=== PATIENT | female | born 1955 | race Caucasian/White ===

== ENCOUNTER 2018-08-17 09:05 | Day surgery (SDC) | payer MEDICARE ==
[~2018-08-17] VITALS: Ht 162.6 cm; Wt 46.7 kg
[~2018-08-17 09:05] MED LIST: ASPI1TAB PO; ATOR1TAB21; KEPP500T13 PO; LIDOCAINE 2% INJ 100 MG/5 ML SDV (FOR ANES.) As Ordered ONE; NS 1,000 ML IV ONE; PROPOFOL 200 MG/20 ML VIAL As Ordered ONE; SERT-138 PO; VITA1DRO SL
--- NOTE | 2018-08-17 10:35 | ROOR ---
Patient Name: Gretchen Mckenna Procedure Date: 08/17/2018 10:05 AM Date of : 1955 Age: 63 Room: [facility] Gender: Female Note Status: Finalized Procedure: Colonoscopy Indications: Screening in patient at increased risk: Family history of 1st-degree relative with colorectal cancer before age 60 years Providers: DO Otto Jones MD: Malaika Hu NP Requesting Provider: Medicines: Propofol per Anesthesia Complications: No immediate complications. Estimated blood loss: None. Procedure: Pre-Anesthesia Assessment: - Prior to the procedure, a History and Physical was performed, and patient medications and allergies were reviewed. The patient is competent. The risks and benefits of the procedure and the sedation options and risks were discussed with the patient. All questions were answered and informed consent was obtained. Patient identification and proposed procedure were verified by the physician, the nurse, the anesthesiologist and the avionics test technician in the endoscopy suite. Mental Status Examination: alert and oriented. Airway Examination: normal oropharyngeal airway and neck mobility. Respiratory Examination: clear to auscultation. CV Examination: normal. Prophylactic Antibiotics: The patient does not require prophylactic antibiotics. Prior Anticoagulants: The patient has taken no previous anticoagulant or antiplatelet agents. ASA Grade Assessment: II - A patient with mild systemic disease. After reviewing the risks and benefits, the patient was deemed in satisfactory condition to undergo the procedure. The anesthesia plan was to use monitored anesthesia care (MAC). Immediately prior to administration of medications, the patient was re-assessed for adequacy to receive sedatives. The heart rate, respiratory rate, oxygen saturations, blood pressure, adequacy of pulmonary ventilation, and response to care were monitored throughout the procedure. The physical status of the patient was re-assessed after the procedure. The Colonoscope was introduced through the anus and advanced to the cecum, identified by the appendiceal orifice, IC valve and transillumination. The colonoscopy was performed without difficulty. The patient tolerated the procedure well. Findings: Multiple small and large-mouthed diverticula were found in the entire colon. The exam was otherwise without abnormality on direct and retroflexion views. Impression: - Diverticulosis in the entire examined colon. - The examination was otherwise normal on direct and retroflexion views. - No specimens collected. Recommendation: - Patient has a contact number available for emergencies. The signs and symptoms of potential delayed complications were discussed with the patient. Return to normal activities tomorrow. Written discharge instructions were provided to the patient. - Repeat colonoscopy in 3 - 5 years for surveillance. - Return to my office PRN. Juvenal Nicholson DO 08/17/2018 10:34:34 AM This report has been signed electronically. Number of Addenda: 0 Note Initiated On: 08/17/2018 10:05 AM Estimated Blood Loss: Estimated blood loss: none.
[2018-08-17 11:05] VITALS: BP 101/59
== END 2018-08-17 11:20 | disposition home or self-care (01) ==
LOC: M OPP 09:05
PROVIDERS: ATTEND Surgery
DX: Z12.11 Encounter for screening for malignant neoplasm of colon (principal); Z80.0 Family history of malignant neoplasm of digestive organs; K57.92 Diverticulitis of intestine, part unspecified, without perforation or abscess without bleeding; E78.5 Hyperlipidemia, unspecified; Z92.21 Personal history of antineoplastic chemotherapy; Z85.3 Personal history of malignant neoplasm of breast; B19.10 Unspecified viral hepatitis B without hepatic coma; M54.9 Dorsalgia, unspecified; F41.9 Anxiety disorder, unspecified; F32.9 Major depressive disorder, single episode, unspecified; R56.9 Unspecified convulsions; C71.9 Malignant neoplasm of brain, unspecified; Z78.0 Asymptomatic menopausal state; Z92.3 Personal history of irradiation; Z87.440 Personal history of urinary (tract) infections; F17.210 Nicotine dependence, cigarettes, uncomplicated; Z88.5 Allergy status to narcotic agent; Z91.040 Latex allergy status; Z91.018 Allergy to other foods; Z79.82 Long term (current) use of aspirin; Z79.899 Other long term (current) drug therapy

== ENCOUNTER → 2019-01-23 | Outpatient (CLI) | payer MEDICARE ==
[~2019-01-23] MED LIST changes: -ASPI1TAB PO; +ASPI81TA26 PO; +CRES20TA2 PO; -LIDOCAINE 2% INJ 100 MG/5 ML SDV (FOR ANES.) As Ordered ONE; +MACR50CA10 PO; +NITR-67 PO; -NS 1,000 ML IV ONE; +PROHANCE 279.3MG/ML 5ML VIAL (A9576) As Ordered ONE; -PROPOFOL 200 MG/20 ML VIAL As Ordered ONE
--- NOTE | 2019-01-24 10:04 | REPVR ---
EXAM: MR Head Without and With Contrast EXAM DATE/TIME: 01/23/2019 3:07 PM CLINICAL HISTORY: 63 years old, female; Condition or disease; Brain tumor; Neoplasm of brain, not specified; Prior surgery; Surgery date: 6+ months; Surgery type: Crainiotomy; Additional info: Restaging brain tumor TECHNIQUE: Imaging protocol: MR of the head without and with intravenous contrast. Contrast material: PROHANCE; Contrast volume: 9 ml; Contrast route: 23G BUTTERFLY; COMPARISON: No relevant prior studies available. FINDINGS: Brain: A large postsurgical cavity centered in the anterior inferior lateral right frontal lobe. There is pre-contrast T1 hyperintensity within the deep margin of the cavity. Comparing precontrast and post contrast T1 images no abnormal enhancement. If this is the first postoperative study, this could be used as a baseline for interval followup. If there are previous postoperative exams, these may be helpful for comparison purposes. Confluent nonspecific Flair/T2 hyperintensities within the cerebral white matter statistically most likely on the basis of chronic small vessel ischemic change. There is a small right convexity subdural collection measuring approximately 3 mm in depth over the right frontal parietal region and approximately 6 mm in depth lateral to the right temporal lobe. Minimal mild mass effect on the underlying cortical sulci but no midline shift. There is no evidence of parenchymal hemorrhage. No extra-axial collections. No subarachnoid blood. Ventricles: Normal. No ventriculomegaly. Bones/joints: Prior right-sided craniotomy. Soft tissues: Normal. Sinuses: Normal as visualized. No acute sinusitis. Mastoid air cells: Normal as visualized. No mastoid effusion. Orbits: Unremarkable. IMPRESSION: Large postsurgical cavity centered in the anterior inferior lateral right frontal lobe. There is pre-contrast T1 hyperintensity within the deep margin of the cavity. Comparing precontrast and post contrast T1 images no suspicious enhancement. If this is the first postoperative study, this could be used as a baseline for interval followup. If there are previous postoperative exams, these may be helpful for comparison purposes. Confluent nonspecific Flair/T2 hyperintensities within the cerebral white matter statistically most likely on the basis of chronic small vessel ischemic change. There is a small right convexity subdural collection measuring approximately 3 mm in depth over the right frontal parietal region and approximately 6 mm in depth lateral to the right temporal lobe. Minimal mild mass effect on the underlying cortical sulci but no midline shift. There is no evidence of parenchymal hemorrhage. No extra-axial collections. No subarachnoid blood. Electronically signed by: Rikki Jaramillo On 01/24/2019 10:04:34 AM
== END ==
LOC: M RAD 12:28
PROVIDERS: ATTEND Internal Medicine Hematology & Oncology
DX: G93.89 Other specified disorders of brain (principal)
CPT/HCPCS: 70553; A9576

== ENCOUNTER → 2019-07-17 | Outpatient (CLI) | payer MEDICARE ==
--- NOTE | 2019-07-17 15:48 | REPVR ---
PROCEDURE INFORMATION: Exam: MR Head Without and With Contrast Exam date and time: 07/17/2019 2:25 PM Age: 64 years old Clinical indication: Condition or disease; Neoplasm of brain, not specified; Prior surgery; Surgery date: 6+ months; Surgery type: Tumor dissection; Patient HX: Recurring brain tumor that has been resected 1x; Additional info: Brain CA, restaging TECHNIQUE: Imaging protocol: MR of the head without and with intravenous contrast. Contrast material: PROHANCE; Contrast volume: 10 ml; Contrast route: 22G ANGIO; COMPARISON: MRI-Brain W/O FOLL BY WITH 01/23/2019 2:22 PM FINDINGS: Limitations: The study is mildly limited due to patient motion artifact. Brain: There is a 4.5 cm cystic resection cavity in the right frontal lobe. Encephalomalacia is present around the resection cavity. No enhancing lesions were identified after the administration of contrast. The previously noted subdural fluid collection around the right cerebral hemisphere has resolved. No restricted diffusion is seen to suggest acute infarction. There is no acute intracranial hemorrhage, cerebral edema, or midline shift. Age-related cerebral and cerebellar substance loss is present. Confluent increased T2 and FLAIR signal within the periventricular and subcortical white matter is present. This is nonspecific but likely related to post treatment changes and/or chronic microangiopathic ischemic changes. Ventricles: Mild ex vacuo dilation of the lateral and third ventricles is noted. Bones/joints: A right frontal craniotomy is noted. Soft tissues: Unremarkable. Sinuses: Normal as visualized. No acute sinusitis. Mastoid air cells: Normal as visualized. No mastoid effusion. Orbits: The patient is likely status post right cataract surgery. IMPRESSION: 1. No acute intracranial abnormality. 2. Chronic findings as discussed above. Electronically signed by: Vernon Sandoval On 07/17/2019 15:48:12 PM
== END ==
LOC: M RAD 12:33
PROVIDERS: ATTEND Internal Medicine Hematology & Oncology
DX: C71.9 Malignant neoplasm of brain, unspecified (principal)
CPT/HCPCS: 70553; A9576

== ENCOUNTER 2020-01-23 09:59 | Inpatient (IN) | payer MEDICARE, MEDICAID ==
[~2020-01-23] VITALS: Ht 162.6 cm; Wt 53.2 kg
[~2020-01-23 09:59] MED LIST changes: +AMOX875T2 PO; -PROHANCE 279.3MG/ML 5ML VIAL (A9576) As Ordered ONE
[2020-01-23] MEDS ORDERED: MORPHINE 4 MG/ML 1ML VIAL/SYRINGE (J2270) IV ONE (10:30)
[2020-01-23] MEDS ORDERED: ONDANSETRON 4MG/2ML VIAL IV ONE (10:30)
[2020-01-23 10:50] LABS: BASO % 0.2 % (0.0-1.0); HEMATOCRIT 39.5 % (36.0-47.0); HEMOGLOBIN 13.3 g/dl (12.0-15.5); LYMPH # 1.4 10^3/uL (1.5-5.0); LYMPH % 11.8 % (24.0-44.0); MEAN CORPUSCULAR HEMOGLOBIN 29.6 pg (27.0-33.0); MEAN CORPUSCULAR HGB CONC 33.7 g/dl (32.0-36.5); MEAN CORPUSCULAR VOLUME 87.8 fl (80.0-96.0); MONO % 8.8 % (0.0-5.0); NEUTROPHILS # 9.2 10^3/uL (1.5-8.5); NEUTROPHILS % 78.7 % (36.0-66.0); PLATELET COUNT, AUTOMATED 257 10^3/uL (150-450); WHITE BLOOD COUNT 11.7 10^3/uL (4.0-10.0)
--- NOTE | 2020-01-23 11:37 | REP ---
Left knee series: Four views. History: Injury in a fall. Findings: Four views of the left knee demonstrate diffuse osteopenia. There is some clothing artifact. No fracture or subluxation is seen. Vascular calcifications noted. Impression: Diffuse osteopenia and vascular calcification. No acute abnormality. Four view knee series. Electronically Signed by Terell Hurtado MD 01/23/2020 11:29 A
--- NOTE | 2020-01-23 11:37 | REP ---
Clinical: Fall. Technique: AP, bilateral oblique and cross-table lateral views of the lumbar spine. Findings: Examination is limited by osteopenia and moderate multilevel degenerative spondylosis. No obvious acute fracture / compression injury or subluxation. Impression: Osteopenia and multilevel degenerative spondylosis. No acute fracture / compression injury or subluxation. Electronically Signed by Rikki Salter MD 01/23/2020 11:29 A
--- NOTE | 2020-01-23 11:41 | REP ---
PELVIS LEFT HIP: Three views. HISTORY: Injury in a fall. FINDINGS: AP view of the pelvis and AP and frog-leg views of the left hip demonstrate a transcervical femoral neck fracture on the left with impaction and varus deformity. There is mild diffuse osteopenia. Bony pelvic ring is intact. No sacral or pelvic fracture is seen. Right hip is intact. Surgical clips are noted in the pelvis. IMPRESSION: Femoral neck fracture on the left with impaction and varus deformity. Electronically Signed by Terell Hurtado MD 01/23/2020 03:55 P
[2020-01-23 12:00] LABS: INR 1.08; PROTHROMBIN TIME 13.7 SECONDS (11.8-14.0)
[2020-01-23 12:01] LABS: PARTIAL THROMBOPLASTIN TIME 38.1 SECONDS (25.0-38.4)
--- NOTE | 2020-01-23 12:08 | REP ---
Clinical: Hip fracture. Technique: Portable AP semiupright view of the chest. Findings: Mediastinum and cardiac silhouette are within normal limits. Lung luna demonstrate chronic-appearing interstitial changes. No focal consolidation, effusion, or pneumothorax. Skeletal structures demonstrate age-related changes. Impression: No acute cardiopulmonary process appreciated. Electronically Signed by Rikki Salter MD 01/23/2020 12:00 P
[2020-01-23 12:10] LABS: ALBUMIN 2.8 GM/DL (3.2-5.2); ALT/SGPT 23 U/L (12-78); BILIRUBIN,DIRECT 0.1 MG/DL (0.0-0.2); BILIRUBIN,TOTAL 0.5 MG/DL (0.2-1.0); BLOOD UREA NITROGEN 17 MG/DL (7-18); CALCIUM LEVEL 7.3 MG/DL (8.8-10.2); CARBON DIOXIDE LEVEL 22 MEQ/L (21-32); CHLORIDE LEVEL 113 MEQ/L (98-107); CREATININE FOR GFR 0.44 MG/DL (0.55-1.30); GLOMERULAR FILTRATION RATE > 60.0 (>45); GLUCOSE, FASTING 107 MG/DL (70-100); POTASSIUM SERUM 3.4 MEQ/L (3.5-5.1); SODIUM LEVEL 141 MEQ/L (136-145); TOTAL PROTEIN 5.9 GM/DL (6.4-8.2)
[2020-01-23] MEDS ORDERED: D31000TA2 PO (13:37)
[2020-01-23] MEDS ORDERED: CYAN100049 PO (13:37)
[2020-01-23] MEDS ORDERED: ONDANSETRON 4MG/2ML VIAL IV PRN ×2 (13:45→23:45)
[2020-01-23] MEDS ORDERED: D5W/0.9% SODIUM CHLORIDE 1,000 ML IV SCH (13:45)
[2020-01-23] MEDS ORDERED: MORPHINE 2 MG/ML 1ML VIAL (J2270) IV PRN (13:45)
[2020-01-23] MEDS ORDERED: MOM 30ML SUSPENSION UDC PO PRN (13:45)
--- NOTE | 2020-01-23 14:22 | HPEPDOC ---
General Date of Admission 01/23/20 Date of Service: Jan 23, 2020 Chief Complaint The patient is a 64-year-old female admitted with a reason for visit of Leg Pain. Source: Patient History of Present Illness 64 year old female had a mechanical fall in her driveway when her left leg became numb and gave way on 01/21/20 and she fell. She called for help and her who was home heard her. She was carried into the house by her and a friend and since then has been laying in the sofa unable to stand up or bear weight on her left leg along with severe pain and muscles spasms. She denied any loss of consciousness. Her pain was 10/10 in intensity , sharp in character at the left groin and associated with severe muscle spasms on minor movement. She did say that she often looses her balance and falls. She fell twice prior to this fall in the last week [place]. In the ED she was found to have left fracture neck femur. 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 recurrent falls. Vit D def Vit B12 def. Surgical History craniotomy C- section x 3 appendectomy ex laparotomy hernia surgery Family History Significant Family History: Cancer (mother coon cancer), Heart disease (father) Social History * Smoker: current smoker Alcohol: occationally (4 to 5 beers a week) A-FIB/CHADSVASC A-FIB History Current/History of A-Fib/PAF?: No Review of Systems Constitutional: Denies: Chills, Fever, Night Sweats Eyes: Denies: Pain, Vision change ENT: Denies: Head Aches, Ear Pain, Dysphagia Skin: Denies: Rash, Lesions, Breakdown Pulmonary: Denies: Dyspnea, Cough Cardiovascular: Denies: Chest Pain, Palpitations, Orthopnea, Paroxysmal Noc. Dyspnea, Lt Headedness Gastrointestinal: Denies: Nausea, Vomiting, Abdominal Pain, Diarrhea Genitourinary: Denies: Dysuria, Frequency, Incontinence, Retention Hematologic: Denies: Bruising, Bleeding Excessively Musculoskeletal: Reports: Joint Pain, Spasms Physical Examination General Exam: Positive: Alert, Cooperative, No Acute Distress Eye Exam: Positive: PERRLA, Conjunctiva & lids normal, EOMI; Negative: Sclera icteric ENT Exam: Positive: Atraumatic, Mucous membr. moist/pink, Pharynx Normal Neck Exam: Positive: Supple; Negative: JVD, thyromegaly Chest Exam: Positive: Clear to auscultation, Normal air movement Heart Exam: Positive: Rate Normal, Regular Rhythm, Normal S1, Normal S2, Murmurs (soft systolic murmur); Negative: Rubs Abdomen Exam: Positive: Normal bowel sounds, Soft; Negative: Tenderness, Hepatospenomegaly Extremity Exam: Positive: Tenderness (let hip and groin area); Negative: Clubbing, Cyanosis, Edema Skin Exam: Positive: Nl turgor and temperature; Negative: Breakdown, Lesion Vital Signs Vital Signs Date Time Temp Pulse Resp B/P (MAP) Pulse Ox O2 Delivery O2 Flow Rate FiO2 01/23/20 11:05 18 01/23/20 10:04 98.0 96 148/79 Room Air Laboratory Data Labs 24H Laboratory Tests 2 01/23/20 10:35: Immature Granulocyte % (Auto) 0.5, Neutrophils (%) (Auto) 78.7H, Lymphocytes (%) (Auto) 11.8L, Monocytes (%) (Auto) 8.8H, Eosinophils (%) (Auto) 0.0, Basophils (%) (Auto) 0.2, Neutrophils # (Auto) 9.2H, Lymphocytes # (Auto) 1.4L, Monocytes # (Auto) 1.0H, Eosinophils # (Auto) 0.0, Basophils # (Auto) 0.0, Nucleated Red Blood Cells % (auto) 0.0 01/23/20 11:25: Prothrombin Time 13.7, Prothromb Time International Ratio 1.08, Activated Partial Thromboplast Time 38.1, Anion Gap 6L, Glomerular Filtration Rate > 60.0, Calcium Level 7.3L, Total Bilirubin 0.5, Direct Bilirubin 0.1, Aspartate Amino Transf (AST/SGOT) 21, Alanine Aminotransferase (ALT/SGPT) 23, Alkaline Phosphatase 62, Total Protein 5.9L, Albumin 2.8L, Albumin/Globulin Ratio 0.9L 01/23/20 12:48: Coronavirus (COVID-19)(PCR) NEGATIVE CBC/BMP Laboratory Tests 01/23/20 10:35 01/23/20 11:25 Assessment/Plan 64 year old female had a mechanical fall in her driveway when her left leg became numb and gave way on 01/21/20 and she fell. She called for help and her who was home heard her. She was carried into the house by her and a friend and since then has been laying in the sofa unable to stand up or bear weight on her left leg along with severe pain and muscles spasms. She denied any loss of consciousness. Her pain was 10/10 in intensity , sharp in character at the left groin and associated with severe muscle spasms on minor movement. She did say that she often looses her balance and falls. She fell twic e prior to this fall in the last week when [place]. In the ED she was found to have left fracture neck femur. Left fracture neck femur ortho consulted Dr Bolivar planned for OR later today NPO, Bedrest, IVF. Morphine for pain control. Post surgery DVT prophylaxis as per ortho. Medical optimization No h/o CAD or CHF , No TIA/ CVA or DM. No CKD EKG sinus rhythm. patient optimized or proposed surgery. Hypokalemia will replace IV Hyperlipidemia statin. H/o of Oligodendroglioma s/p craniotomy and art with mild cognitive impairment Gait disbalance and recurrent falls. PT and OT DVT: TEDs and seq. Plan / VTE VTE Prophylaxis Ordered?: Yes REENA GALVAN MD Jan 23, 2020 14:22
--- NOTE | 2020-01-23 14:35 | ER ---
DATE OF CONSULTATION: 01/23/2020 CHIEF COMPLAINT: Left femoral neck fracture. HISTORY OF PRESENT ILLNESS: This 64-year-old female is seen today for a left hip fracture. She fell in her driveway. She fell using a walker. She normally uses a walker outside the house, otherwise a cane. She had a ground-level fall, was unable to ambulate. I was consulted by the emergency department team at [facility]. She was seen and assessed today at 2 p.m. No head injury or loss of consciousness. No pre-injury hip pain. PAST MEDICAL HISTORY: Includes dyslipidemia and possibly seizures. She is a little bit unclear on her past medical history. MEDICATIONS: Include: - ASA - vitamin D3 - vitamin B12 - simvastatin ALLERGIES: CODEINE, LATEX, and RASPBERRY. PAST SURGICAL HISTORY: None known. SOCIAL HISTORY: She lives with her . They live in a trailer. She uses a walker normally, otherwise a cane. She smokes up to 15 cigarettes a day. Rarely uses alcohol. Does not consume street drugs or IV drugs. PHYSICAL EXAMINATION: Vital Signs: Temperature 98.0. Blood pressure 148/79. Pulse rate 96. Respiratory rate 16. She is on room air. She is alert and times three. She is thin overall. She follows commands. Left hip has no obvious overlying redness, swelling, redness, deformity or atrophy. Left hip was marked. Normal sensation of the foot, superficial and deep peroneal nerves, as well as saphenous, sural, and tibial. She is able wiggle her toes, dorsiflex and plantar flex the foot. Feet are cool but this is the same on both sides. Capillary refill less than 3 seconds. Tibialis and posterior pulse is present but weak. Laboratory examination reveals hemoglobin 13.3. INR 1.08, PT 13.7, APTT 38.1. COVID testing pending. Imaging reveals a left displaced femoral neck fracture. There is moderate hip osteoarthritis. Knee x-ray reviewed. This shows diffuse osteopenia and vascular calcification. No acute abnormalities. No obvious distal extent of the fracture. LB spine radiographs were seen and assessed. No acute fracture or compression injury. ASSESSMENT AND PLAN: 64-year-old female has a left femoral neck fracture that is 100% displaced. We discussed the pros and cons, risks and benefits of nonsurgical management versus surgery. Surgery would be left hip hemiarthroplasty whether cemented or uncemented. One could also consider doing a total hip arthroplasty, but given her preoperative mobility status and no preexisting hip pain I prefer treatment as hemiarthroplasty. Specific surgical risks were discussed include but are not limited to infection, pain, stiffness, weakness, damage to surrounding structures, neurovascular injury, implant related complications like backside warm, implant disassociation, fracture of the implant as well as periprosthetic fracture, intraoperative fracture, instability or dislocation of the hip, anesthetic complications, blood clots, , need for further surgery and other risks not listed. She wished to go ahead. I marked the left lower extremity and signed consent for surgery as well as possible need for blood products. Specific risks include but not limited to infection, bacteria viruses, allergic reaction and fever. She wished to go ahead with a possible need for blood products and signed consent for this as well. I will have the hospitalist see and assess the patient and admit them while they are pending for surgery within the next 48 hours. For now will be made nothing by mouth in preparation for surgery. BRIGID
[2020-01-23] MEDS ORDERED: KCL 40MEQ IN D5/NS 1000ML 1,000 ML IV SCH (15:00)
[2020-01-23] MEDS ORDERED: ceFAZolin 1GM VIAL (J0690 PER 500MG) As Ordered ONE (15:22)
[2020-01-23] MEDS ORDERED: TRANEXAMIC ACID 100 MG/ML 10ML VIAL As Ordered ONE (15:22)
[2020-01-23 15:30] VITALS: BP 149/79
[2020-01-23] MEDS: KCL 40MEQ IN D5/NS 1000ML 1,000 ML IV SCH (16:17)
--- NOTE | 2020-01-23 16:23 | ECGEPIP ---
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
[2020-01-23] MEDS ORDERED: propofoL 200 MG/20 ML VIAL As Ordered ONE (20:35)
[2020-01-23] MEDS ORDERED: LIDOCAINE 2% 100MG/5ML SDV (FOR ANES.) As Ordered ONE (20:35)
[2020-01-23] MEDS ORDERED: BUPIVACAINE/DEXTROSE 0.75% 2 ML AMP As Ordered ONE (20:35)
[2020-01-23] MEDS ORDERED: fentaNYL 100 MCG/2 ML INJECTION (J3010) As Ordered ONE (20:35)
[2020-01-23] MEDS ORDERED: MIDAZOLAM INJ 2MG/2ML VIAL (J2250 PER 1MG) As Ordered ONE (20:35)
[2020-01-23] MEDS: DOCUSATE SODIUM 100 MG CAP PO SCH (20:44)
[2020-01-23] MEDS ORDERED: EPINEPHrine INJ 1 MG/ML 1ML AMP As Ordered ONE (20:51)
[2020-01-23] MEDS ORDERED: PHENYLephrine HCL 500 MCG/5 ML (100MCG/ML) SYRINGE (J2370) As Ordered ONE (21:27)
[2020-01-23] MEDS ORDERED: ceFAZolin 2 GM/D5W 50 ML IV BAG (J0690 PER 500MG) As Ordered ONE (21:36)
[2020-01-23] MEDS ORDERED: ePHEDrine SULFATE 25 MG/5 ML(5MG/ML) SYRINGE As Ordered ONE (22:33)
[2020-01-23] MEDS ORDERED: fentaNYL 100 MCG/2 ML INJECTION (J3010) IV PRN (23:45)
[2020-01-23] MEDS ORDERED: LR 1,000 ML IV SCH (23:45)
--- NOTE | 2020-01-23 23:55 | RO ---
DATE OF PROCEDURE: 01/23/2020 PREOPERATIVE DIAGNOSIS: Left hip femoral neck fracture. POSTOPERATIVE DIAGNOSIS: Left hip femoral neck fracture. PLANNED PROCEDURE: Left hip cemented hemiarthroplasty. PROCEDURE PERFORMED; Left hip cemented hemiarthroplasty. SURGEON: Pranav Bolivar MD AUTO RENTAL SUPERVISOR: None. GLOBAL PROGRAM MANAGER: Tico Saunders TYPE OF ANESTHETIC: Spinal anesthetic. OPERATIVE PREAMBLE: This 64-year-old female had a ground-level fall. She sustained a displaced femoral neck fracture. We talked about the pros, cons, risks, and benefits of nonsurgical management versus going ahead with left hip cemented hemiarthroplasty. I reiterated the risks in preoperative holding. Attempted to reach her ; there are multiple wrong numbers and no answer at the numbers that were there. Marked the left lower extremity and proceeded to surgery. DESCRIPTION OF PROCEDURE: The patient was brought to the operating theater. She was administered spinal anesthetic. She was administered 2 grams of IV Ancef and 3 grams of IV tranexamic acid. The patient was administered light sedation. She was placed left lateral decubitus with the aid of the Starbuck hip positioner. All bony prominences were padded. Sequential compression device (SCDs) used on the down leg. Limb was prepped and draped in the usual sterile fashion allowing over 3 minutes prep solution drying time. Preop time-out was performed to confirm the site, the patient and surgery. Began by making a standard lateral incision centered over the proximal left hip, carried this down through skin and subcutaneous tissue. I curved the incision posteriorly proximally. I incised the tensor fascia evelia in line with skin incision. I sharply dissected off the abductors. I made a T-shaped capsulotomy. I marked these limbs with a #1 Vicryl suture. I made the femoral neck cut approximately one fingerbreadth above the level of the lesser trochanter, 2 cm distal to the cut with preoperative templating. I then removed the head. I sized this to be a 46 mm head. I used the box osteotome to start broaching the canal and lateralizing. I used the lateralizing reamer and canal finding reamer. I broached up to a size 5. This was sitting a little bit proud, so then I reinserted the size 4 broach and used the calcar planer to plane down the calcar. 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 No acetabular fracture. I trialed with a size 4 [employer] femoral stem with standard neck offset with a -3 mm tapered spacer and 46 mm head. This was stable and solid through range of motion. No impingement. No dislocation anteriorly with hip in extension and external rotation and no posterior instability with the hip in flexion and internal rotation. Shuck test was normal with a slight amount of movement. Leg lengths appeared equal. Trials were removed. Femoral canal was prepared using pulse irrigation, acetabulum was washed with pulse irrigation as well. Size 3 distal cement restrictor was trialed and found to be appropriate size and depth. The canal was then again thoroughly irrigated. An epinephrine-soaked gauze was then inserted into the canal. Cement was mixed with third-generation vacuum mixing cement techniques. Cement was allowed to achieve a doughy consistency. Definitive implants were unwrapped and placed on the back table. . The distal cement restrictor was placed to appropriate level of size 3. Then cement was instilled into the canal using third generation pressurizing cement techniques. Final implant size 4 stem was then implanted in the correct version. No calcar fractures were noted throughout broaching and insertion of the stem. Trunnion was cleaned, -3 mm spacer with a size 46 mm head was then impacted using a Bailey taper after the trunnion was cleaned. This was stable and solid. Hip was reduced. It was taken through again a range of motion and shuck test. This was stable and solid. Hip capsule was closed with Vicryl stay sutures. Hip abductors were closed with bone tunnels using #1 Vicryl suture, as well as #2 FiberWire. The tensor fascia evelia was then closed with a Stratafix #1 suture in running fashion. I then closed subcutaneous tissue with interrupted and running #2-0 Vicryl suture. Skin was closed and dressed with Prineo wound and skin closure-type dressing. This was allowed to fully dry after the liquid portion was applied. Skin was cleaned with a wet and dry dressing prior to application of the Prineo dressing. 4 x 8 gauze as well as ABD dressing was then placed with cloth tape over top. The patient was taken out of the Starbuck hip positioner, transferred off the operating table, and taken to the postanesthetic care unit in stable condition. All sponge, needle, and instrument counts were correct. No complications. PLAN FOR THE PATIENT: Begin rivaroxaban 10 mg by mouth once daily for 35 days for venous thromboembolism (VTE) prophylaxis. She will have an x-ray, AP of the hip, in recovery. She will see the physical therapist for appropriate mobilization, weightbearing as tolerated. I did attempt to again call her after the procedure but there was no answer. I will continue to try to reach out to him and round while the patient is in the hospital. Estimated blood loss: 150 mL. No complications.
[2020-01-24] VITALS (10 sets, daily range): BP systolic 121–151; BP diastolic 61–80
[2020-01-24] MEDS ORDERED: MORPHINE 2 MG/ML 1ML VIAL (J2270) IV PRN (00:45)
[2020-01-24] MEDS ORDERED: LR 1,000 ML IV SCH (00:45)
[2020-01-24] MEDS: PERCOCET 5MG/325MG TAB PO PRN ×3 (02:20→14:27)
[2020-01-24] MEDS: ceFAZolin SOD 2 GM in IV 1 EA IV SCH ×2 (05:13→14:27)
[2020-01-24] MEDS: KCL 40MEQ IN D5/NS 1000ML 1,000 ML IV SCH (05:18)
[2020-01-24 05:44] LABS: BASO % 0.1 % (0.0-1.0); EOS % 0.2 % (0.0-3.0); HEMATOCRIT 32.8 % (36.0-47.0); LYMPH # 0.8 10^3/uL (1.5-5.0); LYMPH % 9.4 % (24.0-44.0); MEAN CORPUSCULAR HEMOGLOBIN 29.3 pg (27.0-33.0); MEAN CORPUSCULAR HGB CONC 32.6 g/dl (32.0-36.5); MEAN CORPUSCULAR VOLUME 89.9 fl (80.0-96.0); MONO # 0.9 10^3/uL (0.0-0.8); NEUTROPHILS # 6.5 10^3/uL (1.5-8.5); NEUTROPHILS % 78.9 % (36.0-66.0); PLATELET COUNT, AUTOMATED 193 10^3/uL (150-450); RED BLOOD COUNT 3.65 10^6/uL (4.00-5.40); WHITE BLOOD COUNT 8.2 10^3/uL (4.0-10.0)
[2020-01-24 05:57] LABS: HEMOGLOBIN 10.7 g/dl (12.0-15.5)
[2020-01-24 06:12] LABS: BLOOD UREA NITROGEN 22 MG/DL (7-18); CALCIUM LEVEL 8.2 MG/DL (8.8-10.2); CARBON DIOXIDE LEVEL 27 MEQ/L (21-32); CHLORIDE LEVEL 107 MEQ/L (98-107); CREATININE FOR GFR 0.63 MG/DL (0.55-1.30); GLOMERULAR FILTRATION RATE > 60.0 (>45); GLUCOSE, FASTING 125 MG/DL (70-100); POTASSIUM SERUM 4.2 MEQ/L (3.5-5.1); SODIUM LEVEL 138 MEQ/L (136-145)
--- NOTE | 2020-01-24 07:52 | IPN ---
DATE: 01/24/2020 CHIEF COMPLAINT: Postoperative day #1 left hip hemiarthroplasty for a femoral neck fracture. HISTORY OF PRESENT ILLNESS: 64-year-old female seen on the aguiar. She is doing well. No concerns or complaints from her or the nursing staff. PHYSICAL EXAMINATION: Vital Signs: Blood pressure 133/61, pulse rate 92, temperature 98.4, 94% on room air. Respiratory rate 16. Unlabored breathing. Pulse rate regular. She has a dressing on the left hip. This is clean and dry. She is able to her wiggle toes, dorsiflex and plantar flex the foot. Normal sensation in the foot dorsally and plantarly. The foot is warm and well perfused. Postoperative radiograph was reviewed. This appears normal. The hip is well reduced. The implant appears appropriately position and size. Hemoglobin this morning 10.7. ASSESSMENT AND PLAN: 64-year-old female. We will continue to follow her hemoglobin. She will be followed by the hospitalist service. She will be mobilized weightbearing as tolerated. We will start Xarelto 10 mg by mouth once daily for venous thromboembolism (VTE) prophylaxis starting 24 hours after the surgery. Long-term disposition planning with Lana, our nurse practitioner.
--- NOTE | 2020-01-24 08:15 | REP ---
Clinical: Status post arthroplasty. Technique: Portable supine AP view of the left hip. Findings: The patient is status post left hip replacement with normal positioning and appearance to the femoral and acetabular components. Overlying postsurgical changes appreciated. Impression: Satisfactory left hip replacement radiograph. Electronically Signed by Rikki Salter MD 01/24/2020 08:06 A
--- NOTE | 2020-01-24 08:16 | IPN ---
DATE: 01/24/2020 Gretchen was seen in [address] [place] [address]. She is postoperative day #1 left hip hemiarthroplasty for her left femoral neck fracture. She has a moderate amount of pain. She denies chest pain, shortness of breath or palpitations. PHYSICAL EXAMINATION: Afebrile. 133/61. 98.4 degrees. General Appearance: Alert, conversant, no distress. Speech is a bit dysarthric, which I think was her baseline. HEENT: Unremarkable. Lungs: Clear. Heart: Regular rhythm. Abdomen: Soft. Nontender. No peripheral edema. LABS: White count 8.2, hemoglobin 10.7, and platelets 193. Sodium 138, potassium 4.2, BUN 22, creatinine 0.6, glucose 125. IMPRESSION: 1. Postoperative day #1. Hemoglobin is down a bit. Mild postoperative anemia from blood loss around the fracture. Followup labs have been ordered. 2. Seizure disorder. Continue her current Keppra. 3. History of oligodendrocytoma, status post craniotomy with some mild cognitive dysfunction that might affect rehabilitation potential. 4. History of recurrent falls. She is at risk of further fractures. 5. Suspected osteoporosis. She looks osteoporotic. Primary care provider should consider bone mineral density testing unless this has already been done.
[2020-01-24] MEDS: ROSUVASTATIN 10 MG TAB (CRESTOR) PO SCH (09:46)
[2020-01-24] MEDS: DOCUSATE SODIUM 100 MG CAP PO SCH ×2 (09:46→20:26)
[2020-01-24] MEDS: VITAMIN D 1,000 INTERNATIONAL UNITS TABLET PO SCH (09:46)
[2020-01-24] MEDS: MIRALAX *UNIT DOSE* 17GM PACKET PO SCH (09:46)
[2020-01-24] MEDS: CYANOCOBALAMIN 500 MCG TAB PO SCH (09:46)
[2020-01-24] MEDS ORDERED: XARE10TA PO ×2 (15:00→15:04)
[2020-01-24] MEDS ORDERED: PERC5TAB12 PO (15:00)
[2020-01-24] MEDS: RIVAROXABAN 10 MG TAB (XARELTO) PO SCH (18:10)
[2020-01-25] VITALS (7 sets, daily range): BP systolic 115–150; BP diastolic 60–80
[2020-01-25] MEDS: PERCOCET 5MG/325MG TAB PO PRN ×2 (04:05→20:30)
[2020-01-25 06:54] LABS: BASO % 0.2 % (0.0-1.0); EOS % 0.4 % (0.0-3.0); HEMATOCRIT 33.7 % (36.0-47.0); HEMOGLOBIN 11.1 g/dl (12.0-15.5); LYMPH # 1.3 10^3/uL (1.5-5.0); LYMPH % 13.7 % (24.0-44.0); MEAN CORPUSCULAR HEMOGLOBIN 29.3 pg (27.0-33.0); MEAN CORPUSCULAR HGB CONC 32.9 g/dl (32.0-36.5); MEAN CORPUSCULAR VOLUME 88.9 fl (80.0-96.0); MONO # 1.1 10^3/uL (0.0-0.8); NEUTROPHILS # 6.7 10^3/uL (1.5-8.5); NEUTROPHILS % 73.3 % (36.0-66.0); PLATELET COUNT, AUTOMATED 196 10^3/uL (150-450); RED BLOOD COUNT 3.79 10^6/uL (4.00-5.40); WHITE BLOOD COUNT 9.1 10^3/uL (4.0-10.0)
[2020-01-25 07:19] LABS: BLOOD UREA NITROGEN 21 MG/DL (7-18); CALCIUM LEVEL 8.4 MG/DL (8.8-10.2); CARBON DIOXIDE LEVEL 26 MEQ/L (21-32); CHLORIDE LEVEL 107 MEQ/L (98-107); CREATININE FOR GFR 0.51 MG/DL (0.55-1.30); GLOMERULAR FILTRATION RATE > 60.0 (>45); GLUCOSE, FASTING 111 MG/DL (70-100); POTASSIUM SERUM 3.8 MEQ/L (3.5-5.1); SODIUM LEVEL 139 MEQ/L (136-145)
[2020-01-25] MEDS: CYANOCOBALAMIN 500 MCG TAB PO SCH (09:00)
[2020-01-25] MEDS: VITAMIN D 1,000 INTERNATIONAL UNITS TABLET PO SCH (09:00)
[2020-01-25] MEDS: DOCUSATE SODIUM 100 MG CAP PO SCH ×2 (09:00→20:23)
[2020-01-25] MEDS: NS 1,000 ML IV SCH ×2 (09:17→20:31)
--- NOTE | 2020-01-25 10:03 | REP ---
CT brain: 01/24 at 2019. Indication: Left-sided weakness. Stroke. Brain tumor. Technique: Unenhanced axial CT images of the brain were obtained from skull base to vertex with coronal reconstructions provided. Comparison: MRI brain dated 07/17/2019. Findings: There is no acute intracranial hemorrhage or evidence of an acute cortical infarction. Postoperative sequelae are present on the right status post frontal parietal craniotomy. Resection cavity of the right frontal lobe is present with multiple areas of calcification within the periphery of the cavity. There is no significant mass effect. There is no hydrocephalus. There is a new low attenuating extra-axial collection along the superior right frontal and parietal lobes with the greatest depth measuring 5 mm. Volume loss and sequelae of chronic microangiopathic ischemic disease are redemonstrated. Impression: Small new low attenuating superior right frontal parietal extra-axial collection most consistent with the chronic subdural hemorrhage. Postoperative sequelae with stable appearance of the right frontal lobe resection cavity. No significant mass effect/shift. No acute intracranial hemorrhage, acute cortical infarction or hydrocephalous. Electronically Signed by Balta Mg DO 01/25/2020 09:56 A
[2020-01-25] MEDS: MIRALAX *UNIT DOSE* 17GM PACKET PO SCH (10:21)
--- NOTE | 2020-01-25 18:51 | IPNPDOC ---
Date Seen The patient was seen on 01/25/20. Progress Note SUBJECTIVE: New dense left side paralysis with left side facial droop found this AM on evaluation by nursing. CT head showed small new low attenuating superior right frontal parietal extra-axial collection most consistent with the chronic subdural hemorrhage but no acute intracranial hemorrhage, acute cortical infarction or hydrocephalous. MRI and MRA of brain ordered to be this evening. Dr. Celis, neurology, has seen patient today. Patient denies chest pain, n/v/d, shortness of breath, palpitations. VS have been stable. OBJECTIVE: VITAL SIGNS: Please see below PHYSICAL EXAMINATION: CONSTITUTIONAL: No acute distress, sitting up in bedside chair, AAO x 3 EYES: PERRLA, EOM intact HENT, MOUTH: Normocephalic, atraumatic, moist mucous membranes NECK: SUPPLE, no JVD, no lymphadenopathy, no carotid bruit CV: Regular rate and rhythm, S1S2 normal, no murmurs/rubs/gallops RESPIRATORY: Clear to auscultation bilaterally, no rales/rhonchi/wheezes GI: BS positive in 4 quadrants, soft, nontender, nondistended, no rebound or guarding, no organomegaly : Deferred MUSCULOSKELETAL: Normal ROM. No cyanosis, clubbing, swelling, joint deformity, extremity edema INTEGUMENTARY: Intact, no rashes, no lesions, no erythema NEUROLOGIC: Left upper and lower paralysis, 0/5 strength for both extremities. 4/5 strength in right upper and lower ext. No sensory loss of LLE, LUE. Left side facial droop on exam. PSYCHIATRIC: Mood and affect are normal CURRENT MEDICATIONS: Please see below LABORATORY DATA: Please see below IMAGING: CT head: Small new low attenuating superior right frontal parietal extra-axial collection most consistent with the chronic subdural hemorrhage. Postoperative sequelae with stable appearance of the right frontal lobe resection cavity. No significant mass effect/shift. No acute intracranial hemorrhage, acute cortical infarction or hydrocephalous. ASSESSMENT: 64 y/o F post-op day 2 for left hip cemented hemiarthroplasty with left side paralysis r/o CVA. PLAN: 1. Left side hemiparesis r/o CVA. -CT head above shows no new area of concern; however, with 0/5 strength in LLE, LUE with c/w other imaging -F/u MRI, MRA head -Neurology following -Speech therapy evaluation ordered -F/u echocardiogram -Keep BP systolic > 140 mmHg, increased IVFs to 125 cc/hr -Xarelto, statin. Holding ASA for now. Patient has been on AC after surgery 2. Left hip femoral neck fracture s/p cemented hemiarthroplasty, post-op day 2. -Well healing incision -Pain control PRN, PT/OT -Ortho primary 3. Chronic subdural hemorrhage likely 2/2 to prior fall. -CT head: Small new low attenuating superior right frontal parietal extra-axial collection most consistent with the chronic subdural hemorrhage. -Discussed with neurology. Will keep on AC for now since post op -Daily CT scan of head to ensure it does increase in size. 4. Seizure disorder. -Stable - Continue Keppra. 5. History of oligodendrocytoma, status post craniotomy with some mild cognitive dysfunction -PT/OT. 6. History of recurrent falls. -PT/OT 7. DVT px. Xarelto. DISPOSITION: Will update . C/w plan above. VS, I&O, 24H, [facility] Vital Signs/I&O Vital Signs Date Time Temp Pulse Resp B/P (MAP) Pulse Ox O2 Delivery O2 Flow Rate FiO2 01/25/20 16:02 98.6 109 18 125/60 (81) 95 Room Air I&O- Last 24 Hours up to 6 AM 01/25/20 06:00 Intake Total 410 ml Output Total 0 ml Balance 410 ml Laboratory Data 24H LABS Laboratory Tests 2 01/25/20 06:35: Immature Granulocyte % (Auto) 0.4, Neutrophils (%) (Auto) 73.3H, Lymphocytes (%) (Auto) 13.7L, Monocytes (%) (Auto) 12.0H, Eosinophils (%) (Auto) 0.4, Basophils (%) (Auto) 0.2, Neutrophils # (Auto) 6.7, Lymphocytes # (Auto) 1.3L, Monocytes # (Auto) 1.1H, Eosinophils # (Auto) 0.0, Basophils # (Auto) 0.0, Nucleated Red Blood Cells % (auto) 0.0, Anion Gap 6L, Glomerular Filtration Rate > 60.0, Calcium Level 8.4L CBC/BMP Laboratory Tests 01/25/20 06:35 Current Medications Current Medications Medications (Trade) Dose Ordered Sig/Hanny Route PRN Reason Start Time Stop Time Status Last Admin Dose Admin Acetaminophen (Tylenol Tab) 650 mg Q4HP PRN PO MILD PAIN (PS 1-4) 01/24/20 00:45 Cefazolin Sodium/ Dextrose 2 gm/IV Miscellaneous Supplies 50 ml @ 75 mls/hr Q8H IV 01/24/20 06:00 01/24/20 14:39 DC 01/24/20 14:27 Cyanocobalamin (Vitamin B12) 1,000 mcg DAILY PO 01/24/20 09:00 01/24/20 09:46 Dextrose/Sodium Chloride 1,000 ml @ 75 mls/hr [id number] IV 01/23/20 13:45 01/23/20 14:22 DC Docusate Sodium (Colace) 100 mg BID PO 01/23/20 21:00 01/24/20 20:26 Fentanyl Citrate (Sublimaze) 25 mcg Q5MP PRN IV PAIN LEVEL 5-10 01/23/20 23:45 01/24/20 00:44 DC Home Med (Med Rec Complete!) ASDIRECTED XX 01/23/20 13:45 01/23/20 13:38 DC Lactated Ringer's 1,000 ml @ 80 mls/hr [id number] IV 01/23/20 23:45 01/24/20 00:44 DC Lactated Ringer's 1,000 ml @ 125 mls/hr Q8H IV 01/24/20 00:45 01/24/20 05:18 DC 01/24/20 00:58 Magnesium Hydroxide (Milk Of Magnesia) 30 ml DAILY PRN PO CONSTIPATION 01/23/20 13:45 Miscellaneous (Unresolved Clarification Entry) SEE LABEL COMMENTS DAILY XX 01/24/20 09:00 01/24/20 07:34 DC Morphine Sulfate (Morphine Sulfate Inj) 2 mg Q3H PRN IV SEVERE PAIN (PS 8-10) 01/23/20 13:45 01/24/20 00:33 DC 01/23/20 14:54 Morphine Sulfate (Morphine Sulfate Inj) 2 mg Q4HP PRN IV MODERATE PAIN (PS 5-7) 01/24/20 00:45 Ondansetron HCl (ZOFRAN INJection) 4 mg Q4HP PRN IV NAUSEA OR VOMITING 01/23/20 13:45 Ondansetron HCl (ZOFRAN INJection) 4 mg Q4HP PRN IV NAUSEA OR VOMITING 01/23/20 23:45 01/24/20 00:44 DC Oxycodone/ Acetaminophen (Percocet 5mg/ 325mg Tablet) 1 tab Q4HP PRN PO SEVERE PAIN (PS 8-10) 01/24/20 00:45 01/25/20 04:05 Polyethylene Glycol (Miralax) 1 pkt DAILY PO 01/24/20 09:00 01/24/20 09:46 Potassium Chloride 1,000 ml @ 75 mls/hr [id number] IV 01/23/20 15:00 Cancel Potassium Chloride 1,000 ml @ 75 mls/hr [id number] IV 01/23/20 16:00 01/24/20 14:17 DC 01/23/20 16:17 Rivaroxaban (Xarelto) 10 mg DAILY@18 PO 01/24/20 18:00 01/24/20 18:10 Rosuvastatin Calcium (Crestor) 20 mg DAILY PO 01/24/20 09:00 01/24/20 09:46 Sodium Chloride 1,000 ml @ 125 mls/hr Q8H IV 01/25/20 09:17 01/25/20 09:17 Vitamin D (Vitamin D) 1,000 units DAILY PO 01/24/20 09:00 01/24/20 09:46 Allergies Coded Allergies: codeine (Verified Allergy, Intermediate, hives, 10/27/18) latex (Verified Allergy, Intermediate, hives, 10/27/18) raspberry (Verified Allergy, Intermediate, hives, 10/27/18) Meggan Mota MD Jan 25, 2020 18:51
[2020-01-25] MEDS ORDERED: PROHANCE 279.3MG/ML 5ML VIAL As Ordered ONE (19:17)
[2020-01-25] MEDS: RIVAROXABAN 10 MG TAB (XARELTO) PO SCH (20:31)
[2020-01-25] MEDS: ROSUVASTATIN 10 MG TAB (CRESTOR) PO SCH (20:31)
--- NOTE | 2020-01-25 21:31 | REPVR ---
PROCEDURE INFORMATION: Exam: MR Angiogram Head Without Contrast, Arteries Exam date and time: 01/25/2020 7:58 PM Age: 64 years old Clinical indication: Condition or disease; Cancer; Frontal lobe; Prior surgery; Surgery date: 6+ months; Surgery type: Prior tumor resection, AMS, weakness, confusion; Additional info: R/O CVA, HX of brain cancer S/P craniotomy TECHNIQUE: Imaging protocol: MR angiogram head without contrast. Exam focused on the arteries. 3D rendering: MIP and/or 3D reconstructed images were created by the technologist. COMPARISON: MRI-Brain W/O FOLL BY WITH 07/17/2019 1:28 PM FINDINGS: Anterior cerebral arteries: Intracranial segment is patent with no significant stenosis. No aneurysm. Right internal carotid artery: Intracranial segment is patent with no significant stenosis. No aneurysm. Right middle cerebral artery: No occlusion or significant stenosis. No aneurysm. Right posterior cerebral artery: Mild stenoses in the right [employer] without occlusion. Right vertebral artery: No occlusion or significant stenosis. No aneurysm. Left internal carotid artery: Intracranial segment is patent with no significant stenosis. No aneurysm. Left middle cerebral artery: No occlusion or significant stenosis. No aneurysm. Left posterior cerebral artery: Mild stenoses in the left [employer] without occlusion. Left vertebral artery: No occlusion or significant stenosis. No aneurysm. Basilar artery: No occlusion or significant stenosis. No aneurysm. IMPRESSION: 1. Mild nonocclusive stenoses in the posterior cerebral arteries. 2. Otherwise unremarkable MRA. No other significant stenosis, aneurysm, or vascular occlusion. Electronically signed by: Ventura Joseph On 01/25/2020 21:31:03 PM
--- NOTE | 2020-01-25 21:36 | REPVR ---
PROCEDURE INFORMATION: Exam: MR Head Without and With Contrast Exam date and time: 01/25/2020 7:58 PM Age: 64 years old Clinical indication: Condition or disease; Brain tumor; Neoplasm of brain, uncertain behavior; Prior surgery; Surgery date: 6+ months; Surgery type: Resected tumor; Patient HX: AMS, confusion, weakness, status post crainiotomy; Additional info: R/O CVA, HX of brain cancer S/P craniotomy TECHNIQUE: Imaging protocol: MR of the head without and with intravenous contrast. Contrast material: PROHANCE; Contrast volume: 10 ml; Contrast route: INTRAVENOUS (IV); COMPARISON: MRI-Brain W/O FOLL BY WITH 07/17/2019 1:28 PM FINDINGS: Limitations: The exam is degraded by patient motion artifact. Brain: There is acute lacunar infarct in the posterior right lentiform nucleus extending into the periventricular white matter. Additional small lacunar infarct in the medial right frontal cortex. No mass or abnormal contrast enhancement. Postoperative changes in the right frontal lobe. Generalized mild cerebral volume loss and changes of chronic white matter microvascular disease. No midline shift or herniation. Ventricles: Normal. No ventriculomegaly. Bones/joints: Prior right frontal craniotomy. Sinuses: Normal as visualized. No acute sinusitis. Mastoid air cells: Normal as visualized. No mastoid effusion. Orbits: Unremarkable. Soft tissues: Unremarkable. IMPRESSION: 1. Motion limited exam. 2. Acute lacunar infarcts in the posterior right lentiform nucleus extending to the periventricular white matter and right medial frontal lobe. 3. Stable postoperative changes. No new mass is seen. Electronically signed by: Ventura Joseph On 01/25/2020 21:36:23 PM
[2020-01-26] VITALS (8 sets, daily range): BP systolic 111–155; BP diastolic 58–76
[2020-01-26] MEDS: NS 1,000 ML IV SCH ×3 (04:20→18:31)
[2020-01-26] MEDS: PERCOCET 5MG/325MG TAB PO PRN ×3 (04:41→21:32)
[2020-01-26 04:51] LABS: BASO % 0.3 % (0.0-1.0); EOS # 0.2 10^3/uL (0.0-0.5); EOS % 2.6 % (0.0-3.0); HEMATOCRIT 28.7 % (36.0-47.0); HEMOGLOBIN 9.4 g/dl (12.0-15.5); LYMPH # 1.2 10^3/uL (1.5-5.0); LYMPH % 16.2 % (24.0-44.0); MEAN CORPUSCULAR HEMOGLOBIN 29.6 pg (27.0-33.0); MEAN CORPUSCULAR HGB CONC 32.8 g/dl (32.0-36.5); MEAN CORPUSCULAR VOLUME 90.3 fl (80.0-96.0); MONO # 0.8 10^3/uL (0.0-0.8); MONO % 10.6 % (0.0-5.0); NEUTROPHILS # 5.1 10^3/uL (1.5-8.5); NEUTROPHILS % 69.8 % (36.0-66.0); PLATELET COUNT, AUTOMATED 197 10^3/uL (150-450); RED BLOOD COUNT 3.18 10^6/uL (4.00-5.40); WHITE BLOOD COUNT 7.3 10^3/uL (4.0-10.0)
[2020-01-26 05:12] LABS: BLOOD UREA NITROGEN 22 MG/DL (7-18); CALCIUM LEVEL 7.6 MG/DL (8.8-10.2); CARBON DIOXIDE LEVEL 26 MEQ/L (21-32); CHLORIDE LEVEL 111 MEQ/L (98-107); CREATININE FOR GFR 0.54 MG/DL (0.55-1.30); GLOMERULAR FILTRATION RATE > 60.0 (>45); GLUCOSE, FASTING 87 MG/DL (70-100); POTASSIUM SERUM 3.7 MEQ/L (3.5-5.1); SODIUM LEVEL 144 MEQ/L (136-145)
--- NOTE | 2020-01-26 06:16 | ECHO ---
DATE OF PROCEDURE: 01/25/2020 DATE OF : 1955 INPATIENT: PCU - Room [address]226 REFERRING PHYSICIAN: Dr. Meggan Mota INDICATION: CVA - ? cardiac source of embolic material. MEASUREMENTS: 2-D Measurements: RV: 3.7 cm LV: 3.8 cm Septum: 1.0 cm Posterior wall: 1.0 cm Aortic root: 3.2 cm LA: 2.8 cm LVEF: 75-80% Doppler Measurements: AV: 1.2 m/s LVOT: 1.11 m/s LVOT diameter: 1.8 cm MV - E 68 A 101 EA ratio 0.7 Early mitral deceleration time: 132 ms E prime medial: 6 A prime medial: 8 E prime lateral: 10.5 PV: 1.0 m/s Pulmonary artery acceleration time: 102 ms PASP: 34 mmHg IVC: 1.7 cm COMMENTS: Sinus tachycardia without intraventricular conduction disturbance. M-mode and two-dimensional echocardiography was performed with pulsed, continuous wave, color flow and tissue Doppler studies. Normal left ventricular size and wall thickness with hyperkinetic wall motion. Normal left atrial size with grade 1 LV diastolic dysfunction, but currently normal estimated mean left atrial pressure. Normal right heart chamber sizes and motion with Doppler evidence of borderline pulmonary hypertension. Normal IVC size and collapse against an elevated central venous pressure. Normal aortic dimensions. Normal-appearing aortic valvular apparatus without functional valvular abnormality. Normal-appearing mitral valvular apparatus and leaflet excursion with no posterior systolic buckling. No apparent insufficiency. Normal appearing tricuspid valve with trace insufficiency. No apparent intracardiac mass or pericardial effusion.
--- NOTE | 2020-01-26 10:14 | IPN ---
DATE: 01/26/2020 CHIEF COMPLAINT: Postoperative day two left hip hemiarthroplasty and recent lacunar infarct. HISTORY OF PRESENT ILLNESS: This 64-year-old female underwent left cemented hemiarthroplasty 2 days ago. Unfortunately, yesterday she developed acute onset of left upper and left lower extremity weakness. She was investigated by the hospitalist and neurologist and found to have an acute stroke. PHYSICAL EXAMINATION: 64-year-old female. 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 Vital signs are stable. Temperature 97.8. Blood pressure 115/58. Pulse rate 83. 95% on room air. She has unlabored breathing. The incision looks clean, dry, free of complications, redness, swelling or drainage on left hip. She is unable to wiggle her toes or dorsiflex or plantar flex her. She states that she has good sensation to the dorsal and plantar aspect of the foot. There is a good tibialis and posterior pulse. The foot is warm and well-perfused. She has difficulties as well with movement of the left upper extremity. MRI of her brain demonstrates acute lacunar infarcts in the posterior right lentiform nucleus extending to the periventricular white matter right medial frontal lobe. Stable postoperative changes noted. No masses seen. ASSESSMENT/PLAN: 64-year-old female. We will continue to attempt to mobilize her for her postoperative hip fracture. In terms of her new-onset stroke, she is being followed by the hospitalist and neurology service for that. They recommend continuing anticoagulation with the typical regimen after hip fracture surgery and I agree with this assessment. I will follow her over the weekend.
[2020-01-26] MEDS: VITAMIN D 1,000 INTERNATIONAL UNITS TABLET PO SCH (10:28)
[2020-01-26] MEDS: MIRALAX *UNIT DOSE* 17GM PACKET PO SCH (10:28)
[2020-01-26] MEDS: ROSUVASTATIN 10 MG TAB (CRESTOR) PO SCH (10:30)
[2020-01-26] MEDS: DOCUSATE SODIUM 100 MG CAP PO SCH ×2 (10:30→21:00)
[2020-01-26] MEDS: CYANOCOBALAMIN 500 MCG TAB PO SCH (10:31)
--- NOTE | 2020-01-26 15:17 | CR ---
DATE OF CONSULTATION: 01/25/2020 REASON FOR CONSULTATION: Suspected stroke. HISTORY OF PRESENT ILLNESS: Gretchen loya a 64-year-old female who presented to [facility] after having a fall on January 21, 2020 resulting in a left femoral neck fracture. The patient has a past medical history significant for right frontal oligodendroglioma status post craniotomy in remission. The patient did also receive radiation therapy for that. She states she has been unsteady generally speaking and often does fall. However, this fall she felt her leg gave out similar to any other fall. The patient ended up having a left hip cemented hemiarthroplasty. The patient was doing well and last seen normal on January 23 around 9 p.m. The following morning she was noted to have dense hemiparesis of the left arm and left leg. The patient had a head CT, which showed possibility new low attenuating superior right frontal parietal extra-axial collection most consistent with chronic subdural hemorrhage with no acute intracranial hemorrhage, acute cortical infarction or hydrocephalus was noted. MR angiography of the brain did not reveal any high-grade intracranial stenosis. However, MRI of the brain did reveal an acute lacunar infarction in the posterior right lentiform nucleus extending into the periventricular white matter, as well as the right medial frontal lobe having a lacunar infarction as well. The patient was taking aspirin and statin therapy prior to her admission. However, after the hip surgery, she was placed on Xarelto, which she can continue to prevent any further strokes at this time. The patient's blood pressure has been fluctuating; ideal blood pressure would be between 140-180 for the next 48 hours. She should remain on statin therapy. Echocardiogram was obtained, which did not reveal any significant finding. Right to left shunting was not commented on during this study. The patient will likely need a carotid ultrasound to out any carotid vascular stenosis. At present time, the patient is verbal, able to follow commands and communicate. Her speech is without dysarthria or aphasia. She does not have any hemisensory loss of the left arm or leg, but has dense flaccid hemiparesis. REVIEW OF SYSTEMS: 14-point review of systems obtained and is negative except as per history of present illness. PAST MEDICAL HISTORY: 1. Right frontal lobe oligodendroglioma status craniotomy and radiation therapy in remission. 2. Diverticulosis. 3. Abscess rupture, status post laparotomy. 4. Hyperlipidemia. 5. Mild cognitive impairment. 6. Incisional hernia. 7. Recurrent falls. 8 . Vitamin D deficiency. 9. Vitamin B12. SURGICAL HISTORY: Craniotomy. x3, appendectom, exploratory laparotomy and hernia surgery. FAMILY HISTORY: Noncontributory. SOCIAL HISTORY: The patient is a smoker and uses 4 or 5 alcoholic beverages or beer per week. Denies any recreational drug use. ALLERGIES: Latex spray. HOME MEDICATIONS: Aspirin 81 mg by mouth daily, vitamin D3 1000 international units by mouth daily, B12 1000 mcg by mouth daily, Crestor 20 mg by mouth daily PHYSICAL EXAMINATION: Temperature is 97.8 degrees Fahrenheit, blood pressure is 111/58, heart rate 83, respiratory rate is 16, oxygenation is 95% on room air. The patient is awake, alert, oriented to person, place and time. Speech language comprehension, repetition are all intact. The patient has no facial asymmetry. Tongue is midline. Extraocular movements are intact without nystagmus. Hearing is equal to finger rub. Sensation V1-V2 to V3 is intact to light touch. There is no pronator drift of the right upper extremity. There is no ataxia, dysmetria. The right upper extremity. The patient has decreased strength in the right quadriceps, grade 4 plus iliopsoas is 5- and anterior tibialis is 5-. On the right, the patient has zero strength in the left arm and left leg. She has normal intact light touch sensation in the arm and leg. She has increased reflexes in the upper extremities of 3 and reduced at the patellas and Achilles. Babinski signs are absent. Gait deferred. Romberg deferred. ASSESSMENT: 1. 64-year-old female status post fall on January 21, 2020 resulting in the left femoral neck fracture status post left hip cemented hemiarthroplasty. On the evening of January 24, 2020, the patient was noted to the less normal found on January 24 in the morning to have dense left hemiparesis resulting from the noted stroke occurring on the brain scan involving the right posterior lentiform nucleus extending into the periventricular white matter and right medial frontal lobe. PLAN: 1. Completed carotid ultrasound. 2. Continue Xarelto until orthopedic clears her to stop. Once that decision is made, the patient should be switched over to 81 mg aspirin. Continue Crestor 20 mg daily. Check lipid panel, hemoglobin A1c. Smoking cessation counseling provided the patient. Recommend systolic blood pressure remained between 140-180 for the next 48 hours. Increase IV fluids to help augment pressures. 3. Physical therapy (PT), occupational therapy (OT) involving the left arm to be started sooner than later. PT/OT of the left lower extremity as per orthopedic surgery. Unfortunately due to the dense hemiparesis, this will make it quite difficult for the patient to have meaningful use of the left arm and left leg at this time. The patient can followup in the [facility] within the first month of discharge.
--- NOTE | 2020-01-26 15:30 | IPNPDOC ---
Date Seen The patient was seen on 01/26/20. Progress Note SUBJECTIVE: MRI brain showed acute lacunar infarcts in the posterior right lentiform nucleus extending to the periventricular white matter and right medial frontal lobe, no new mass is seen. Some improvements on movement of left hand, still cannot move left lower ext at all. Worked with PT/OT this AM. Patient denies chest pain, n/v/d, shortness of breath, palpitations. VS have been stable. OBJECTIVE: VITAL SIGNS: Please see below PHYSICAL EXAMINATION: CONSTITUTIONAL: No acute distress, sitting up in bedside chair, AAO x 3 EYES: PERRLA, EOM intact HENT, MOUTH: Normocephalic, atraumatic, moist mucous membranes NECK: SUPPLE, no JVD, no lymphadenopathy, no carotid bruit CV: Regular rate and rhythm, S1S2 normal, no murmurs/rubs/gallops RESPIRATORY: Clear to auscultation bilaterally, no rales/rhonchi/wheezes GI: BS positive in 4 quadrants, soft, nontender, nondistended, no rebound or guarding, no organomegaly : Deferred MUSCULOSKELETAL: Normal ROM. 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 Cannot lift left upper extremity off bed. 0/5 strength for LLE. 4/5 strength in right upper and lower ext. No sensory loss of LLE, LUE. Left side facial droop still on exam. PSYCHIATRIC: Mood and affect are normal CURRENT MEDICATIONS: Please see below LABORATORY DATA: Please see below IMAGING: MRI brain: 2. Acute lacunar infarcts in the posterior right lentiform nucleus extending to the periventricular white matter and right medial frontal lobe. 3. Stable postoperative changes. No new mass is seen. MRA brain: 1. Mild nonocclusive stenoses in the posterior cerebral arteries. 2. Otherwise unremarkable MRA. No other significant stenosis, aneurysm, or vascular occlusion. CT head: Small new low attenuating superior right frontal parietal extra-axial collection most consistent with the chronic subdural hemorrhage. Postoperative sequelae with stable appearance of the right frontal lobe resecti on cavity. No significant mass effect/shift. No acute intracranial hemorrhage, acute cortical infarction or hydrocephalous. ASSESSMENT: 64 y/o F post-op day 3 for left hip cemented hemiarthroplasty with left side paralysis r/o CVA. PLAN: 1. CVA, acute lacunar infarcts in the posterior right lentiform nucleus extending to the periventricular white matter and right medial frontal lobe. -MRI, MRA head above -Speech therapy evaluation ordered, oral dysphagia characterized by decreased awareness of the left oral cavity, decreased bolus manipulation, and decreased mastication.Recommending pureed diet with thin liquids to decrease risk of choking -Echocardiogram reading pending -Keep BP systolic > 140 mmHg, IVFs to 100 cc/hr -Xarelto, statin. Holding ASA for now. Patient has been on AC after surgery -Neurology following 2. Left hip femoral neck fracture s/p cemented hemiarthroplasty, post-op day 3. -Well healing incision -Pain control PRN, PT/OT -Ortho primary 3. Chronic subdural hemorrhage likely 2/2 to prior fall. -CT head: Small new low attenuating superior right frontal parietal extra-axial collection most consistent with the chronic subdural hemorrhage. -Discussed with neurology. Will keep on AC for now since post op -CT scan of head 01/27/20 to ensure it doesn't increase in size. 4. Seizure disorder. -Stable - Continue Keppra. 5. History of oligodendrocytoma, status post craniotomy with some mild cognitive dysfunction -PT/OT. 6. History of recurrent falls. -PT/OT 7. DVT px. Xarelto. DISPOSITION: Will attempt to call again today to update. C/w plan above. VS, I&O, 24H, Fishbone Vital Signs/I&O Vital Signs Date Time Temp Pulse Resp B/P (MAP) Pulse Ox O2 Delivery O2 Flow Rate FiO2 01/26/20 12:00 98.0 93 18 133/76 (95) 94 Room Air I&O- Last 24 Hours up to 6 AM 01/26/20 06:00 Intake Total 500 ml Output Total 0 ml Balance 500 ml Laboratory Data 24H LABS Laboratory Tests 2 01/26/20 04:18: Immature Granulocyte % (Auto) 0.5, Neutrophils (%) (Auto) 69.8H, Lymphocytes (%) (Auto) 16.2L, Monocytes (%) (Auto) 10.6H, Eosinophils (%) (Auto) 2.6, Basophils (%) (Auto) 0.3, Neutrophils # (Auto) 5.1, Lymphocytes # (Auto) 1.2L, Monocytes # (Auto) 0.8, Eosinophils # (Auto) 0.2, Basophils # (Auto) 0.0, Nucleated Red Blood Cells % (auto) 0.0, Anion Gap 7L, Glomerular Filtration Rate > 60.0, Calcium Level 7.6L CBC/BMP Laboratory Tests 01/26/20 04:18 Current Medications Current Medications Medications (Trade) Dose Ordered Sig/Hanny Route PRN Reason Start Time Stop Time Status Last Admin Dose Admin Acetaminophen (Tylenol Tab) 650 mg Q4HP PRN PO MILD PAIN (PS 1-4) 01/24/20 00:45 Cefazolin Sodium/ Dextrose 2 gm/IV Miscellaneous Supplies 50 ml @ 75 mls/hr Q8H IV 01/24/20 06:00 01/24/20 14:39 DC 01/24/20 14:27 Cyanocobalamin (Vitamin B12) 1,000 mcg DAILY PO 01/24/20 09:00 01/26/20 10:31 Dextrose/Sodium Chloride 1,000 ml @ 75 mls/hr [id number] IV 01/23/20 13:45 01/23/20 14:22 DC Docusate Sodium (Colace) 100 mg BID PO 01/23/20 21:00 01/26/20 10:30 Fentanyl Citrate (Sublimaze) 25 mcg Q5MP PRN IV PAIN LEVEL 5-10 01/23/20 23:45 01/24/20 00:44 DC Home Med (Med Rec Complete!) ASDIRECTED XX 01/23/20 13:45 01/23/20 13:38 DC Lactated Ringer's 1,000 ml @ 80 mls/hr [id number] IV 01/23/20 23:45 01/24/20 00:44 DC Lactated Ringer's 1,000 ml @ 125 mls/hr Q8H IV 01/24/20 00:45 01/24/20 05:18 DC 01/24/20 00:58 Magnesium Hydroxide (Milk Of Magnesia) 30 ml DAILY PRN PO CONSTIPATION 01/23/20 13:45 Miscellaneous (Unresolved Clarification Entry) SEE LABEL COMMENTS DAILY XX 01/24/20 09:00 01/24/20 07:34 DC Morphine Sulfate (Morphine Sulfate Inj) 2 mg Q3H PRN IV SEVERE PAIN (PS 8-10) 01/23/20 13:45 01/24/20 00:33 DC 01/23/20 14:54 Morphine Sulfate (Morphine Sulfate Inj) 2 mg Q4HP PRN IV MODERATE PAIN (PS 5-7) 01/24/20 00:45 Ondansetron HCl (ZOFRAN INJection) 4 mg Q4HP PRN IV NAUSEA OR VOMITING 01/23/20 13:45 Ondansetron HCl (ZOFRAN INJection) 4 mg Q4HP PRN IV NAUSEA OR VOMITING 01/23/20 23:45 01/24/20 00:44 DC Oxycodone/ Acetaminophen (Percocet 5mg/ 325mg Tablet) 1 tab Q4HP PRN PO SEVERE PAIN (PS 8-10) 01/24/20 00:45 01/26/20 10:30 Polyethylene Glycol (Miralax) 1 pkt DAILY PO 01/24/20 09:00 01/26/20 10:28 Potassium Chloride 1,000 ml @ 75 mls/hr [id number] IV 01/23/20 15:00 Cancel Potassium Chloride 1,000 ml @ 75 mls/hr [id number] IV 01/23/20 16:00 01/24/20 14:17 DC 01/23/20 16:17 Rivaroxaban (Xarelto) 10 mg DAILY@18 PO 01/24/20 18:00 01/25/20 20:31 Rosuvastatin Calcium (Crestor) 20 mg DAILY PO 01/24/20 09:00 01/26/20 10:30 Sodium Chloride 1,000 ml @ 100 mls/hr Q10H IV 01/25/20 09:17 01/26/20 10:31 Vitamin D (Vitamin D) 1,000 units DAILY PO 01/24/20 09:00 01/26/20 10:28 Allergies Coded Allergies: codeine (Verified Allergy, Intermediate, hives, 10/27/18) latex (Verified Allergy, Intermediate, hives, 10/27/18) raspberry (Verified Allergy, Intermediate, hives, 10/27/18) Meggan Mota MD Jan 26, 2020 15:30
--- NOTE | 2020-01-26 16:46 | ECGEPIP ---
[facility] Test Date: 2020-01-25 Pat Name: VU KHAN Department: Room: [place] [address] Gender: Female Senior Administrative Support: BRAXTON : 1955 Requested By: Meggan Hudson Order Number: [id number] Reading MD: Lenny Parsons Measurements Intervals [place] Rate: 101 P: 61 AL: 148 QRS: 45 QRSD: 88 T: 56 QT: 325 QTc: 422 Interpretive Statements SINUS TACHYCARDIA MINIMAL ST DEPRESSION EARLY REPOLARIZATION ABNORMAL RHYTHM ECG PRIOR ON 01/23/20 AT 11:49. NO REMARKABLE CHANGES BUT FASTER HEART RATE Electronically Signed on 01-26-2020 16:45:47 EDT by Lenny Parsons
[2020-01-26] MEDS: RIVAROXABAN 10 MG TAB (XARELTO) PO SCH (17:31)
[2020-01-26] MEDS: ACETAMINOPHEN TAB 650MG DOSE (2X325MG) PO PRN (22:17)
[2020-01-27] VITALS: BP 112/67
[2020-01-27 04:00] VITALS: BP 149/72
[2020-01-27] MEDS: NS 1,000 ML IV SCH (04:29)
[2020-01-27 06:52] LABS: BASO % 0.3 % (0.0-1.0); EOS # 0.3 10^3/uL (0.0-0.5); EOS % 5.1 % (0.0-3.0); HEMATOCRIT 30.4 % (36.0-47.0); HEMOGLOBIN 9.8 g/dl (12.0-15.5); LYMPH % 15.8 % (24.0-44.0); MEAN CORPUSCULAR HGB CONC 32.2 g/dl (32.0-36.5); MEAN CORPUSCULAR VOLUME 89.9 fl (80.0-96.0); MONO # 0.6 10^3/uL (0.0-0.8); MONO % 10.1 % (0.0-5.0); NEUTROPHILS # 4.2 10^3/uL (1.5-8.5); PLATELET COUNT, AUTOMATED 207 10^3/uL (150-450); RED BLOOD COUNT 3.38 10^6/uL (4.00-5.40); WHITE BLOOD COUNT 6.1 10^3/uL (4.0-10.0)
--- NOTE | 2020-01-27 07:03 | REPVR ---
PROCEDURE INFORMATION: Exam: CT Head Without Contrast Exam date and time: 01/27/2020 6:00 AM Age: 64 years old Clinical indication: Other: F/u study; Patient HX: F/u/study; Additional info: F/u on lacunar infarct TECHNIQUE: Imaging protocol: Computed tomography of the head without contrast. Radiation optimization: All CT scans at this facility use at least one of these dose optimization techniques: automated exposure control; mA and/or kV adjustment per patient size (includes targeted exams where dose is matched to clinical indication); or iterative reconstruction. COMPARISON: CT Head without contrast 01/25/2020 9:46 AM FINDINGS: Brain: Exam redemonstrates hypodensity in the posterior limb of the right internal capsule known to represent an acute lacunar infarct as described on recent MRI report. Hypodensity within the white matter most suggestive of chronic small vessel ischemic/gliotic change. There is no evidence of parenchymal hemorrhage. No acute extra-axial collections. No subarachnoid blood. Cerebrovascular calcifications. Ventricles: The ventricular system is midline and normal in size for the degree of sulcal dilatation. No acute hydrocephalus. Bones/joints: Previous right frontal craniotomy with resection cavity in the right frontal lobe anterolateral and inferiorly. There is some associated peripheral dystrophic calcifications similar to prior study. There is no evidence of acute fracture. Previous right frontal craniotomy. Sinuses: The demonstrated paranasal sinuses are free of air-fluid level or suspicious mass. Minimal mucosal thickening. Mastoid air cells: Visualized mastoid air cells are free of acute inflammatory change. Orbits: The included orbital structures are unremarkable. Soft tissues: No large soft tissue hematoma. Please correlate clinically. IMPRESSION: 1. Exam redemonstrates hypodensity in the posterior limb of the right internal capsule known to represent an acute lacunar infarct as described on recent MRI report. 2. Nonemergent/chronic findings as described in the body of report. Electronically signed by: Rikki Jaramillo On 01/27/2020 07:02:43 AM
[2020-01-27 07:12] VITALS: BP 166/74
[2020-01-27 07:16] LABS: BLOOD UREA NITROGEN 13 MG/DL (7-18); CALCIUM LEVEL 7.5 MG/DL (8.8-10.2); CARBON DIOXIDE LEVEL 23 MEQ/L (21-32); CHLORIDE LEVEL 111 MEQ/L (98-107); GLOMERULAR FILTRATION RATE > 60.0 (>45); GLUCOSE, FASTING 120 MG/DL (70-100); POTASSIUM SERUM 3.5 MEQ/L (3.5-5.1); SODIUM LEVEL 141 MEQ/L (136-145)
[2020-01-27] MEDS: DOCUSATE SODIUM 100 MG CAP PO SCH ×2 (09:00→21:00)
[2020-01-27] MEDS: MIRALAX *UNIT DOSE* 17GM PACKET PO SCH (10:24)
[2020-01-27] MEDS: ROSUVASTATIN 10 MG TAB (CRESTOR) PO SCH (10:25)
[2020-01-27] MEDS: VITAMIN D 1,000 INTERNATIONAL UNITS TABLET PO SCH (10:25)
[2020-01-27] MEDS: CYANOCOBALAMIN 500 MCG TAB PO SCH (10:25)
[2020-01-27 12:00] VITALS: BP 159/73
--- NOTE | 2020-01-27 13:02 | IPNPDOC ---
Date Seen The patient was seen on 01/27/20. Progress Note SUBJECTIVE: Chest pain this AM, substernal, crushing and she states it lasted 20 mins, resolved on its own. No ECG was obtained at that time early AM, trop neg. No improvements from neuro exam 01/26/20. She still cannot move left lower ext at all. Patient denies chest pain, n/v/d, shortness of breath, palpitations. VS have been stable. OBJECTIVE: VITAL SIGNS: Please see below PHYSICAL EXAMINATION: CONSTITUTIONAL: No acute distress, sitting up in bedside chair, AAO x 3 EYES: PERRLA, EOM intact HENT, MOUTH: Normocephalic, atraumatic, moist mucous membranes NECK: SUPPLE, no JVD, no lymphadenopathy, no carotid bruit CV: Regular rate and rhythm, S1S2 normal, no murmurs/rubs/gallops RESPIRATORY: Clear to auscultation bilaterally, no rales/rhonchi/wheezes GI: BS positive in 4 quadrants, soft, nontender, nondistended, no rebound or guarding, no organomegaly : Deferred MUSCULOSKELETAL: Normal ROM. 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 Cannot lift left upper extremity off bed. 0/5 strength for LLE. 4/5 strength in right upper and lower ext. No sensory loss of LLE, LUE. Left side facial droop still on exam. PSYCHIATRIC: Mood and affect are normal CURRENT MEDICATIONS: Please see below LABORATORY DATA: Please see below IMAGING: CT head 01/27/20: 1. Exam redemonstrates hypodensity in the posterior limb of the right internal capsule known to represent an acute lacunar infarct as described on recent MRI report. 2. Nonemergent/chronic findings as described in the body of report. Echocardiogram: EF 75-80% Sinus tachycardia without intraventricular conduction disturbance. M-mode and two-dimensional echocardiography was performed with pulsed, continuous wave, color flow and tissue Doppler studies. Normal left ventricular size and wall thickness with hyperkinetic wall motion. Normal left atrial size with grade 1 LV diastolic dysfunction, but currently normal estimated mean left atrial pressure. Normal right heart chamber sizes and motion with Doppler evidence of borderline pulmonary hypertension. Normal IVC size and collapse against an elevated central venous pressure. Normal aortic dimensions. Normal-appearing aortic valvular apparatus without functional valvular abnormality. Normal-appearing mitral valvular apparatus and leaflet excursion with no posterior systolic buckling. No apparent insufficiency. Normal appearing tricuspid valve with trace insufficiency. No apparent intracardiac mass or pericardial effusion. MRI brain: 2. Acute lacunar infarcts in the posterior right lentiform nucleus extending to the periventricular white matter and right medial frontal lobe. 3. Stable postoperative changes. No new mass is seen. MRA brain: 1. Mild nonocclusive stenoses in the posterior cerebral arteries. 2. Otherwise unremarkable MRA. No other significant stenosis, aneurysm, or vascular occlusion. ASSESSMENT: 64 y/o F post-op day 4 for left hip cemented hemiarthroplasty with left side paralysis 2/2 to acute CVA. PLAN: 1. CVA, acute lacunar infarcts in the posterior right lentiform nucleus extending to the periventricular white matter and right medial frontal lobe. -MRI, MRA head above -Echocardiogram above -Xarelto, statin. Holding ASA for now. Patient has been on AC after surgery -Neurology has evaluated -PT/OT: impaired functional mobility makes patient fall risk, unsafe for discharge home. Benefits from continued rehab 2. Left hip femoral neck fracture s/p cemented hemiarthroplasty, post-op day 4. -Well healing incision -Pain control PRN, PT/OT -Ortho primary 3. Chronic subdural hemorrhage likely 2/2 to prior fall. -CT head: Small new low attenuating superior right frontal parietal extra-axial collection most consistent with the chronic subdural hemorrhage. -Discussed with neurology. Will keep on AC for now since post op -CT scan of head 01/27/20: nonemergent/chronic findings -C/w anticoagulation safely. 4. Seizure disorder. -Stable - Continue Keppra. 5. History of oligodendrocytoma, status post craniotomy with some mild cognitive dysfunction -PT/OT. 6. History of recurrent falls. -PT/OT 7. DVT px. Xarelto. DISPOSITION: Discussed case with her daughter Kenyatta , as I have been unable to get ahold of the patient's for several days (please see prior notes). Her number will be listed as alternative contact. For now, discharge plan is undecided. Patient will require continued rehabilitation. VS, I&O, 24H, [place] Vital Signs/I&O Vital Signs Date Time Temp Pulse Resp B/P (MAP) Pulse Ox O2 Delivery O2 Flow Rate FiO2 01/27/20 07:12 98.5 86 18 166/74 (104) 96 Room Air I&O- Last 24 Hours up to 6 AM 01/27/20 06:00 Intake Total 1440 ml Output Total 0 ml Balance 1440 ml Laboratory Data 24H LABS Laboratory Tests 2 01/27/20 06:20: Immature Granulocyte % (Auto) 0.7, Neutrophils (%) (Auto) 68.0H, Lymphocytes (%) (Auto) 15.8L, Monocytes (%) (Auto) 10.1H, Eosinophils (%) (Auto) 5.1H, Basophils (%) (Auto) 0.3, Neutrophils # (Auto) 4.2, Lymphocytes # (Auto) 1.0L, Monocytes # (Auto) 0.6, Eosinophils # (Auto) 0.3, Basophils # (Auto) 0.0, Nucleated Red Blood Cells % (auto) 0.0, Anion Gap 7L, Glomerular Filtration Rate > 60.0, Calcium Level 7.5L 01/27/20 09:13: Troponin I < 0.02 CBC/BMP Laboratory Tests 01/27/20 06:20 Current Medications Current Medications Medications (Trade) Dose Ordered Sig/Hanny Route PRN Reason Start Time Stop Time Status Last Admin Dose Admin Acetaminophen (Tylenol Tab) 650 mg Q4HP PRN PO MILD PAIN (PS 1-4) 01/24/20 00:45 01/26/20 22:17 Cefazolin Sodium/ Dextrose 2 gm/IV Miscellaneous Supplies 50 ml @ 75 mls/hr Q8H IV 01/24/20 06:00 01/24/20 14:39 DC 01/24/20 14:27 Cyanocobalamin (Vitamin B12) 1,000 mcg DAILY PO 01/24/20 09:00 01/27/20 10:25 Dextrose/Sodium Chloride 1,000 ml @ 75 mls/hr [id number] IV 01/23/20 13:45 01/23/20 14:22 DC Docusate Sodium (Colace) 100 mg BID PO 01/23/20 21:00 01/26/20 10:30 Fentanyl Citrate (Sublimaze) 25 mcg Q5MP PRN IV PAIN LEVEL 5-10 01/23/20 23:45 01/24/20 00:44 DC Home Med (Med Rec Complete!) ASDIRECTED XX 01/23/20 13:45 01/23/20 13:38 DC Lactated Ringer's 1,000 ml @ 80 mls/hr [id number] IV 01/23/20 23:45 01/24/20 00:44 DC Lactated Ringer's 1,000 ml @ 125 mls/hr Q8H IV 01/24/20 00:45 01/24/20 05:18 DC 01/24/20 00:58 Magnesium Hydroxide (Milk Of Magnesia) 30 ml DAILY PRN PO CONSTIPATION 01/23/20 13:45 Miscellaneous (Unresolved Clarification Entry) SEE LABEL COMMENTS DAILY XX 01/24/20 09:00 01/24/20 07:34 DC Morphine Sulfate (Morphine Sulfate Inj) 2 mg Q3H PRN IV SEVERE PAIN (PS 8-10) 01/23/20 13:45 01/24/20 00:33 DC 01/23/20 14:54 Morphine Sulfate (Morphine Sulfate Inj) 2 mg Q4HP PRN IV MODERATE PAIN (PS 5-7) 01/24/20 00:45 Ondansetron HCl (ZOFRAN INJection) 4 mg Q4HP PRN IV NAUSEA OR VOMITING 01/23/20 13:45 Ondansetron HCl (ZOFRAN INJection) 4 mg Q4HP PRN IV NAUSEA OR VOMITING 01/23/20 23:45 01/24/20 00:44 DC Oxycodone/ Acetaminophen (Percocet 5mg/ 325mg Tablet) 1 tab Q4HP PRN PO SEVERE PAIN (PS 8-10) 01/24/20 00:45 01/26/20 21:32 Polyethylene Glycol (Miralax) 1 pkt DAILY PO 01/24/20 09:00 01/27/20 10:24 Potassium Chloride 1,000 ml @ 75 mls/hr [id number] IV 01/23/20 15:00 Cancel Potassium Chloride 1,000 ml @ 75 mls/hr [id number] IV 01/23/20 16:00 01/24/20 14:17 DC 01/23/20 16:17 Rivaroxaban (Xarelto) 10 mg DAILY@18 PO 01/24/20 18:00 01/26/20 17:31 Rosuvastatin Calcium (Crestor) 20 mg DAILY PO 01/24/20 09:00 01/27/20 10:25 Sodium Chloride 1,000 ml @ 100 mls/hr Q10H IV 01/25/20 09:17 01/27/20 04:29 Vitamin D (Vitamin D) 1,000 units DAILY PO 01/24/20 09:00 01/27/20 10:25 Allergies Coded Allergies: codeine (Verified Allergy, Intermediate, hives, 10/27/18) latex (Verified Allergy, Intermediate, hives, 10/27/18) raspberry (Verified Allergy, Intermediate, hives, 10/27/18) Meggan Mota MD Jan 27, 2020 13:02
[2020-01-27 15:37] VITALS: BP 168/72
[2020-01-27] MEDS: PERCOCET 5MG/325MG TAB PO PRN ×2 (15:49→22:04)
[2020-01-27] MEDS: RIVAROXABAN 10 MG TAB (XARELTO) PO SCH (19:48)
[2020-01-27 20:00] VITALS: BP 159/77
[2020-01-28] VITALS: BP 146/70
[2020-01-28 04:00] VITALS: BP 139/68
[2020-01-28 04:54] LABS: BASO % 0.4 % (0.0-1.0); EOS # 0.3 10^3/uL (0.0-0.5); EOS % 5.9 % (0.0-3.0); HEMATOCRIT 31.8 % (36.0-47.0); HEMOGLOBIN 10.4 g/dl (12.0-15.5); LYMPH # 0.9 10^3/uL (1.5-5.0); LYMPH % 15.8 % (24.0-44.0); MEAN CORPUSCULAR HEMOGLOBIN 29.1 pg (27.0-33.0); MEAN CORPUSCULAR HGB CONC 32.7 g/dl (32.0-36.5); MEAN CORPUSCULAR VOLUME 88.8 fl (80.0-96.0); MONO # 0.6 10^3/uL (0.0-0.8); MONO % 10.9 % (0.0-5.0); NEUTROPHILS # 3.8 10^3/uL (1.5-8.5); NEUTROPHILS % 66.6 % (36.0-66.0); PLATELET COUNT, AUTOMATED 284 10^3/uL (150-450); RED BLOOD COUNT 3.58 10^6/uL (4.00-5.40); WHITE BLOOD COUNT 5.6 10^3/uL (4.0-10.0)
[2020-01-28] MEDS: PERCOCET 5MG/325MG TAB PO PRN (05:06)
[2020-01-28 05:15] LABS: BLOOD UREA NITROGEN 9 MG/DL (7-18); CALCIUM LEVEL 8.1 MG/DL (8.8-10.2); CARBON DIOXIDE LEVEL 26 MEQ/L (21-32); CHLORIDE LEVEL 107 MEQ/L (98-107); CHOLESTEROL LEVEL 128 MG/DL (<200); CREATININE FOR GFR 0.53 MG/DL (0.55-1.30); GLOMERULAR FILTRATION RATE > 60.0 (>45); GLUCOSE, FASTING 105 MG/DL (70-100); HDL CHOLESTEROL 25 MG/DL (>40); LDL CHOLESTEROL 68 MG/DL (<100); NON-HDL-C 103 MG/DL; POTASSIUM SERUM 3.5 MEQ/L (3.5-5.1); SODIUM LEVEL 138 MEQ/L (136-145); TRIGLYCERIDES LEVEL 176 MG/DL (<150)
[2020-01-28] MEDS ORDERED: diphenhydrAMINE CREAM 30GM TOP PRN (05:30)
[2020-01-28 07:54] VITALS: BP 121/64
--- NOTE | 2020-01-28 08:05 | REPVR ---
PROCEDURE INFORMATION: Exam: CT Head Without Contrast Exam date and time: 01/28/2020 6:00 AM Age: 64 years old Clinical indication: Other: F/u lacunar infarct; Additional info: F/u on lacunar infarct TECHNIQUE: Imaging protocol: Computed tomography of the head without contrast. Radiation optimization: All CT scans at this facility use at least one of these dose optimization techniques: automated exposure control; mA and/or kV adjustment per patient size (includes targeted exams where dose is matched to clinical indication); or iterative reconstruction. COMPARISON: CT Head without contrast 01/27/2020 6:37 AM FINDINGS: Brain: Encephalomalacia and gliosis with peripheral calcification about the resection cavity in the right frontal lobe is stable. Moderate generalized cerebral volume loss and extensive patchy and confluent white matter hypoattenuation, commonly secondary to chronic small vessel ischemic change. Moderate intracranial atherosclerosis. Similar hypoattenuation within the right posterior limb internal capsule corresponding to known lacunar infarction. No evidence of new acute ischemic change. No evidence of hemorrhage. Ventricles: Ventriculomegaly, in keeping with degree of parenchymal volume loss. Bones/joints: Surgical change from previous right frontal craniotomy. Sinuses: Visualized sinuses are unremarkable. No fluid levels. Mastoid air cells: Visualized mastoid air cells are well aerated. Soft tissues: Unremarkable. 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 Electronically signed by: [place] On 01/28/2020 08:05:17 AM
[2020-01-28] MEDS: DOCUSATE SODIUM 100 MG CAP PO SCH ×2 (09:00→21:00)
[2020-01-28] MEDS: CYANOCOBALAMIN 500 MCG TAB PO SCH (09:38)
[2020-01-28] MEDS: ROSUVASTATIN 10 MG TAB (CRESTOR) PO SCH (09:38)
[2020-01-28] MEDS: VITAMIN D 1,000 INTERNATIONAL UNITS TABLET PO SCH (09:38)
[2020-01-28] MEDS: MIRALAX *UNIT DOSE* 17GM PACKET PO SCH (09:38)
--- NOTE | 2020-01-28 11:13 | IPNPDOC ---
Text Note Date of Service The patient was seen on 01/28/20. NOTE SUBJECTIVE: Remains the same. She still cannot move left lower ext or upper ex tremity. Patient denies chest pain, n/v/d, shortness of breath, palpitations. VS have been stable. Trying to eat breakfast but says she is left handed so it is difficult. PHYSICAL EXAMINATION: VITAL SIGNS: Please see below CONSTITUTIONAL: No acute distress, sitting up in bedside chair, AAO x 3 EYES: PERRLA, EOM intact HENT, MOUTH: Normocephalic, atraumatic, moist mucous membranes NECK: SUPPLE, no JVD, no lymphadenopathy, no carotid bruit CV: Regular rate and rhythm, S1S2 normal, no murmurs/rubs/gallops RESPIRATORY: Clear to auscultation bilaterally, no rales/rhonchi/wheezes GI: BS positive in 4 quadrants, soft, nontender, nondistended, no rebound or guarding, no organomegaly : Deferred MUSCULOSKELETAL: Normal ROM. 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 Cannot lift left upper extremity off bed. 0/5 strength for LLE. 4/5 strength in right upper and lower ext. No sensory loss of LLE, LUE. Left side facial droop still on exam. 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 CT head 01/27/20: Exam redemonstrates hypodensity in the posterior limb of the right internal capsule known to represent an acute lacunar infarct as described on recent MRI report. MRI brain: 01/25/20 2. Acute lacunar infarcts in the posterior right lentiform nucleus extending to the periventricular white matter and right medial frontal lobe. 3. Stable postoperative changes. No new mass is seen. MRA brain: 01/24/30 1. Mild nonocclusive stenoses in the posterior cerebral arteries. 2. Otherwise unremarkable MRA. No other significant stenosis, aneurysm, or vascular occlusion. Echocardiogram: EF 75-80% Sinus tachycardia without intraventricular conduction disturbance. M-mode and two-dimensional echocardiography was performed with pulsed, con tinuous wave, color flow and tissue Doppler studies. Normal left ventricular size and wall thickness with hyperkinetic wall motion. Normal left atrial size with grade 1 LV diastolic dysfunction, but currently normal estimated mean left atrial pressure. Normal right heart chamber sizes and motion with Doppler evidence of borderline pulmonary hypertension. Normal IVC size and collapse against an elevated central venous pressure. Normal aortic dimensions. Normal-appearing aortic valvular apparatus without functional valvular abnormality. Normal-appearing mitral valvular apparatus and leaflet excursion with no posterior systolic buckling. No apparent insufficiency. Normal appearing tricuspid valve with trace insufficiency. No apparent intracardiac mass or pericardial effusion. 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 She is now s/p left hip cemented hemiarthroplasty on 01/23/20 with acute onset left sided paralysis on 01/25/20 found to have to acute CVA. CVA, acute lacunar infarcts in the posterior right lentiform nucleus extending to the periventricular white matter and right medial frontal lobe. -MRI, MRA head above -Echocardiogram above -Xarelto, statin. Holding ASA for now. Patient has been on AC after surgery -Neurology has evaluated -PT/OT: impaired functional mobility makes patient fall risk, unsafe for discharge home. Benefits from continued rehab Left hip femoral neck fracture s/p cemented hemiarthroplasty -Well healing incision -Pain control PRN, PT/OT -Ortho primary Chronic subdural hemorrhage likely 2/2 to prior falls. -CT head: Small new low attenuating superior right frontal parietal extra-axial collection most consistent with the chronic subdural hemorrhage. -Will keep on AC for now since post op -C/w anticoagulation safely. Seizure disorder. -Stable - Continue Keppra. History of oligodendrocytoma, status post craniotomy with some mild cognitive dysfunction -PT/OT. History of recurrent falls. -PT/OT DVT px. Xarelto. DISPOSITION: Patient will require continued rehabilitation. VS,Fishbone, I+O VS, Fishbone, I+O Laboratory Tests 01/28/20 04:12 Vital Signs Date Time Temp Pulse Resp B/P (MAP) Pulse Ox O2 Delivery O2 Flow Rate FiO2 01/28/20 07:54 97.5 78 18 121/64 (83) 94 Room Air I&O- Last 24 Hours up to 6 AM 01/28/20 06:00 Intake Total 1360 ml Output Total 1300 ml Balance 60 ml REENA GALVAN MD Jan 28, 2020 11:13
[2020-01-28] MEDS ORDERED: SLF 3 ML SYR IV PRN (11:30)
[2020-01-28 12:00] VITALS: BP 150/69
[2020-01-28] MEDS: SLF 3 ML SYR IV SCH ×2 (14:00→21:12)
[2020-01-28 15:54] VITALS: BP 139/61
[2020-01-28] MEDS: RIVAROXABAN 10 MG TAB (XARELTO) PO SCH (18:17)
[2020-01-28 20:00] VITALS: BP 137/73
[2020-01-29] VITALS (7 sets, daily range): BP systolic 110–132; BP diastolic 61–84
[2020-01-29] MEDS: SLF 3 ML SYR IV SCH ×3 (05:10→20:09)
[2020-01-29 05:25] LABS: BASO % 0.4 % (0.0-1.0); EOS # 0.4 10^3/uL (0.0-0.5); EOS % 6.5 % (0.0-3.0); HEMATOCRIT 32.2 % (36.0-47.0); HEMOGLOBIN 10.4 g/dl (12.0-15.5); LYMPH # 1.1 10^3/uL (1.5-5.0); LYMPH % 20.7 % (24.0-44.0); MEAN CORPUSCULAR HEMOGLOBIN 28.6 pg (27.0-33.0); MEAN CORPUSCULAR HGB CONC 32.3 g/dl (32.0-36.5); MEAN CORPUSCULAR VOLUME 88.5 fl (80.0-96.0); MONO # 0.7 10^3/uL (0.0-0.8); MONO % 12.6 % (0.0-5.0); NEUTROPHILS # 3.2 10^3/uL (1.5-8.5); NEUTROPHILS % 59.4 % (36.0-66.0); PLATELET COUNT, AUTOMATED 271 10^3/uL (150-450); RED BLOOD COUNT 3.64 10^6/uL (4.00-5.40); WHITE BLOOD COUNT 5.4 10^3/uL (4.0-10.0)
[2020-01-29 05:45] LABS: BLOOD UREA NITROGEN 14 MG/DL (7-18); CALCIUM LEVEL 8.1 MG/DL (8.8-10.2); CARBON DIOXIDE LEVEL 27 MEQ/L (21-32); CHLORIDE LEVEL 106 MEQ/L (98-107); CREATININE FOR GFR 0.46 MG/DL (0.55-1.30); GLOMERULAR FILTRATION RATE > 60.0 (>45); GLUCOSE, FASTING 84 MG/DL (70-100); POTASSIUM SERUM 3.8 MEQ/L (3.5-5.1); SODIUM LEVEL 142 MEQ/L (136-145)
[2020-01-29] MEDS ORDERED: traMADol 50 MG TAB PO PRN (07:45)
[2020-01-29] MEDS: VITAMIN D 1,000 INTERNATIONAL UNITS TABLET PO SCH (08:26)
[2020-01-29] MEDS: ROSUVASTATIN 10 MG TAB (CRESTOR) PO SCH (08:27)
[2020-01-29] MEDS: CYANOCOBALAMIN 500 MCG TAB PO SCH (08:27)
[2020-01-29] MEDS: DOCUSATE SODIUM 100 MG CAP PO SCH ×2 (08:27→20:08)
[2020-01-29] MEDS: MIRALAX *UNIT DOSE* 17GM PACKET PO SCH (08:27)
--- NOTE | 2020-01-29 09:03 | IPNPDOC ---
Text Note Date of Service The patient was seen on 01/29/20. NOTE SUBJECTIVE: Remains the same. Dense hemiplegia on the left. Patient denies ch est pain, n/v/d, shortness of breath, palpitations. VS have been stable. PHYSICAL EXAMINATION: VITAL SIGNS: Please see below CONSTITUTIONAL: No acute distress, sitting up in bedside chair, AAO x 3 EYES: PERRLA, EOM intact HENT, MOUTH: Normocephalic, atraumatic, moist mucous membranes NECK: SUPPLE, no JVD, no lymphadenopathy, no carotid bruit CV: Regular rate and rhythm, S1S2 normal, no murmurs/rubs/gallops RESPIRATORY: Clear to auscultation bilaterally, no rales/rhonchi/wheezes GI: BS positive in 4 quadrants, soft, nontender, nondistended, no rebound or guarding, no organomegaly : Deferred MUSCULOSKELETAL: Normal ROM. 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 Cannot lift left upper extremity off bed. 0/5 strength for LLE. 4/5 strength in right upper and lower ext. No sensory loss of LLE, LUE. Left side facial droop still on exam. 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 CT head 01/27/20: Exam redemonstrates hypodensity in the posterior limb of the right internal capsule known to represent an acute lacunar infarct as described on recent MRI report. MRI brain: 01/25/20 2. Acute lacunar infarcts in the posterior right lentiform nucleus extending to the periventricular white matter and right medial frontal lobe. 3. Stable postoperative changes. No new mass is seen. MRA brain: 01/24/30 1. Mild nonocclusive stenoses in the posterior cerebral arteries. 2. Otherwise unremarkable MRA. No other significant stenosis, aneurysm, or vascular occlusion. Echocardiogram: EF 75-80% Sinus tachycardia without intraventricular conduction disturbance. M-mode and two-dimensional echocardiography was performed with pulsed, co ntinuous wave, color flow and tissue Doppler studies. Normal left ventricular size and wall thickness with hyperkinetic wall motion. Normal left atrial size with grade 1 LV diastolic dysfunction, but currently normal estimated mean left atrial pressure. Normal right heart chamber sizes and motion with Doppler evidence of borderline pulmonary hypertension. Normal IVC size and collapse against an elevated central venous pressure. Normal aortic dimensions. Normal-appearing aortic valvular apparatus without functional valvular abnormality. Normal-appearing mitral valvular apparatus and leaflet excursion with no posterior systolic buckling. No apparent insufficiency. Normal appearing tricuspid valve with trace insufficiency. No apparent intracardiac mass or pericardial effusion. 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 She is now s/p left hip cemented hemiarthroplasty on 01/23/20 with acute onset left sided paralysis on 01/25/20 found to have to acute CVA. CVA, acute lacunar infarcts in the posterior right lentiform nucleus extending to the periventricular white matter and right medial frontal lobe. -MRI, MRA head above -Echocardiogram above -Tele no arrhythmia -Xarelto, statin. Holding ASA for now. Patient has been on AC after surgery -Neurology has evaluated -PT/OT: impaired functional mobility makes patient fall risk, unsafe for discharge home. Benefits from continued rehab Left hip femoral neck fracture s/p cemented hemiarthroplasty -Well healing incision -Pain control PRN, PT/OT -Ortho primary Chronic subdural hemorrhage likely 2/2 to prior falls. -CT head: Small new low attenuating superior right frontal parietal extra-axial collection most consistent with the chronic subdural hemorrhage. -Will keep on AC for now since post op -C/w anticoagulation safely. Seizure disorder. -Stable -Continue Keppra. History of oligodendrocytoma, status post craniotomy with some mild cognitive dysfunction -PT/OT. History of recurrent falls. -PT/OT DVT px. Xarelto. DISPOSITION: Patient will require continued rehabilitation. VS,Fishbone, I+O VS, Fishbone, I+O Laboratory Tests 01/29/20 04:33 Vital Signs Date Time Temp Pulse Resp B/P (MAP) Pulse Ox O2 Delivery O2 Flow Rate FiO2 01/29/20 08:00 97.1 102 20 117/61 (79) 97 Room Air I&O- Last 24 Hours up to 6 AM 01/29/20 06:00 Intake Total 240 ml Output Total 150 ml Balance 90 ml REENA GALVAN MD Jan 29, 2020 09:03
[2020-01-29] MEDS: RIVAROXABAN 10 MG TAB (XARELTO) PO SCH (18:01)
[2020-01-29] MEDS ORDERED: QUEtiapine FUMARATE 25 MG TAB PO ONE (18:30)
[2020-01-30 06:00] VITALS: BP 142/76
[2020-01-30 06:07] LABS: BASO % 0.4 % (0.0-1.0); EOS # 0.3 10^3/uL (0.0-0.5); EOS % 5.2 % (0.0-3.0); HEMATOCRIT 29.7 % (36.0-47.0); HEMOGLOBIN 9.7 g/dl (12.0-15.5); LYMPH # 1.1 10^3/uL (1.5-5.0); LYMPH % 21.2 % (24.0-44.0); MEAN CORPUSCULAR HEMOGLOBIN 28.5 pg (27.0-33.0); MEAN CORPUSCULAR HGB CONC 32.7 g/dl (32.0-36.5); MEAN CORPUSCULAR VOLUME 87.4 fl (80.0-96.0); MONO # 0.6 10^3/uL (0.0-0.8); MONO % 11.7 % (0.0-5.0); NEUTROPHILS # 3.1 10^3/uL (1.5-8.5); NEUTROPHILS % 60.7 % (36.0-66.0); PLATELET COUNT, AUTOMATED 276 10^3/uL (150-450); WHITE BLOOD COUNT 5.2 10^3/uL (4.0-10.0)
[2020-01-30 06:37] LABS: BLOOD UREA NITROGEN 20 MG/DL (7-18); CARBON DIOXIDE LEVEL 26 MEQ/L (21-32); CHLORIDE LEVEL 106 MEQ/L (98-107); CREATININE FOR GFR 0.41 MG/DL (0.55-1.30); GLOMERULAR FILTRATION RATE > 60.0 (>45); GLUCOSE, FASTING 89 MG/DL (70-100); POTASSIUM SERUM 3.7 MEQ/L (3.5-5.1); SODIUM LEVEL 139 MEQ/L (136-145)
[2020-01-30] MEDS: SLF 3 ML SYR IV SCH ×3 (06:54→21:46)
[2020-01-30] MEDS: DOCUSATE SODIUM 100 MG CAP PO SCH ×2 (09:00→20:34)
[2020-01-30] MEDS: ROSUVASTATIN 10 MG TAB (CRESTOR) PO SCH (10:05)
[2020-01-30] MEDS: VITAMIN D 1,000 INTERNATIONAL UNITS TABLET PO SCH (10:05)
[2020-01-30] MEDS: MIRALAX *UNIT DOSE* 17GM PACKET PO SCH (10:06)
[2020-01-30] MEDS: CYANOCOBALAMIN 500 MCG TAB PO SCH (10:06)
[2020-01-30] MEDS ORDERED: FLEET ENEMA PR PRN (11:45)
[2020-01-30 14:00] VITALS: BP 129/60
--- NOTE | 2020-01-30 16:02 | IPNPDOC ---
Text Note Date of Service The patient was seen on 01/30/20. NOTE SUBJECTIVE: Remains the same. Dense hemiplegia on the left. Keeps head turned to the right. Complains of pain on the left neck. Patient denies chest pain, n/v/d, shortness of breath, palpitations. VS have been stable. PHYSICAL EXAMINATION: VITAL SIGNS: Please see below CONSTITUTIONAL: No acute distress, sitting up in bedside chair, AAO x 3 EYES: PERRLA, EOM intact HENT, MOUTH: Normocephalic, atraumatic, moist mucous membranes NECK: SUPPLE, no JVD, no lymphadenopathy, no carotid bruit CV: Regular rate and rhythm, S1S2 normal, no murmurs/rubs/gallops RESPIRATORY: Clear to auscultation bilaterally, no rales/rhonchi/wheezes GI: BS positive in 4 quadrants, soft, nontender, nondistended, no rebound or guarding, no organomegaly : Deferred MUSCULOSKELETAL: Normal ROM. 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 Cannot lift left upper extremity off bed. 0/5 strength for LLE. 4/5 strength in right upper and lower ext. No sensory loss of LLE, LUE. Left side facial droop still on exam. 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 CT head 01/27/20: Exam redemonstrates hypodensity in the posterior limb of the right internal capsule known to represent an acute lacunar infarct as described on recent MRI report. MRI brain: 01/25/20 2. Acute lacunar infarcts in the posterior right lentiform nucleus extending to the periventricular white matter and right medial frontal lobe. 3. Stable postoperative changes. No new mass is seen. MRA brain: 01/24/30 1. Mild nonocclusive stenoses in the posterior cerebral arteries. 2. Otherwise unremarkable MRA. No other significant stenosis, aneurysm, or vascular occlusion. Echocardiogram: EF 75-80% Sinus tachycardia without intraventricular conduction disturbance. M-mode and two-dimensional echocardiography was performed with pulsed, continuous wave, color flow and tissue Doppler studies. Normal left ventricular size and wall thickness with hyperkinetic wall motion. Normal left atrial size with grade 1 LV diastolic dysfunction, but currently normal estimated mean left atrial pressure. Normal right heart chamber sizes and motion with Doppler evidence of borderline pulmonary hypertension. Normal IVC size and collapse against an elevated central venous pressure. Normal aortic dimensions. Normal-appearing aortic valvular apparatus without functional valvular abno rmality. Normal-appearing mitral valvular apparatus and leaflet excursion with no posterior systolic buckling. No apparent insufficiency. Normal appearing tricuspid valve with trace insufficiency. No apparent intracardiac mass or pericardial effusion. 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 She is now s/p left hip cemented hemiarthroplasty on 01/23/20 with acute onset left sided paralysis on 01/25/20 found to have to acute CVA. CVA, acute lacunar infarcts in the posterior right lentiform nucleus extending to the periventricular white matter and right medial frontal lobe. -MRI, MRA head above -Echocardiogram above -Tele no arrhythmia -Xarelto, statin. Holding ASA for now. Patient has been on AC after surgery -Neurology has evaluated -PT/OT: impaired functional mobility makes patient fall risk, unsafe for discharge home. Benefits from continued rehab Left hip femoral neck fracture s/p cemented hemiarthroplasty -Well healing incision -Pain control PRN, PT/OT -Ortho primary Chronic subdural hemorrhage likely 2/2 to prior falls. -CT head: Small new low attenuating superior right frontal parietal extra-axial collection most consistent with the chronic subdural hemorrhage. -Will keep on AC for now since post op -C/w anticoagulation safely. Seizure disorder. -Stable -used to be on Keppra but patient was not taking at home. -not on any meds. History of oligodendrocytoma, status post craniotomy with some mild cognitive dysfunction -PT/OT. History of recurrent falls. -PT/OT DVT px. Xarelto. DISPOSITION: Patient will require continued rehabilitation. VS,Fishbone, I+O VS, Fishbone, I+O Laboratory Tests 01/30/20 05:35 Vital Signs Date Time Temp Pulse Resp B/P (MAP) Pulse Ox O2 Delivery O2 Flow Rate FiO2 01/30/20 06:00 97.9 94 16 142/76 (98) 96 Room Air I&O- Last 24 Hours up to 6 AM 01/30/20 06:00 Intake Total 880 ml Output Total 50 ml Balance 830 ml REENA GALVAN MD Jan 30, 2020 16:02
[2020-01-30] MEDS: RIVAROXABAN 10 MG TAB (XARELTO) PO SCH (18:27)
[2020-01-30] MEDS: ACETAMINOPHEN TAB 650MG DOSE (2X325MG) PO PRN (19:17)
[2020-01-30 22:00] VITALS: BP 119/76
[2020-01-31] MEDS: SLF 3 ML SYR IV SCH (05:40)
[2020-01-31 06:00] VITALS: BP 130/63
[2020-01-31] MEDS: DOCUSATE SODIUM 100 MG CAP PO SCH (08:35)
[2020-01-31] MEDS: CYANOCOBALAMIN 500 MCG TAB PO SCH (08:36)
[2020-01-31] MEDS: VITAMIN D 1,000 INTERNATIONAL UNITS TABLET PO SCH (08:36)
[2020-01-31] MEDS: ROSUVASTATIN 10 MG TAB (CRESTOR) PO SCH (08:36)
[2020-01-31] MEDS: MIRALAX *UNIT DOSE* 17GM PACKET PO SCH (08:36)
[2020-01-31] MEDS: ACETAMINOPHEN TAB 650MG DOSE (2X325MG) PO PRN (08:37)
--- NOTE | 2020-01-31 15:29 | DS.PDOC ---
Discharge Summary General Date of Admission Jan 23, 2020 at 13:44 Date of Discharge 01/31/20 Discharge Summary PROCEDURES PERFORMED DURING STAY: Left hip cemented hemiarthroplasty 01/23/20 DISCHARGE DIAGNOSES: Acute CVA with left hemiparesis Left hip femoral neck fracture Chronic subdural hemorrhage from prior falls. 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 Recurrent falls. Seizure disorder Vit D def Vit B12 def. COMPLICATIONS/CHIEF COMPLAINT: Fracture Of Femoral Neck, Left. 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 She is now s/p left hip cemented hemiarthroplasty on 01/23/20 with acute onset left sided paralysis on 01/25/20 found to have to acute CVA. CVA, acute lacunar infarcts in the posterior right lentiform nucleus extending to the periventricular white matter and right medial frontal lobe. MRI, MRA head above Echocardiogram above Tele no arrhythmia Xarelto, statin. Holding ASA for now. Neurology has evaluated Left hip femoral neck fracture s/p cemented hemiarthroplasty Well healing incision Pain control PRN, PT/OT Chronic subdural hemorrhage likely 2/[address] head: Small low attenuating superior right frontal parietal extra-axial collection most consistent with the chronic subdural hemorrhage. Will keep on AC for now since post op C/w anticoagulation safely. Seizure disorder. Stable used to be on Keppra but patient was not taking at home. not on any meds. History of oligodendrocytoma, status post craniotomy with some mild cognitive dysfunction PT/OT. History of recurrent falls. PT/OT DVT px. Xarelto. DISCHARGE MEDICATIONS: Please see below. ALLERGIES: Please see below. PHYSICAL EXAMINATION ON DISCHARGE: VITAL SIGNS: Please see below. CONSTITUTIONAL: No acute distress, sitting up in bedside chair, AAO x 3 EYES: PERRLA, EOM intact HENT, MOUTH: Normocephalic, atraumatic, moist mucous membranes NECK: SUPPLE, no JVD, no lymphadenopathy, no carotid bruit CV: Regular rate and rhythm, S1S2 normal, no murmurs/rubs/gallops RESPIRATORY: Clear to auscultation bilaterally, no rales/rhonchi/wheezes GI: BS positive in 4 quadrants, soft, nontender, nondistended, no rebound or guarding, no organomegaly : Deferred MUSCULOSKELETAL: Normal ROM. No cyanosis, clubbing, swelling, joint deformity, extremity edema INTEGUMENTARY: Intact, no rashes, no lesions, no erythema NEUROLOGIC: Left upper weakness,0-1/5, cannot rn office hand but can move fingers today. Cannot lift left upper extremity off bed. 0/5 strength for LLE. 4/5 strength in right upper and lower ext. No sensory loss of LLE, LUE. Left side facial droop still on exam. PSYCHIATRIC: Mood and affect are normal LABORATORY DATA: Please see below. IMAGING: CT head 01/28/20: No significant change in size of the evolving acute right posterior limb internal capsule infarction, without hemorrhagic transformation. CT head 01/27/20: Exam redemonstrates hypodensity in the posterior limb of the right internal capsule known to represent an acute lacunar infarct as described on recent MRI report. MRI brain: 01/25/20 2. Acute lacunar infarcts in the posterior right lentiform nucleus extending to the periventricular white matter and right medial frontal lobe. 3. Stable postoperative changes. No new mass is seen. MRA brain: 01/24/30 1. Mild nonocclusive stenoses in the posterior cerebral arteries. 2. Otherwise unremarkable MRA. No other significant stenosis, aneurysm, or vascular occlusion. Echocardiogram: EF 75-80% Sinus tachycardia without intraventricular conduction disturbance. M-mode and two-dimensional echocardiography was performed with pulsed, continuous wave, color flow and tissue Doppler studies. Normal left ventricular size and wall thickness with hyperkinetic wall motion. Normal left atrial size with grade 1 LV diastolic dysfunction, but currently normal estimated mean left atrial pressure. Normal right heart chamber sizes and motion with Doppler evidence of borderline pulmonary hypertension. Normal IVC size and collapse against an elevated central venous pressure. Normal aortic dimensions. Normal-appearing aortic valvular apparatus without functional valvular abnormality. Normal-appearing mitral valvular apparatus and leaflet excursion with no posterior systolic buckling. No apparent insufficiency. Normal appearing tricuspid valve with trace insufficiency. No apparent intracardiac mass or pericardial effusion. ACTIVITY: [As tolerated]. DIET: As per dietary recommendations. DISPOSITION: [facility] D/T Rehab Facility. DISCHARGE INSTRUCTIONS: Follow up with orthopedics. Linda rios pending DISCHARGE CONDITION: [Stable]. TIME SPENT ON DISCHARGE: 35 minutes. Vital Signs/I&Os Vital Signs Date Time Temp Pulse Resp B/P (MAP) Pulse Ox O2 Delivery O2 Flow Rate FiO2 01/31/20 06:00 98.0 64 17 130/63 (85) 94 Room Air I&O- Last 24 Hours up to 6 AM 01/31/20 06:00 Intake Total 300 ml Output Total 0 ml Balance 300 ml Discharge Medications Scheduled Cholecalciferol (Vitamin D3) (Vitamin D3) 1,000 Unit Tablet, 1,000 UNITS PO DAILY, (Reported) Cyanocobalamin (Vitamin B-12) (Vitamin B-12) 1,000 Mcg Tablet, 1,000 MCG PO DAILY, (Reported) Rivaroxaban (Xarelto) 10 Mg Tablet, 10 MG PO DAILY Rivaroxaban (Xarelto) 10 Mg Tablet, 10 MG PO DAILY@18 Rosuvastatin Calcium (Crestor) 20 Mg Tablet, 20 MG PO DAILY, (Reported) Scheduled PRN Oxycodone HCl/Acetaminophen (Percocet 5-325 mg Tablet) 1 Each Tablet, 1 TAB PO Q4H PRN for PAIN Allergies Coded Allergies: codeine (Verified Allergy, Intermediate, hives, 10/27/18) latex (Verified Allergy, Intermediate, hives, 10/27/18) raspberry (Verified Allergy, Intermediate, hives, 10/27/18) REENA GALVAN MD Jan 31, 2020 15:29
== END 2020-01-31 14:50 | DRG 956 ==
LOC: M ED 09:59 → EDBD 09:59 → M ED INP 13:44 → M MS5PR 15:05 → M PCU 01-25 09:32 → M MSPAV 01-29 18:32
PROVIDERS: ADMIT Internal Medicine Nephrology; ATTEND Internal Medicine Nephrology
PROC: 0SRS0J9 Replacement of Left Hip Joint, Femoral Surface with Synthetic Substitute, Cemented, Open Approach (ICD-10-PCS; principal; 2020-01-23 19:00)
DX: S72.002A Fracture of unspecified part of neck of left femur, initial encounter for closed fracture (principal); S06.5X0A Traumatic subdural hemorrhage without loss of consciousness, initial encounter; I63.9 Cerebral infarction, unspecified; I69.352 Hemiplegia and hemiparesis following cerebral infarction affecting left dominant side; I97.821 Postprocedural cerebrovascular infarction following other surgery; D64.9 Anemia, unspecified; E55.9 Vitamin D deficiency, unspecified; E53.8 Deficiency of other specified B group vitamins; R29.6 Repeated falls; G40.909 Epilepsy, unspecified, not intractable, without status epilepticus; K57.30 Diverticulosis of large intestine without perforation or abscess without bleeding; Z79.899 Other long term (current) drug therapy; Z88.5 Allergy status to narcotic agent; Z91.040 Latex allergy status; Z91.018 Allergy to other foods; Z79.82 Long term (current) use of aspirin; E87.6 Hypokalemia; E78.5 Hyperlipidemia, unspecified; M81.0 Age-related osteoporosis without current pathological fracture

== ENCOUNTER 2020-01-24 14:20 | Inpatient (IN) | payer MEDICARE, MEDICAID ==
[~2020-01-24] VITALS: Ht 162.6 cm; Wt 50.2 kg
[~2020-01-24 14:20] MED LIST changes: +CYAN100049 PO; +VITAD1000T PO
[2020-01-24] MEDS ORDERED: PERC5TAB12 PO (15:00)
[2020-01-24] MEDS ORDERED: XARE10TA PO ×2 (15:00→15:04)
[2020-01-29 18:48] VITALS: BP 110/80
[2020-01-31 15:00] VITALS: BP 128/67
[2020-01-31] MEDS: REMEDY PHYTOPLEX Z-GUARD PASTE 113GM TUBE (FROM STOREROOM PRODUCT) TOP SCH ×3 (17:40→21:01)
[2020-01-31] MEDS: guaiFENesin SYRUP 200 MG/10 ML UDC PO SCH ×2 (17:42→21:00)
[2020-01-31] MEDS: D5W/0.9% SODIUM CHLORIDE 1,000 ML IV SCH (17:42)
[2020-01-31] MEDS: MAGIC MOUTHWASH SUSPENSION BTL SSP SCH (17:43)
[2020-01-31] MEDS: RIVAROXABAN 10 MG TAB (XARELTO) PO SCH (17:43)
[2020-01-31] MEDS ORDERED: RIVAROXABAN 20 MG TAB (XARELTO) PO SCH (18:00)
[2020-01-31] MEDS: IPRATROPIUM 0.5MG/ALBUTEROL 2.5MG INH SOL UD 3ML (DUONEB) NEB SCH (19:58)
[2020-01-31 20:59] VITALS: BP 141/73
[2020-01-31] MEDS: DOCUSATE SODIUM 100 MG CAP PO SCH (21:00)
[2020-01-31] MEDS: FLUoxetine 20 MG CAP PO SCH (21:00)
[2020-01-31] MEDS: NYSTATIN 100,000 UNITS/GM TOPICAL PWD 15 GM TOP SCH (21:01)
[2020-01-31] MEDS: SENNA 8.6 MG TAB (SENOKOT) PO SCH (21:01)
[2020-01-31] MEDS: ACETAMINOPHEN TAB 650MG DOSE (2X325MG) PO PRN (21:04)
[2020-02-01] MEDS: D5W/0.9% SODIUM CHLORIDE 1,000 ML IV SCH ×2 (04:03→05:56)
[2020-02-01 05:58] VITALS: BP 136/70
[2020-02-01 07:13] LABS: BASO % 0.5 % (0.0-1.0); EOS # 0.3 10^3/uL (0.0-0.5); EOS % 5.2 % (0.0-3.0); HEMATOCRIT 30.2 % (36.0-47.0); HEMOGLOBIN 9.9 g/dl (12.0-15.5); LYMPH # 1.3 10^3/uL (1.5-5.0); LYMPH % 21.7 % (24.0-44.0); MEAN CORPUSCULAR HEMOGLOBIN 28.6 pg (27.0-33.0); MEAN CORPUSCULAR HGB CONC 32.8 g/dl (32.0-36.5); MEAN CORPUSCULAR VOLUME 87.3 fl (80.0-96.0); MONO # 0.6 10^3/uL (0.0-0.8); MONO % 11.1 % (0.0-5.0); NEUTROPHILS # 3.5 10^3/uL (1.5-8.5); NEUTROPHILS % 60.8 % (36.0-66.0); PLATELET COUNT, AUTOMATED 351 10^3/uL (150-450); RED BLOOD COUNT 3.46 10^6/uL (4.00-5.40); WHITE BLOOD COUNT 5.8 10^3/uL (4.0-10.0)
[2020-02-01] MEDS: IPRATROPIUM 0.5MG/ALBUTEROL 2.5MG INH SOL UD 3ML (DUONEB) NEB SCH ×3 (07:24→18:42)
[2020-02-01 07:42] LABS: ALBUMIN 2.3 GM/DL (3.2-5.2); ALT/SGPT 23 U/L (12-78); BILIRUBIN,TOTAL 0.4 MG/DL (0.2-1.0); BLOOD UREA NITROGEN 13 MG/DL (7-18); CALCIUM LEVEL 8.5 MG/DL (8.8-10.2); CARBON DIOXIDE LEVEL 26 MEQ/L (21-32); CHLORIDE LEVEL 109 MEQ/L (98-107); CREATININE FOR GFR 0.48 MG/DL (0.55-1.30); GLOMERULAR FILTRATION RATE > 60.0 (>45); GLUCOSE, FASTING 109 MG/DL (70-100); POTASSIUM SERUM 3.8 MEQ/L (3.5-5.1); SODIUM LEVEL 142 MEQ/L (136-145); TOTAL PROTEIN 5.8 GM/DL (6.4-8.2)
[2020-02-01] MEDS: LANSOPRAZOLE SUSPENSION 30 MG/10 ML ORAL SYRINGE (FIRST-LANSOPRAZOLE) PO SCH (09:16)
[2020-02-01] MEDS: CYANOCOBALAMIN 500 MCG TAB PO SCH (09:16)
[2020-02-01] MEDS: MAGIC MOUTHWASH SUSPENSION BTL SSP SCH ×2 (09:16→14:28)
[2020-02-01] MEDS: guaiFENesin SYRUP 200 MG/10 ML UDC PO SCH ×3 (09:16→21:18)
[2020-02-01] MEDS: ROSUVASTATIN 10 MG TAB (CRESTOR) PO SCH (09:16)
[2020-02-01] MEDS: DOCUSATE SODIUM 100 MG CAP PO SCH ×2 (09:16→21:00)
[2020-02-01] MEDS: VITAMIN D 1,000 INTERNATIONAL UNITS TABLET PO SCH (09:16)
[2020-02-01] MEDS: NYSTATIN 100,000 UNITS/GM TOPICAL PWD 15 GM TOP SCH ×2 (09:17→21:20)
[2020-02-01] MEDS: REMEDY PHYTOPLEX Z-GUARD PASTE 113GM TUBE (FROM STOREROOM PRODUCT) TOP SCH ×3 (09:17→21:18)
[2020-02-01] MEDS ORDERED: VARIBAR PUDDING 40% w/v 230ML TUBE As Ordered ONE (12:13)
[2020-02-01] MEDS ORDERED: E-Z-PAQUE 96% w/w SUSP 176GM BTL As Ordered ONE (12:14)
[2020-02-01] MEDS ORDERED: VARIBAR NECTAR 40% w/v 240ML SUSP BTL As Ordered ONE (12:14)
--- NOTE | 2020-02-01 13:35 | HPEPDOC ---
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 On 01-25-20 she was found to have new weakness in her left side with CTH showing, "Small new low attenuating superior right frontal parietal extra-axial collection most consistent with the chronic subdural hemorrhage" and follow-up MRI showed, "Acute lacunar infarcts in the po sterior right lentiform nucleus extending to the periventricular white matter and right medial frontal lobe." She was seen by neurology who recommended continuation of XArelto for DVT prophylaxis after which patient was to be transitioned to aspirin for secondary stroke prevention. She was followed closely by SPORTS PHYSICAL THERAPIST for new onset dysphagia and maintained on a puree and nectar diet, noted to hav severe impairments below her prior level of function and deemed medically appropriate for discharge to ARU on 01-31-20. REVIEW OF SYSTEMS: The following is a completed review of systems and has been reviewed. Review of systems otherwise unremarkable. PAIN: Patient self reports no pain EYES: No recent vision changes EARS, NOSE, & THROAT:+ dysphagia CARDIOVASCULAR: Denies chest pain or palpitations PULMONARY: Denies shortness of breath, +cough GASTROINTESTINAL: Denies constipation/diarrhea GENITOURINARY: +incontinence and dysuria MUSCULOSKELETAL: left hip fracture NEUROLOGICAL:left sided paresis HEMATOLOGICAL: denies easy bruising SKIN: buttock rash PSYCHIATRIC: Unremarkable All other review of systems found to be negative. PAST MEDICAL HISTORY: as per HPI PAST SURGICAL HISTORY: as per HPI, x3, ex-lap, hernia repair ALLERGIES: Please see below. MEDICATIONS: Please see below. FAMILY HISTORY: cancer, cardiac SOCIAL HISTORY: +smoker, no etoh/illicit drugs DIET: NPO (until MBS completed 02-01-20) PHYSICAL EXAMINATION: VITAL SIGNS: Please see below. GENERAL: Pleasant and cooperative. No acute distress. HEENT: PERRL. Extraocular movements intact. Clear conjunctiva CARDIOVASCULAR: Regular rate and rhythm. No murmurs, rubs, or gallops LUNGS: Clear to auscultation bilaterally. No wheezes. No rhonchi ABDOMEN: Soft, nontender, nondistended. Positive bowel sounds. Normal active bowel sounds NEUROLOGICAL: Alert and oriented times three. Cranial nerves II through XII grossly intact. Sensation grossly diminihsed to loight touch left UE and LE with extinction to touch EXTREMITIES: 5\\5 strength right upper extremity, 1/5 LUE. 5\\5 strength right lower extremity. 1/5 strength in left hip flexors, knee extensor, 0/5 ankle DF and EHL SKIN: sacrum with blanchable erythema LABORATORY DATA: Please see below. IMAGING:[Imaging documentation personally reviewed by record]. FUNCTIONAL STATUS: Premorbid: Modified Independent with all activities of daily life as well as mobility On Admission: Maximum- Total assistance for bathing, upper body dressing, bed chair and wheelchair transfers, toilet transfers, ambulation. GOALS: Elizabeth-I from wheelchair level for mobility and functional transfers, contact guard for upper body dressing, min assist for lower body dressing, supervision for toileting ASSESSMENT:64-year-old F with past medical history of brain tumor who presents status post left hip fracture and acute stroke with left sided paresis PLAN: 1. rehab- pt/ot advance mobility and ADLs, strengthen/stretch/maintain ROM all 4 limbs -SPORTS PHYSICAL THERAPIST patient with dysphagia, MBS ordered for tomorrow, will make NPO for now as patient coughing on today's SPORTS PHYSICAL THERAPIST eval 2. 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 Ortho- s/p left hip fratcure with hemia-arthroplasty- posterior hip precautions, f/u ortho (consulted) 4. Cardiac- recent echo showing chronic grade 1 diastolic CHF, daily weights, will avoid fluid restriction given dysphagia, monitor for fluid overload - HLD- statin 5. Resp- current smoker, will start duonebs and guaifenasin, monitor for infection 6. DVT ppx- xarelto 7. GI ppx- lanzaprazole 8. Pain- tylneol prn 9. Dispo- tbd POST ADMISSION PHYSICIAN EVALUATION: Medical and functional status: Description of medical status, medical assessment: As above. Rehabilitation diagnosis and current and prior cold morbid medical conditions as above. Risk of complications and plans to mitigate them as above. Description of functional status current status is as above. Prior status as above. Status compared to preadmission: There are no clinically significant differences between the patient's current status and the information described on the preadm ission screening document. Treatment plan anticipated: Treatment plan is as described above. Required disciplines including physical therapy, occupational therapy, others as noted above Intensity of services: 3 hours a day, 6 days a week. Special considerations: There are no specific special or safety considerations that would likely preclude immediate implementation of an intensive rehabilitation program or subsequently influence the plan of care ATTESTATION: Considering all the information above, it is my best judgment that this patient requires intensive rehabilitation therapy as described above and an inpatient hospital environment due to the complexity of nursing, medical, and rehabilitation needs required by the patient. Furthermore, this patient can reasonably be expected to participate in an benefit from an inpatient rehabilitation stay with an interdisciplinary team approach to the delivery of rehabilitation care under the direction and supervision of rehabilitation physician. PROGNOSIS: good ESTIMATED LENGTH OF STAY: 24-28 days. PROJECTED DISCHARGE DESTINATION: Home with family support and any durable medical equipment required to increase functional safety and mobility TIME SPENT COUNSELING AND COORDINATING INITIAL CARE: Greater than 70 minutes. Vital Signs Vital Sign - Last 24 Hours 01/31/20 01/31/20 02/01/20 15:00 20:59 05:58 Temp 97.4 97.7 97.6 Pulse 81 84 85 Resp 17 18 18 B/P (MAP) 128/67 (87) 141/73 (95) 136/70 (92) Pulse Ox 97 98 98 O2 Delivery Room Air Room Air Room Air Laboratory Data CBC/BMP Laboratory Tests 02/01/20 06:46 Labs 24H Laboratory Tests 2 02/01/20 05:54: Urine Color YELLOW, Urine Appearance TURBIDH, Urine pH 8.0, Urine Specific [place] 1.009, Urine Protein NEGATIVE, Urine Glucose (UA) NEGATIVE, Urine Ketones NEGATIVE, Urine Blood 1+H, Urine Nitrite NEGATIVE, Urine Bilirubin NEGATIVE, Urine Urobilinogen 0.2, Urine Leukocyte Esterase 2+H, Urine WBC (Auto) TNTCH, Urine RBC (Auto) 40H, Urine Hyaline Casts (Auto) 0, Urine Bacteria (Auto) NEGATIVE, Urine Squamous Epithelial Cells 3, Urine Amorphous Sediment LARGEH, Urine Mucus (Auto) MODERATE, Urine Sperm (Auto) 02/01/20 06:46: Immature Granulocyte % (Auto) 0.7, Neutrophils (%) (Auto) 60.8, Lymphocytes (%) (Auto) 21.7L, Monocytes (%) (Auto) 11.1H, Eosinophils (%) (Auto) 5.2H, Basophils (%) (Auto) 0.5, Neutrophils # (Auto) 3.5, Lymphocytes # (Auto) 1.3L, Monocytes # (Auto) 0.6, Eosinophils # (Auto) 0.3, Basophils # (Auto) 0.0, Nucleated Red Blood Cells % (auto) 0.0, Anion Gap 7L, Glomerular Filtration Rate > 60.0, Calcium Level 8.5L, Total Bilirubin 0.4, Aspartate Amino Transf (AST/SGOT) 20, Alanine Aminotransferase (ALT/SGPT) 23, Alkaline Phosphatase 131H, Total Protein 5.8L, Albumin 2.3L, Albumin/Globulin Ratio 0.7L Microbiology Microbiology 02/01/20 Urine Culture, Received Pending Home Medications Scheduled Cholecalciferol (Vitamin D3) (Vitamin D3) 1,000 Unit Tablet, 1,000 UNITS PO DAILY, (Reported) Cyanocobalamin (Vitamin B-12) (Vitamin B-12) 1,000 Mcg Tablet, 1,000 MCG PO DAILY, (Reported) Rivaroxaban (Xarelto) 10 Mg Tablet, 10 MG PO DAILY Rivaroxaban (Xarelto) 10 Mg Tablet, 10 MG PO DAILY@18 Rosuvastatin Calcium (Crestor) 20 Mg Tablet, 20 MG PO DAILY, (Reported) Scheduled PRN Oxycodone HCl/Acetaminophen (Percocet 5-325 mg Tablet) 1 Each Tablet, 1 TAB PO Q4H PRN for PAIN Allergies Coded Allergies: codeine (Verified Allergy, Intermediate, hives, 10/27/18) latex (Verified Allergy, Intermediate, hives, 10/27/18) raspberry (Verified Allergy, Intermediate, hives, 10/27/18) A-FIB/CHADSVASC A-FIB History Current/History of A-Fib/PAF?: No IRMA MONROY MD Feb 01, 2020 13:35
[2020-02-01 14:00] VITALS: BP 143/70
--- NOTE | 2020-02-01 16:05 | IPNPDOC ---
Text Note Date of Service The patient was seen on 02/01/20. NOTE SUBJECTIVE: Patient does not offer any complaints this morning. Dense hemiple sean on the left. there is left foot drop, Head tends to be turned to the right. Had cookie swallow done today. Patient denies chest pain, n/v/d, shortness of breath, palpitations. VS have been stable. PHYSICAL EXAMINATION: VITAL SIGNS: Please see below CONSTITUTIONAL: No acute distress, laying in bed, awake and alert. EYES: PERRLA, EOM intact HENT, MOUTH: Normocephalic, atraumatic, moist mucous membranes NECK: SUPPLE, no JVD, no lymphadenopathy, no carotid bruit CV: Regular rate and rhythm, S1S2 normal, no murmurs/rubs/gallops RESPIRATORY: Clear to auscultation bilaterally, no rales/rhonchi/wheezes GI: BS positive in 4 quadrants, soft, nontender, nondistended, no rebound or guarding, no organomegaly MUSCULOSKELETAL: Normal ROM. No cyanosis, clubbing, swelling, joint deformity, extremity edema INTEGUMENTARY: Intact, no rashes, no lesions, no erythema NEUROLOGIC: Left upper weakness,1/5, cannot coding compliance specialist hand but can move fingers today. can move toes 1/5 strength for LLE. 4/5 strength in right upper and lower ext. No sensory loss of LLE, LUE. Left side facial droop still on exam. left foot drop. 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 CT head 01/27/20: Exam redemonstrates hypodensity in the posterior limb of the right internal capsule known to represent an acute lacunar infarct as described on recent MRI report. MRI brain: 01/25/20 2. Acute lacunar infarcts in the posterior right lentiform nucleus extending to the periventricular white matter and right medial frontal lobe. 3. Stable postoperative changes. No new mass is seen. MRA brain: 01/24/30 1. Mild nonocclusive stenoses in the posterior cerebral arteries. 2. Otherwise unremarkable MRA. No other significant stenosis, aneurysm, or vascular occlusion. Echocardiogram: EF 75-80% Sinus tachycardia without intraventricular conduction disturbance. M-mode and two-dimensional echocardiography was performed with pulsed, cont inuous wave, color flow and tissue Doppler studies. Normal left ventricular size and wall thickness with hyperkinetic wall motion. Normal left atrial size with grade 1 LV diastolic dysfunction, but currently normal estimated mean left atrial pressure. Normal right heart chamber sizes and motion with Doppler evidence of borderline pulmonary hypertension. Normal IVC size and collapse against an elevated central venous pressure. Normal aortic dimensions. Normal-appearing aortic valvular apparatus without functional valvular abnormality. Normal-appearing mitral valvular apparatus and leaflet excursion with no posterior systolic buckling. No apparent insufficiency. Normal appearing tricuspid valve with trace insufficiency. No apparent intracardiac mass or pericardial effusion. 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 She is now s/p left hip cemented hemiarthroplasty on 01/23/20 with acute onset left sided paralysis on 01/25/20 found to have to acute CVA. CVA, acute lacunar infarcts in the posterior right lentiform nucleus extending to the periventricular white matter and right medial frontal lobe. -MRI, MRA head above -Echocardiogram above -Xarelto, statin. Holding ASA for now as patient is on AC after surgery -Neurology has evaluated -left foot drop will need float boots. -dysphagia, had cookie swallow , dietary recommendations pureed diet, thin liquids , crushed pills. Left femoral neck fracture s/p cemented hemiarthroplasty -Well healing incision -Pain control tramadol PRN, PT/OT - follow up Ortho in 2 weeks after surgery Chronic subdural hemorrhage likely 2/2 to prior falls. -CT head: Small low attenuating superior right frontal parietal extra-axial collection most consistent with the chronic subdural hemorrhage. in crease in size with anticoagulation. -Will keep on AC for now since post op -C/w anticoagulation safely. Seizure disorder. -Stable -used to be on Keppra but patient was not taking at home. -not on any meds now. History of oligodendrocytoma, status post craniotomy with some mild cognitive dysfunction -PT/OT. History of recurrent falls. -PT/OT DVT px. Xarelto. VS,Fishbone, I+O VS, Fishbone, I+O Laboratory Tests 02/01/20 06:46 Vital Signs Date Time Temp Pulse Resp B/P (MAP) Pulse Ox O2 Delivery O2 Flow Rate FiO2 02/01/20 14:00 97.4 74 18 143/70 (94) 96 Room Air I&O- Last 24 Hours up to 6 AM 02/01/20 06:00 Intake Total 842 ml Balance 842 ml REENA GALVAN MD Feb 01, 2020 16:05
[2020-02-01] MEDS: RIVAROXABAN 10 MG TAB (XARELTO) PO SCH (17:35)
[2020-02-01] MEDS: ACETAMINOPHEN TAB 650MG DOSE (2X325MG) PO PRN ×2 (17:35→21:18)
[2020-02-01 19:34] VITALS: BP 150/70
[2020-02-01] MEDS: SENNA 8.6 MG TAB (SENOKOT) PO SCH (21:00)
[2020-02-01] MEDS: FLUoxetine 20 MG CAP PO SCH (21:18)
[2020-02-02 06:23] VITALS: BP 123/62
[2020-02-02] MEDS: IPRATROPIUM 0.5MG/ALBUTEROL 2.5MG INH SOL UD 3ML (DUONEB) NEB SCH ×3 (07:18→19:44)
[2020-02-02] MEDS: CYANOCOBALAMIN 500 MCG TAB PO SCH (07:50)
[2020-02-02] MEDS: guaiFENesin SYRUP 200 MG/10 ML UDC PO SCH ×3 (07:50→21:25)
[2020-02-02] MEDS: DOCUSATE SODIUM 100 MG CAP PO SCH (07:50)
[2020-02-02] MEDS: VITAMIN D 1,000 INTERNATIONAL UNITS TABLET PO SCH (07:51)
[2020-02-02] MEDS: ACETAMINOPHEN TAB 650MG DOSE (2X325MG) PO PRN ×3 (07:51→21:25)
[2020-02-02] MEDS: ROSUVASTATIN 10 MG TAB (CRESTOR) PO SCH (07:51)
[2020-02-02] MEDS: LANSOPRAZOLE SUSPENSION 30 MG/10 ML ORAL SYRINGE (FIRST-LANSOPRAZOLE) PO SCH (07:52)
[2020-02-02] MEDS: NYSTATIN 100,000 UNITS/GM TOPICAL PWD 15 GM TOP SCH ×2 (07:52→21:26)
[2020-02-02] MEDS: REMEDY PHYTOPLEX Z-GUARD PASTE 113GM TUBE (FROM STOREROOM PRODUCT) TOP SCH ×3 (07:52→21:27)
[2020-02-02] MEDS: NICOTINE 21MG/24HR 1 EA TRANSDERMAL TD SCH (13:19)
[2020-02-02 14:00] VITALS: BP 130/69
[2020-02-02] MEDS: RIVAROXABAN 10 MG TAB (XARELTO) PO SCH (18:25)
[2020-02-02 20:30] VITALS: BP 134/64
[2020-02-02] MEDS: SENNA 8.6 MG TAB (SENOKOT) PO SCH (21:25)
[2020-02-02] MEDS: DOCUSATE SOD LIQ 100MG/10ML UDC PO SCH (21:25)
[2020-02-02] MEDS: FLUoxetine 20 MG CAP PO SCH (21:26)
[2020-02-03 05:56] VITALS: BP 134/64
[2020-02-03] MEDS: IPRATROPIUM 0.5MG/ALBUTEROL 2.5MG INH SOL UD 3ML (DUONEB) NEB SCH ×3 (07:28→20:00)
[2020-02-03] MEDS: NICOTINE 21MG/24HR 1 EA TRANSDERMAL TD SCH (08:56)
[2020-02-03] MEDS: DOCUSATE SOD LIQ 100MG/10ML UDC PO SCH ×2 (09:13→21:00)
[2020-02-03] MEDS: CYANOCOBALAMIN 500 MCG TAB PO SCH (09:13)
[2020-02-03] MEDS: VITAMIN D 1,000 INTERNATIONAL UNITS TABLET PO SCH (09:13)
[2020-02-03] MEDS: ROSUVASTATIN 10 MG TAB (CRESTOR) PO SCH (09:13)
[2020-02-03] MEDS: LANSOPRAZOLE SUSPENSION 30 MG/10 ML ORAL SYRINGE (FIRST-LANSOPRAZOLE) PO SCH (09:13)
[2020-02-03] MEDS: guaiFENesin SYRUP 200 MG/10 ML UDC PO SCH ×3 (09:13→21:30)
[2020-02-03] MEDS: NYSTATIN 100,000 UNITS/GM TOPICAL PWD 15 GM TOP SCH ×2 (09:23→21:30)
[2020-02-03] MEDS: REMEDY PHYTOPLEX Z-GUARD PASTE 113GM TUBE (FROM STOREROOM PRODUCT) TOP SCH ×3 (09:24→21:31)
[2020-02-03 14:00] VITALS: BP 126/64
[2020-02-03] MEDS: RIVAROXABAN 10 MG TAB (XARELTO) PO SCH (17:00)
[2020-02-03 20:00] VITALS: BP 131/72
[2020-02-03] MEDS: SENNA 8.6 MG TAB (SENOKOT) PO SCH (21:30)
[2020-02-03] MEDS: FLUoxetine 20 MG CAP PO SCH (21:30)
[2020-02-04 05:51] VITALS: BP 136/68
[2020-02-04] MEDS: IPRATROPIUM 0.5MG/ALBUTEROL 2.5MG INH SOL UD 3ML (DUONEB) NEB SCH ×3 (07:33→18:22)
[2020-02-04] MEDS: DOCUSATE SOD LIQ 100MG/10ML UDC PO SCH ×2 (09:00→20:07)
[2020-02-04] MEDS: ROSUVASTATIN 10 MG TAB (CRESTOR) PO SCH (09:28)
[2020-02-04] MEDS: VITAMIN D 1,000 INTERNATIONAL UNITS TABLET PO SCH (09:28)
[2020-02-04] MEDS: LANSOPRAZOLE SUSPENSION 30 MG/10 ML ORAL SYRINGE (FIRST-LANSOPRAZOLE) PO SCH (09:28)
[2020-02-04] MEDS: guaiFENesin SYRUP 200 MG/10 ML UDC PO SCH ×3 (09:28→20:07)
[2020-02-04] MEDS: CYANOCOBALAMIN 500 MCG TAB PO SCH (09:28)
[2020-02-04] MEDS: CEFDINIR 300 MG CAP (OMNICEF) PO SCH ×2 (09:28→20:06)
[2020-02-04] MEDS: REMEDY PHYTOPLEX Z-GUARD PASTE 113GM TUBE (FROM STOREROOM PRODUCT) TOP SCH ×3 (09:29→20:06)
[2020-02-04] MEDS: NYSTATIN 100,000 UNITS/GM TOPICAL PWD 15 GM TOP SCH ×2 (09:29→20:07)
[2020-02-04] MEDS: NICOTINE 21MG/24HR 1 EA TRANSDERMAL TD SCH (09:36)
[2020-02-04 09:55] LABS: HEMATOCRIT 28.1 % (36.0-47.0); HEMOGLOBIN 9.4 g/dl (12.0-15.5); MEAN CORPUSCULAR HEMOGLOBIN 28.8 pg (27.0-33.0); MEAN CORPUSCULAR HGB CONC 33.5 g/dl (32.0-36.5); MEAN CORPUSCULAR VOLUME 86.2 fl (80.0-96.0); PLATELET COUNT, AUTOMATED 371 10^3/uL (150-450); RED BLOOD COUNT 3.26 10^6/uL (4.00-5.40); WHITE BLOOD COUNT 6.2 10^3/uL (4.0-10.0)
[2020-02-04 10:19] LABS: BLOOD UREA NITROGEN 14 MG/DL (7-18); CALCIUM LEVEL 8.6 MG/DL (8.8-10.2); CARBON DIOXIDE LEVEL 26 MEQ/L (21-32); CHLORIDE LEVEL 107 MEQ/L (98-107); CREATININE FOR GFR 0.48 MG/DL (0.55-1.30); GLOMERULAR FILTRATION RATE > 60.0 (>45); GLUCOSE, FASTING 87 MG/DL (70-100); POTASSIUM SERUM 3.8 MEQ/L (3.5-5.1); SODIUM LEVEL 141 MEQ/L (136-145)
[2020-02-04 14:00] VITALS: BP 123/65
[2020-02-04] MEDS: ACETAMINOPHEN TAB 650MG DOSE (2X325MG) PO PRN ×2 (14:31→20:06)
[2020-02-04] MEDS: RIVAROXABAN 10 MG TAB (XARELTO) PO SCH (17:29)
[2020-02-04 20:00] VITALS: BP 147/71
[2020-02-04] MEDS: FLUoxetine 20 MG CAP PO SCH (20:06)
[2020-02-04] MEDS: SENNA 8.6 MG TAB (SENOKOT) PO SCH (20:07)
--- NOTE | 2020-02-04 23:45 | REP ---
Examination Requested: Cookie Swallow Reason For Exam: Dysphasia The procedure was performed by NAOMI Weaver, under the direct supervision of Dr. Stevenson. The procedure was performed with Iliana Schmitz from speech pathology present. 5 ml aliquots of thin, pudding, nectar and crushed pill consistency barium was administered. Flash penetration was visualized with thin consistency barium. The detailed report of this examination will be provided by speech pathology. 1.5 minutes of fluoroscopy time was utilized for this procedure. Reviewed by NAOMI Barber 02/01/2020 01:47 P Electronically Signed by Juvenal Stevenson MD 02/04/2020 11:36 P
[2020-02-05 06:00] VITALS: BP 146/70
[2020-02-05] MEDS: IPRATROPIUM 0.5MG/ALBUTEROL 2.5MG INH SOL UD 3ML (DUONEB) NEB SCH ×3 (07:53→20:00)
[2020-02-05] MEDS: guaiFENesin SYRUP 200 MG/10 ML UDC PO SCH ×3 (08:52→22:10)
[2020-02-05] MEDS: DOCUSATE SOD LIQ 100MG/10ML UDC PO SCH ×3 (08:52→22:11)
[2020-02-05] MEDS: CEFDINIR 300 MG CAP (OMNICEF) PO SCH ×2 (08:53→22:07)
[2020-02-05] MEDS: ROSUVASTATIN 10 MG TAB (CRESTOR) PO SCH (08:53)
[2020-02-05] MEDS: CYANOCOBALAMIN 500 MCG TAB PO SCH (08:53)
[2020-02-05] MEDS: LANSOPRAZOLE SUSPENSION 30 MG/10 ML ORAL SYRINGE (FIRST-LANSOPRAZOLE) PO SCH (08:53)
[2020-02-05] MEDS: NICOTINE 21MG/24HR 1 EA TRANSDERMAL TD SCH (08:53)
[2020-02-05] MEDS: VITAMIN D 1,000 INTERNATIONAL UNITS TABLET PO SCH (08:53)
[2020-02-05] MEDS: NYSTATIN 100,000 UNITS/GM TOPICAL PWD 15 GM TOP SCH ×2 (08:54→22:05)
[2020-02-05] MEDS: REMEDY PHYTOPLEX Z-GUARD PASTE 113GM TUBE (FROM STOREROOM PRODUCT) TOP SCH ×3 (08:54→22:05)
--- NOTE | 2020-02-05 10:34 | IPNPDOC ---
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 She otherwise thinks her left arm is getting stronger and wants to eat more solid food. REVIEW OF SYSTEMS: The following is a completed review of systems and has been reviewed. Review of systems otherwise unremarkable. PAIN: Patient self reports no pain EYES: No recent vision changes EARS, NOSE, & THROAT:+ dysphagia CARDIOVASCULAR: Denies chest pain or palpitations PULMONARY: Denies shortness of breath, +cough(improving) GASTROINTESTINAL: Denies constipation/diarrhea GENITOURINARY: +incontinence and dysuria MUSCULOSKELETAL: left hip fracture NEUROLOGICAL:left sided paresis HEMATOLOGICAL: denies easy bruising SKIN: buttock rash PSYCHIATRIC: Unremarkable All other review of systems found to be negative. PHYSICAL EXAMINATION: VITAL SIGNS: Please see below. GENERAL: Pleasant and cooperative. No acute distress. HEENT: PERRL. Extraocular movements intact. Clear conjunctiva CARDIOVASCULAR: Regular rate and rhythm. No murmurs, rubs, or gallops LUNGS: Clear to auscultation bilaterally. No wheezes. No rhonchi ABDOMEN: Soft, nontender, nondistended. Positive bowel sounds. Normal active bowel sounds NEUROLOGICAL: Alert and oriented times three. Cranial nerves II through XII grossly intact. Sensation grossly diminished to light touch left UE and LE with extinction to touch EXTREMITIES: 5\5 strength right upper extremity, 2/5 LUE. 5\5 strength right lower extremity. 1/5 strength in left hip flexors, knee extensor, 0/5 ankle DF and EHL SKIN: sacrum with blanchable erythema, left posterior upper thigh with two lacerations, left hip incision with dermabond c/d/i back without erythema ASSESSMENT:64-year-old F with past medical history of brain tumor who presents status post left hip fracture and acute stroke with left sided paresis PLAN: 1. rehab- pt/ot advance mobility and ADLs, strengthen/stretch/maintain ROM all 4 limbs -[employer] patient with dysphagia currently on puree and thins 2. 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 Ortho- s/p left hip fracture with hemia-arthroplasty- posterior hip precautions, f/u ortho (consulted) 4. Cardiac- recent echo showing chronic grade 1 diastolic CHF, daily weights, will avoid fluid restriction given dysphagia, monitor for fluid overload - HLD- statin 5. Resp- current smoker, c/u duonebs and guaifenasin, monitor for infection -nicotine patch 6. DVT ppx- xarelto 7. GI ppx- lanzaprazole 8. Pain- tylneol prn 9. Dispo- tbd Allergies Coded Allergies: codeine (Verified Allergy, Intermediate, hives, 10/27/18) latex (Verified Allergy, Intermediate, hives, 10/27/18) raspberry (Verified Allergy, Intermediate, hives, 10/27/18) Vital Signs Vital Signs Date Time Temp Pulse Resp B/P (MAP) Pulse Ox O2 Delivery O2 Flow Rate FiO2 02/05/20 06:00 98.2 84 18 146/70 (95) 96 Room Air Microbiology Microbiology 02/01/20 Urine Culture - Final, Complete Proteus Mirabilis Current Medications Current Medications Current Medications Medications (Trade) Dose Ordered Sig/Hanny Route PRN Reason Start Time Stop Time Status Last Admin Dose Admin Acetaminophen (Tylenol Tab) 650 mg Q4HP PRN PO fever/ MILD PAIN (PS 1-4) 01/31/20 13:30 02/04/20 20:06 Albuterol/ Ipratropium (Duoneb (Ipr 0.5mg/Alb 2.5mg)) 3 ml RTID NEB 01/31/20 20:00 01/31/20 19:58 Cefdinir (Omnicef) 300 mg BID PO 02/04/20 09:00 02/05/20 08:53 Cyanocobalamin (Vitamin B12) 1,000 mcg DAILY PO 02/01/20 09:00 02/05/20 08:53 Dextrose/Sodium Chloride 1,000 ml @ 75 mls/hr [id number] IV 01/31/20 14:43 02/01/20 15:39 DC 02/01/20 05:56 Docusate Sodium (Colace Liquid) 100 mg BID PO 02/02/20 21:00 02/05/20 08:52 Docusate Sodium (Colace) 100 mg BID PO 01/31/20 21:00 02/02/20 11:55 DC 02/02/20 07:50 Fluoxetine HCl (PROzac) 20 mg QHS PO 01/31/20 21:00 02/04/20 20:06 Guaifenesin (Robitussin) 10 ml TID PO 01/31/20 16:00 02/05/20 08:52 Lansoprazole (First-Lansoprazole Oral Suspension) 30 mg DAILY PO 02/01/20 09:00 02/05/20 08:53 Lidocaine/ Diphenhydr/Alum/ Mg/Simeth (Magic Mouthwash) 5ML AC SSP 01/31/20 17:30 02/01/20 15:39 DC 02/01/20 14:28 Nicotine (Nicoderm Cq 21mg) 1 patch DAILY TD 02/02/20 09:00 02/05/20 08:53 Nystatin (Mycostatin Powder, Nystop) 1 dose BID TOP 01/31/20 21:00 02/05/20 08:54 Rivaroxaban (Xarelto) 10 mg DAILY@1800 PO 01/31/20 18:00 02/04/20 17:29 Rivaroxaban (Xarelto) 20 mg DAILY@1800 PO 01/31/20 18:00 01/31/20 16:29 DC Rosuvastatin Calcium (Crestor) 20 mg DAILY PO 02/01/20 09:00 02/05/20 08:53 Senna (Senokot) 1 tab QHS PO 01/31/20 21:00 02/03/20 21:30 Vitamin D (Vitamin D) 1,000 units DAILY PO 02/01/20 09:00 02/05/20 08:53 IRMA MONROY MD Feb 05, 2020 10:34
[2020-02-05] MEDS: LACTOBACILLUS ACIDOPHILUS CAP (BACID) PO SCH ×3 (11:10→22:09)
[2020-02-05 11:31] LABS: BASO # 0.1 10^3/uL (0.0-0.2); BASO % 0.7 % (0.0-1.0); EOS # 0.4 10^3/uL (0.0-0.5); EOS % 4.8 % (0.0-3.0); HEMATOCRIT 32.6 % (36.0-47.0); HEMOGLOBIN 10.6 g/dl (12.0-15.5); LYMPH # 1.3 10^3/uL (1.5-5.0); LYMPH % 17.2 % (24.0-44.0); MEAN CORPUSCULAR HEMOGLOBIN 28.6 pg (27.0-33.0); MEAN CORPUSCULAR HGB CONC 32.5 g/dl (32.0-36.5); MEAN CORPUSCULAR VOLUME 87.9 fl (80.0-96.0); MONO # 0.6 10^3/uL (0.0-0.8); MONO % 7.5 % (0.0-5.0); NEUTROPHILS # 5.1 10^3/uL (1.5-8.5); NEUTROPHILS % 69.1 % (36.0-66.0); PLATELET COUNT, AUTOMATED 438 10^3/uL (150-450); RED BLOOD COUNT 3.71 10^6/uL (4.00-5.40); WHITE BLOOD COUNT 7.3 10^3/uL (4.0-10.0)
[2020-02-05 11:58] LABS: BLOOD UREA NITROGEN 12 MG/DL (7-18); CALCIUM LEVEL 8.8 MG/DL (8.8-10.2); CARBON DIOXIDE LEVEL 27 MEQ/L (21-32); CHLORIDE LEVEL 106 MEQ/L (98-107); CREATININE FOR GFR 0.58 MG/DL (0.55-1.30); GLOMERULAR FILTRATION RATE > 60.0 (>45); GLUCOSE, FASTING 105 MG/DL (70-100); POTASSIUM SERUM 4.2 MEQ/L (3.5-5.1); SODIUM LEVEL 140 MEQ/L (136-145)
[2020-02-05 14:00] VITALS: BP 116/65
[2020-02-05] MEDS: RIVAROXABAN 10 MG TAB (XARELTO) PO SCH (17:09)
[2020-02-05] MEDS: HYDROCORTISONE 1% CREAM 30 GM TOP SCH ×2 (17:10→22:05)
[2020-02-05 20:12] VITALS: BP 144/75
[2020-02-05] MEDS ORDERED: ANUSOL HC CREAM 30GM TOP SCH (21:00)
[2020-02-05] MEDS: SENNA 8.6 MG TAB (SENOKOT) PO SCH ×2 (22:07→22:13)
[2020-02-05] MEDS: FLUoxetine 20 MG CAP PO SCH (22:07)
[2020-02-05] MEDS: ACETAMINOPHEN TAB 650MG DOSE (2X325MG) PO PRN (22:23)
[2020-02-06 05:27] VITALS: BP 121/62
[2020-02-06] MEDS: DOCUSATE SOD LIQ 100MG/10ML UDC PO SCH ×2 (09:00→21:00)
[2020-02-06] MEDS: guaiFENesin SYRUP 200 MG/10 ML UDC PO SCH ×3 (09:00→21:00)
[2020-02-06] MEDS: LANSOPRAZOLE SUSPENSION 30 MG/10 ML ORAL SYRINGE (FIRST-LANSOPRAZOLE) PO SCH (09:54)
[2020-02-06] MEDS: LACTOBACILLUS ACIDOPHILUS CAP (BACID) PO SCH ×3 (09:55→21:26)
[2020-02-06] MEDS: CEFDINIR 300 MG CAP (OMNICEF) PO SCH ×2 (09:55→21:26)
[2020-02-06] MEDS: NICOTINE 21MG/24HR 1 EA TRANSDERMAL TD SCH (09:55)
[2020-02-06] MEDS: VITAMIN D 1,000 INTERNATIONAL UNITS TABLET PO SCH (09:55)
[2020-02-06] MEDS: CYANOCOBALAMIN 500 MCG TAB PO SCH (09:55)
[2020-02-06] MEDS: ROSUVASTATIN 10 MG TAB (CRESTOR) PO SCH (09:55)
[2020-02-06] MEDS: HYDROCORTISONE 1% CREAM 30 GM TOP SCH ×2 (09:57→21:25)
[2020-02-06] MEDS: REMEDY PHYTOPLEX Z-GUARD PASTE 113GM TUBE (FROM STOREROOM PRODUCT) TOP SCH ×3 (09:58→21:26)
[2020-02-06] MEDS: NYSTATIN 100,000 UNITS/GM TOPICAL PWD 15 GM TOP SCH ×2 (09:58→21:26)
[2020-02-06] MEDS: IPRATROPIUM 0.5MG/ALBUTEROL 2.5MG INH SOL UD 3ML (DUONEB) NEB SCH ×3 (12:10→18:16)
[2020-02-06] MEDS: RIVAROXABAN 10 MG TAB (XARELTO) PO SCH (17:35)
--- NOTE | 2020-02-06 18:11 | IPNPDOC ---
PM&R Progress Note DATE OF SERVICE: Feb 06, 2020 Fruit Peeler Progress Note Subjective: Patient states her left shoulder is bothering her but otherwise feels well. REVIEW OF SYSTEMS: The following is a completed review of systems and has been reviewed. Review of systems otherwise unremarkable. PAIN: Patient self reports no pain EYES: No recent vision changes EARS, NOSE, & THROAT:+ dysphagia CARDIOVASCULAR: Denies chest pain or palpitations PULMONARY: Denies shortness of breath, +cough(improving) GASTROINTESTINAL: Denies constipation/diarrhea GENITOURINARY: +incontinence MUSCULOSKELETAL: left hip fracture NEUROLOGICAL:left sided paresis HEMATOLOGICAL: denies easy bruising SKIN: buttock rash PSYCHIATRIC: Unremarkable All other review of systems found to be negative. PHYSICAL EXAMINATION: VITAL SIGNS: Please see below. GENERAL: Pleasant and cooperative. No acute distress. HEENT: PERRL. Extraocular movements intact. Clear conjunctiva CARDIOVASCULAR: Regular rate and rhythm. No murmurs, rubs, or gallops LUNGS: Clear to auscultation bilaterally. No wheezes. No rhonchi ABDOMEN: Soft, nontender, nondistended. Positive bowel sounds. Normal active bowel sounds NEUROLOGICAL: Alert and oriented times three. Cranial nerves II through XII grossly intact. Sensation grossly diminished to light touch left UE and LE with extinction to touch EXTREMITIES: 5\5 strength right upper extremity, 2/5 LUE. 5\5 strength right lower extremity. 1/5 strength in left hip flexors, knee extensor, 0/5 ankle DF and EHL SKIN: sacrum with blanchable erythema, left posterior upper thigh with two lacerations, left hip incision with dermabond c/d/i back without erythema ASSESSMENT:64-year-old F with past medical history of brain tumor who presents status post left hip fracture and acute stroke with left sided paresis PLAN: 1. rehab- pt/ot advance mobility and ADLs, strengthen/stretch/maintain ROM all 4 limbs -[employer] patient with dysphagia currently on puree and thins 2. 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 Ortho- s/p left hip fracture with kathy-arthroplasty- posterior hip precautions, f/u ortho (consulted) 4. Cardiac- recent echo showing chronic grade 1 diastolic CHF, daily weights, will avoid fluid restriction given dysphagia, monitor for fluid overload - HLD- statin 5. Resp- current smoker, c/u duonebs and guaifenasin, monitor for infection- no leukocytosis -nicotine patch 6. DVT ppx- xarelto 7. GI ppx- lanzaprazole 8. Pain- tylneol prn -left shoulder pain- will trial lidoderm patch and taping 10. - proteus UTI started on Cefdinir, continue for 5 day total 10. Dispo- tbd Allergies Coded Allergies: codeine (Verified Allergy, Intermediate, hives, 10/27/18) latex (Verified Allergy, Intermediate, hives, 10/27/18) raspberry (Verified Allergy, Intermediate, hives, 10/27/18) Vital Signs Vital Signs Date Time Temp Pulse Resp B/P (MAP) Pulse Ox O2 Delivery O2 Flow Rate FiO2 02/06/20 05:27 97.5 78 18 121/62 (81) 95 Room Air Laboratory Data Labs 24H Laboratory Tests 2 02/05/20 22:56: Bedside Glucose (Misc Panel) 127H Microbiology Microbiology 02/01/20 Urine Culture - Final, Complete Proteus Mirabilis Current Medications Current Medications Current Medications Medications (Trade) Dose Ordered Sig/Hanny Route PRN Reason Start Time Stop Time Status Last Admin Dose Admin Acetaminophen (Tylenol Tab) 650 mg Q4HP PRN PO fever/ MILD PAIN (PS 1-4) 01/31/20 13:30 02/05/20 22:23 Albuterol/ Ipratropium (Duoneb (Ipr 0.5mg/Alb 2.5mg)) 3 ml RTID NEB 01/31/20 20:00 01/31/20 19:58 Cefdinir (Omnicef) 300 mg BID PO 02/04/20 09:00 02/06/20 09:55 Cyanocobalamin (Vitamin B12) 1,000 mcg DAILY PO 02/01/20 09:00 02/06/20 09:55 Dextrose/Sodium Chloride 1,000 ml @ 75 mls/hr [id number] IV 01/31/20 14:43 02/01/20 15:39 DC 02/01/20 05:56 Docusate Sodium (Colace Liquid) 100 mg BID PO 02/02/20 21:00 02/05/20 08:52 Docusate Sodium (Colace) 100 mg BID PO 01/31/20 21:00 02/02/20 11:55 DC 02/02/20 07:50 Fluoxetine HCl (PROzac) 20 mg QHS PO 01/31/20 21:00 02/05/20 22:07 Guaifenesin (Robitussin) 10 ml TID PO 01/31/20 16:00 02/05/20 17:09 Hydrocortisone (Hydrocortisone 1% Cream) apply to back BID TOP 02/05/20 09:00 02/06/20 09:57 Hydrocortisone (Proctosol Hc) apply to back BID TOP 02/05/20 21:00 02/05/20 14:29 DC Lactobacillus Acidophilus (Bacid) 1 ea TID PO 02/05/20 09:00 02/06/20 17:35 Lansoprazole (First-Lansoprazole Oral Suspension) 30 mg DAILY PO 02/01/20 09:00 02/06/20 09:54 Lidocaine (Lidoderm Patch) 1 patch QHS TD 02/06/20 21:00 UNV Lidocaine/ Diphenhydr/Alum/ Mg/Simeth (Magic Mouthwash) 5ML AC SSP 01/31/20 17:30 02/01/20 15:39 DC 02/01/20 14:28 Nicotine (Nicoderm Cq 21mg) 1 patch DAILY TD 02/02/20 09:00 02/06/20 09:55 Non-Formulary Medication ( See Comment Field Below ) REMOVE LIDODERM PATCH DAILY@21 XX 02/06/20 21:00 UNV Nystatin (Mycostatin Powder, Nystop) 1 dose BID TOP 01/31/20 21:00 02/06/20 09:58 Rivaroxaban (Xarelto) 10 mg DAILY@1800 PO 01/31/20 18:00 02/06/20 17:35 Rivaroxaban (Xarelto) 20 mg DAILY@1800 PO 01/31/20 18:00 01/31/20 16:29 DC Rosuvastatin Calcium (Crestor) 20 mg DAILY PO 02/01/20 09:00 02/06/20 09:55 Senna (Senokot) 1 tab QHS PO 01/31/20 21:00 02/03/20 21:30 Vitamin D (Vitamin D) 1,000 units DAILY PO 02/01/20 09:00 02/06/20 09:55 IRMA MONROY MD Feb 06, 2020 18:11
[2020-02-06] MEDS: SENNA 8.6 MG TAB (SENOKOT) PO SCH (21:00)
[2020-02-06] MEDS: FLUoxetine 20 MG CAP PO SCH (21:26)
[2020-02-06] MEDS: LIDOCAINE 5% (LIDODERM) PATCH TD SCH (21:28)
[2020-02-06 21:32] VITALS: BP 130/84
[2020-02-07] MEDS: ACETAMINOPHEN TAB 650MG DOSE (2X325MG) PO PRN (02:05)
[2020-02-07 05:18] VITALS: BP 123/69
[2020-02-07] MEDS: IPRATROPIUM 0.5MG/ALBUTEROL 2.5MG INH SOL UD 3ML (DUONEB) NEB SCH ×3 (06:01→19:42)
[2020-02-07 06:40] LABS: BASO % 0.8 % (0.0-1.0); EOS # 0.4 10^3/uL (0.0-0.5); EOS % 7.4 % (0.0-3.0); HEMATOCRIT 29.2 % (36.0-47.0); HEMOGLOBIN 9.6 g/dl (12.0-15.5); LYMPH # 1.3 10^3/uL (1.5-5.0); LYMPH % 26.9 % (24.0-44.0); MEAN CORPUSCULAR HEMOGLOBIN 28.7 pg (27.0-33.0); MEAN CORPUSCULAR HGB CONC 32.9 g/dl (32.0-36.5); MEAN CORPUSCULAR VOLUME 87.4 fl (80.0-96.0); MONO # 0.5 10^3/uL (0.0-0.8); MONO % 9.3 % (0.0-5.0); NEUTROPHILS # 2.7 10^3/uL (1.5-8.5); NEUTROPHILS % 55.2 % (36.0-66.0); PLATELET COUNT, AUTOMATED 374 10^3/uL (150-450); RED BLOOD COUNT 3.34 10^6/uL (4.00-5.40); WHITE BLOOD COUNT 4.8 10^3/uL (4.0-10.0)
[2020-02-07 07:06] LABS: BLOOD UREA NITROGEN 16 MG/DL (7-18); CALCIUM LEVEL 8.7 MG/DL (8.8-10.2); CARBON DIOXIDE LEVEL 29 MEQ/L (21-32); CHLORIDE LEVEL 107 MEQ/L (98-107); CREATININE FOR GFR 0.61 MG/DL (0.55-1.30); GLOMERULAR FILTRATION RATE > 60.0 (>45); GLUCOSE, FASTING 94 MG/DL (70-100); POTASSIUM SERUM 4.2 MEQ/L (3.5-5.1); SODIUM LEVEL 142 MEQ/L (136-145)
[2020-02-07] MEDS: NICOTINE 21MG/24HR 1 EA TRANSDERMAL TD SCH (09:00)
[2020-02-07] MEDS: CYANOCOBALAMIN 500 MCG TAB PO SCH (09:00)
[2020-02-07] MEDS: **NOTE PATIENT COMMENT** MISC XX SCH (09:00)
[2020-02-07] MEDS: ROSUVASTATIN 10 MG TAB (CRESTOR) PO SCH (09:00)
[2020-02-07] MEDS: REMEDY PHYTOPLEX Z-GUARD PASTE 113GM TUBE (FROM STOREROOM PRODUCT) TOP SCH ×3 (09:01→21:23)
[2020-02-07] MEDS: LANSOPRAZOLE SUSPENSION 30 MG/10 ML ORAL SYRINGE (FIRST-LANSOPRAZOLE) PO SCH (09:01)
[2020-02-07] MEDS: HYDROCORTISONE 1% CREAM 30 GM TOP SCH ×2 (09:01→21:21)
[2020-02-07] MEDS: NYSTATIN 100,000 UNITS/GM TOPICAL PWD 15 GM TOP SCH ×2 (09:01→21:22)
[2020-02-07] MEDS: LACTOBACILLUS ACIDOPHILUS CAP (BACID) PO SCH ×3 (09:01→21:17)
[2020-02-07] MEDS: CEFDINIR 300 MG CAP (OMNICEF) PO SCH ×2 (09:01→21:17)
[2020-02-07] MEDS: VITAMIN D 1,000 INTERNATIONAL UNITS TABLET PO SCH (09:01)
[2020-02-07] MEDS: guaiFENesin SYRUP 200 MG/10 ML UDC PO SCH ×3 (09:01→21:17)
[2020-02-07] MEDS: DOCUSATE SOD LIQ 100MG/10ML UDC PO SCH ×2 (09:01→21:00)
--- NOTE | 2020-02-07 12:00 | IPNPDOC ---
PM&R Progress Note DATE OF SERVICE: Feb 07, 2020 Gum Sprayer Progress Note Subjective: Patient reporting she feels anxious at times and likes to take ativan at home, she agreed to trial a beta-antonella instead to see if this helps her remain calm. REVIEW OF SYSTEMS: The following is a completed review of systems and has been reviewed. Review of systems otherwise unremarkable. PAIN: Patient self reports no pain EYES: No recent vision changes EARS, NOSE, & THROAT:+ dysphagia CARDIOVASCULAR: Denies chest pain or palpitations PULMONARY: Denies shortness of breath, +cough(improving) GASTROINTESTINAL: Denies constipation/diarrhea GENITOURINARY: +incontinence MUSCULOSKELETAL: left hip fracture NEUROLOGICAL:left sided paresis HEMATOLOGICAL: denies easy bruising SKIN: buttock rash PSYCHIATRIC: Unremarkable All other review of systems found to be negative. PHYSICAL EXAMINATION: VITAL SIGNS: Please see below. GENERAL: Pleasant and cooperative. No acute distress. HEENT: PERRL. Extraocular movements intact. Clear conjunctiva CARDIOVASCULAR: Regular rate and rhythm. No murmurs, rubs, or gallops LUNGS: Clear to auscultation bilaterally. No wheezes. No rhonchi ABDOMEN: Soft, nontender, nondistended. Positive bowel sounds. Normal active bowel sounds NEUROLOGICAL: Alert and oriented times three. Cranial nerves II through XII grossly intact. Sensation grossly diminished to light touch left UE and LE with extinction to touch EXTREMITIES: 5\5 strength right upper extremity, 2/5 LUE. 5\5 strength right lower extremity. 1/5 strength in left hip flexors, knee extensor, 0/5 ankle DF and EHL SKIN: sacrum with blanchable erythema, left posterior upper thigh with two lacerations, left hip incision with dermabond c/d/i back without erythema ASSESSMENT:64-year-old F with past medical history of brain tumor who presents status post left hip fracture and acute stroke with left sided paresis PLAN: 1. rehab- pt/ot advance mobility and ADLs, strengthen/stretch/maintain ROM all 4 limbs -[employer] patient with dysphagia currently on puree and thins 2. 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 Ortho- s/p left hip fracture with kathy-arthroplasty- posterior hip prec autions, f/u ortho (consulted) 4. Cardiac- recent echo showing chronic grade 1 diastolic CHF, daily weights, will avoid fluid restriction given dysphagia, monitor for fluid overload - HLD- statin 5. Resp- current smoker, c/u duonebs and guaifenasin, monitor for infection- no leukocytosis -nicotine patch 6. DVT ppx- xarelto 7. GI ppx- lanzaprazole 8. Pain- tylneol prn -left shoulder pain- will trial lidoderm patch and taping 9. - proteus UTI started on Cefdinir, continue for 5 day total 10. Psych- patient reporting she takes ativan at home for anxiety, will trial low dose propranolol to avoid sedative effects of benzos epecially ins etting of recent stroke 11. Dispo- tbd Allergies Coded Allergies: codeine (Verified Allergy, Intermediate, hives, 10/27/18) latex (Verified Allergy, Intermediate, hives, 10/27/18) raspberry (Verified Allergy, Intermediate, hives, 10/27/18) Vital Signs Vital Signs Date Time Temp Pulse Resp B/P (MAP) Pulse Ox O2 Delivery O2 Flow Rate FiO2 02/07/20 05:18 97.2 72 17 123/69 (87) 96 Room Air Laboratory Data CBC/BMP Laboratory Tests 02/07/20 06:24 Labs 24H Laboratory Tests 2 02/07/20 06:24: Immature Granulocyte % (Auto) 0.4, Neutrophils (%) (Auto) 55.2, Lymphocytes (%) (Auto) 26.9, Monocytes (%) (Auto) 9.3H, Eosinophils (%) (Auto) 7.4H, Basophils (%) (Auto) 0.8, Neutrophils # (Auto) 2.7, Lymphocytes # (Auto) 1.3L, Monocytes # (Auto) 0.5, Eosinophils # (Auto) 0.4, Basophils # (Auto) 0.0, Nucleated Red Blood Cells % (auto) 0.0, Anion Gap 6L, Glomerular Filtration Rate > 60.0, Calcium Level 8.7L Microbiology Microbiology 02/01/20 Urine Culture - Final, Complete Proteus Mirabilis Current Medications Current Medications Current Medications Medications (Trade) Dose Ordered Sig/Hanny Route PRN Reason Start Time Stop Time Status Last Admin Dose Admin Acetaminophen (Tylenol Tab) 650 mg Q4HP PRN PO fever/ MILD PAIN (PS 1-4) 01/31/20 13:30 02/07/20 02:05 Albuterol/ Ipratropium (Duoneb (Ipr 0.5mg/Alb 2.5mg)) 3 ml RTID NEB 01/31/20 20:00 01/31/20 19:58 Cefdinir (Omnicef) 300 mg BID PO 02/04/20 09:00 02/07/20 09:01 Cyanocobalamin (Vitamin B12) 1,000 mcg DAILY PO 02/01/20 09:00 02/07/20 09:00 Dextrose/Sodium Chloride 1,000 ml @ 75 mls/hr [id number] IV 01/31/20 14:43 02/01/20 15:39 DC 02/01/20 05:56 Docusate Sodium (Colace Liquid) 100 mg BID PO 02/02/20 21:00 02/07/20 09:01 Docusate Sodium (Colace) 100 mg BID PO 01/31/20 21:00 02/02/20 11:55 DC 02/02/20 07:50 Fluoxetine HCl (PROzac) 20 mg QHS PO 01/31/20 21:00 02/06/20 21:26 Guaifenesin (Robitussin) 10 ml TID PO 01/31/20 16:00 02/07/20 09:01 Hydrocortisone (Hydrocortisone 1% Cream) apply to back BID TOP 02/05/20 09:00 02/07/20 09:01 Hydrocortisone (Proctosol Hc) apply to back BID TOP 02/05/20 21:00 02/05/20 14:29 DC Lactobacillus Acidophilus (Bacid) 1 ea TID PO 02/05/20 09:00 02/07/20 09:01 Lansoprazole (First-Lansoprazole Oral Suspension) 30 mg DAILY PO 02/01/20 09:00 02/07/20 09:01 Lidocaine (Lidoderm Patch) 1 patch QHS TD 02/06/20 21:00 02/06/20 21:28 Lidocaine/ Diphenhydr/Alum/ Mg/Simeth (Magic Mouthwash) 5ML AC SSP 01/31/20 17:30 02/01/20 15:39 DC 02/01/20 14:28 Nicotine (Nicoderm Cq 21mg) 1 patch DAILY TD 02/02/20 09:00 02/07/20 09:00 Non-Formulary Medication ( See Comment Field Below ) REMOVE LIDODERM PATCH DAILY XX 02/07/20 09:00 02/07/20 09:00 Nystatin (Mycostatin Powder, Nystop) 1 dose BID TOP 01/31/20 21:00 02/07/20 09:01 Rivaroxaban (Xarelto) 10 mg DAILY@1800 PO 01/31/20 18:00 02/06/20 17:35 Rivaroxaban (Xarelto) 20 mg DAILY@1800 PO 01/31/20 18:00 01/31/20 16:29 DC Rosuvastatin Calcium (Crestor) 20 mg DAILY PO 02/01/20 09:00 02/07/20 09:00 Senna (Senokot) 1 tab QHS PO 01/31/20 21:00 02/03/20 21:30 Vitamin D (Vitamin D) 1,000 units DAILY PO 02/01/20 09:00 02/07/20 09:01 IRMA MONROY MD Feb 07, 2020 12:00
[2020-02-07 14:00] VITALS: BP 145/66
[2020-02-07] MEDS: PROPRANOLOL 10 MG TAB PO SCH ×2 (14:38→21:17)
[2020-02-07] MEDS: RIVAROXABAN 10 MG TAB (XARELTO) PO SCH (17:59)
[2020-02-07 20:30] VITALS: BP 120/57
[2020-02-07] MEDS: ANALGESIC BALM CRM 120 GM TOP SCH (21:00)
[2020-02-07] MEDS: FLUoxetine 20 MG CAP PO SCH (21:17)
[2020-02-07] MEDS: SENNA 8.6 MG TAB (SENOKOT) PO SCH (21:17)
[2020-02-07] MEDS: LIDOCAINE 5% (LIDODERM) PATCH TD SCH (21:20)
[2020-02-08] MEDS: ACETAMINOPHEN TAB 650MG DOSE (2X325MG) PO PRN (02:12)
[2020-02-08 06:02] VITALS: BP 133/69
[2020-02-08] MEDS: IPRATROPIUM 0.5MG/ALBUTEROL 2.5MG INH SOL UD 3ML (DUONEB) NEB SCH ×3 (07:40→19:42)
[2020-02-08] MEDS: ROSUVASTATIN 10 MG TAB (CRESTOR) PO SCH (08:38)
[2020-02-08] MEDS: VITAMIN D 1,000 INTERNATIONAL UNITS TABLET PO SCH (08:38)
[2020-02-08] MEDS: LACTOBACILLUS ACIDOPHILUS CAP (BACID) PO SCH ×3 (08:38→21:02)
[2020-02-08] MEDS: CYANOCOBALAMIN 500 MCG TAB PO SCH (08:38)
[2020-02-08] MEDS: DOCUSATE SOD LIQ 100MG/10ML UDC PO SCH ×2 (08:38→21:00)
[2020-02-08] MEDS: CEFDINIR 300 MG CAP (OMNICEF) PO SCH ×2 (08:38→21:02)
[2020-02-08] MEDS: NICOTINE 21MG/24HR 1 EA TRANSDERMAL TD SCH (08:38)
[2020-02-08] MEDS: HYDROCORTISONE 1% CREAM 30 GM TOP SCH ×2 (08:39→21:04)
[2020-02-08] MEDS: NYSTATIN 100,000 UNITS/GM TOPICAL PWD 15 GM TOP SCH ×2 (08:39→21:04)
[2020-02-08] MEDS: LANSOPRAZOLE SUSPENSION 30 MG/10 ML ORAL SYRINGE (FIRST-LANSOPRAZOLE) PO SCH (08:39)
[2020-02-08] MEDS: REMEDY PHYTOPLEX Z-GUARD PASTE 113GM TUBE (FROM STOREROOM PRODUCT) TOP SCH ×3 (08:40→21:04)
[2020-02-08] MEDS: guaiFENesin SYRUP 200 MG/10 ML UDC PO SCH ×3 (08:40→21:02)
[2020-02-08] MEDS: ANALGESIC BALM CRM 120 GM TOP SCH ×2 (08:40→21:03)
[2020-02-08] MEDS: **NOTE PATIENT COMMENT** MISC XX SCH (08:40)
--- NOTE | 2020-02-08 09:42 | IPNPDOC ---
PM&R Progress Note DATE OF SERVICE: Feb 08, 2020 Aircraft Engine Technician Progress Note Subjective: Patient reporting she thinks the propranolol is helping her to feel calmer. She denies fevers or chills. REVIEW OF SYSTEMS: The following is a completed review of systems and has been reviewed. Review of systems otherwise unremarkable. PAIN: Patient self reports no pain EYES: No recent vision changes EARS, NOSE, & THROAT:+ dysphagia CARDIOVASCULAR: Denies chest pain or palpitations PULMONARY: Denies shortness of breath, +cough(improving) GASTROINTESTINAL: Denies constipation/diarrhea GENITOURINARY: +incontinence MUSCULOSKELETAL: left hip fracture NEUROLOGICAL:left sided paresis HEMATOLOGICAL: denies easy bruising SKIN: buttock rash PSYCHIATRIC: Unremarkable All other review of systems found to be negative. PHYSICAL EXAMINATION: VITAL SIGNS: Please see below. GENERAL: Pleasant and cooperative. No acute distress. HEENT: PERRL. Extraocular movements intact. Clear conjunctiva CARDIOVASCULAR: Regular rate and rhythm. No murmurs, rubs, or gallops LUNGS: Clear to auscultation bilaterally. No wheezes. No rhonchi ABDOMEN: Soft, nontender, nondistended. Positive bowel sounds. Normal active bowel sounds NEUROLOGICAL: Alert and oriented times three. Cranial nerves II through XII grossly intact. Sensation grossly diminished to light touch left UE and LE with extinction to touch EXTREMITIES: 5\5 strength right upper extremity, 2/5 LUE. 5\5 strength right lower extremity. 1/5 strength in left hip flexors, knee extensor, 0/5 ankle DF and EHL SKIN: sacrum with blanchable erythema, left posterior upper thigh with two lacerations, left hip incision with dermabond c/d/i back without erythema ASSESSMENT:64-year-old F with past medical history of brain tumor who presents status post left hip fracture and acute stroke with left sided paresis PLAN: 1. rehab- pt/ot advance mobility and ADLs, strengthen/stretch/maintain ROM all 4 limbs -[employer] patient with dysphagia currently on puree and thins 2. 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 Ortho- s/p left hip fracture with kathy-arthroplasty- posterior hip precautions, f/u ortho (consulted) 4. Cardiac- recent echo showing chronic grade 1 diastolic CHF, daily weights, will avoid fluid restriction given dysphagia, monitor for fluid overload - HLD- statin 5. Resp- current smoker, c/u duonebs and guaifenasin, monitor for infection- no leukocytosis -nicotine patch 6. DVT ppx- xarelto 7. GI ppx- lanzaprazole 8. Pain- tylneol prn -left shoulder pain- c/u lidoderm patch and taping 9. - proteus UTI started on Cefdinir, continue for 5 day total 10. Psych- patient reporting she takes ativan at home for anxiety, c/u trial low dose propranolol to avoid sedative effects of benzos especially in setting of recent stroke 11. Dispo- 02-21-20 to home, will need 24-7, slowly progressing, will need family training Allergies Coded Allergies: codeine (Verified Allergy, Intermediate, hives, 10/27/18) latex (Verified Allergy, Intermediate, hives, 10/27/18) raspberry (Verified Allergy, Intermediate, hives, 10/27/18) Vital Signs Vital Signs Date Time Temp Pulse Resp B/P (MAP) Pulse Ox O2 Delivery O2 Flow Rate FiO2 02/08/20 06:02 97.9 77 18 133/69 (90) 96 Room Air Microbiology Microbiology 02/01/20 Urine Culture - Final, Complete Proteus Mirabilis Current Medications Current Medications Current Medications Medications (Trade) Dose Ordered Sig/Hanny Route PRN Reason Start Time Stop Time Status Last Admin Dose Admin Acetaminophen (Tylenol Tab) 650 mg Q4HP PRN PO fever/ MILD PAIN (PS 1-4) 01/31/20 13:30 02/08/20 02:12 Albuterol/ Ipratropium (Duoneb (Ipr 0.5mg/Alb 2.5mg)) 3 ml RTID NEB 01/31/20 20:00 01/31/20 19:58 Cefdinir (Omnicef) 300 mg BID PO 02/04/20 09:00 02/08/20 21:00 02/08/20 08:38 Cyanocobalamin (Vitamin B12) 1,000 mcg DAILY PO 02/01/20 09:00 02/08/20 08:38 Dextrose/Sodium Chloride 1,000 ml @ 75 mls/hr [id number] IV 01/31/20 14:43 02/01/20 15:39 DC 02/01/20 05:56 Docusate Sodium (Colace Liquid) 100 mg BID PO 02/02/20 21:00 02/08/20 08:38 Docusate Sodium (Colace) 100 mg BID PO 01/31/20 21:00 02/02/20 11:55 DC 02/02/20 07:50 Fluoxetine HCl (PROzac) 20 mg QHS PO 01/31/20 21:00 02/07/20 21:17 Guaifenesin (Robitussin) 10 ml TID PO 01/31/20 16:00 02/07/20 21:17 Hydrocortisone (Hydrocortisone 1% Cream) apply to back BID TOP 02/05/20 09:00 02/08/20 08:39 Hydrocortisone (Proctosol Hc) apply to back BID TOP 02/05/20 21:00 02/05/20 14:29 DC Hydroxyzine HCl (Atarax) 10 mg BIDP PRN PO itchy back 02/07/20 12:00 Lactobacillus Acidophilus (Bacid) 1 ea TID PO 02/05/20 09:00 02/08/20 08:38 Lansoprazole (First-Lansoprazole Oral Suspension) 30 mg DAILY PO 02/01/20 09:00 02/08/20 08:39 Lidocaine (Lidoderm Patch) 1 patch QHS TD 02/06/20 21:00 02/07/20 21:20 Lidocaine/ Diphenhydr/Alum/ Mg/Simeth (Magic Mouthwash) 5ML AC SSP 01/31/20 17:30 02/01/20 15:39 DC 02/01/20 14:28 Menthol/Methyl Salicylate (Bengay Cream) apply to painful are... BID TOP 02/07/20 21:00 02/08/20 08:40 Nicotine (Nicoderm Cq 21mg) 1 patch DAILY TD 02/02/20 09:00 02/08/20 08:38 Non-Formulary Medication ( See Comment Field Below ) REMOVE LIDODERM PATCH DAILY XX 02/07/20 09:00 02/08/20 08:40 Nystatin (Mycostatin Powder, Nystop) 1 dose BID TOP 01/31/20 21:00 02/08/20 08:39 Propranolol HCl (Inderal) 10 mg BID@1100,2100 PO 02/07/20 11:00 02/07/20 21:17 Rivaroxaban (Xarelto) 10 mg DAILY@1800 PO 01/31/20 18:00 02/07/20 17:59 Rivaroxaban (Xarelto) 20 mg DAILY@1800 PO 01/31/20 18:00 01/31/20 16:29 DC Rosuvastatin Calcium (Crestor) 20 mg DAILY PO 02/01/20 09:00 02/08/20 08:38 Senna (Senokot) 1 tab QHS PO 01/31/20 21:00 02/07/20 21:17 Vitamin D (Vitamin D) 1,000 units DAILY PO 02/01/20 09:00 02/08/20 08:38 IRMA MONROY MD Feb 08, 2020 09:42
[2020-02-08] MEDS ORDERED: BISACODYL 10 MG SUPP PR ONE (09:45)
[2020-02-08] MEDS: PROPRANOLOL 10 MG TAB PO SCH ×2 (11:44→21:02)
[2020-02-08 14:00] VITALS: BP 144/67
[2020-02-08] MEDS: RIVAROXABAN 10 MG TAB (XARELTO) PO SCH (18:09)
[2020-02-08 20:30] VITALS: BP 138/69
[2020-02-08] MEDS: SENNA 8.6 MG TAB (SENOKOT) PO SCH (21:00)
[2020-02-08] MEDS: FLUoxetine 20 MG CAP PO SCH (21:01)
[2020-02-08] MEDS: LIDOCAINE 5% (LIDODERM) PATCH TD SCH (21:03)
[2020-02-09 06:00] VITALS: BP 111/63
[2020-02-09] MEDS: IPRATROPIUM 0.5MG/ALBUTEROL 2.5MG INH SOL UD 3ML (DUONEB) NEB SCH ×3 (07:35→19:53)
[2020-02-09 07:36] LABS: BASO % 0.8 % (0.0-1.0); EOS # 0.3 10^3/uL (0.0-0.5); EOS % 5.3 % (0.0-3.0); HEMATOCRIT 30.6 % (36.0-47.0); HEMOGLOBIN 9.9 g/dl (12.0-15.5); LYMPH # 1.5 10^3/uL (1.5-5.0); LYMPH % 31.4 % (24.0-44.0); MEAN CORPUSCULAR HEMOGLOBIN 28.2 pg (27.0-33.0); MEAN CORPUSCULAR HGB CONC 32.4 g/dl (32.0-36.5); MEAN CORPUSCULAR VOLUME 87.2 fl (80.0-96.0); MONO # 0.5 10^3/uL (0.0-0.8); MONO % 9.6 % (0.0-5.0); NEUTROPHILS # 2.6 10^3/uL (1.5-8.5); NEUTROPHILS % 52.5 % (36.0-66.0); PLATELET COUNT, AUTOMATED 357 10^3/uL (150-450); RED BLOOD COUNT 3.51 10^6/uL (4.00-5.40); WHITE BLOOD COUNT 4.9 10^3/uL (4.0-10.0)
[2020-02-09 07:56] LABS: BLOOD UREA NITROGEN 16 MG/DL (7-18); CALCIUM LEVEL 8.7 MG/DL (8.8-10.2); CARBON DIOXIDE LEVEL 27 MEQ/L (21-32); CHLORIDE LEVEL 106 MEQ/L (98-107); CREATININE FOR GFR 0.57 MG/DL (0.55-1.30); GLOMERULAR FILTRATION RATE > 60.0 (>45); GLUCOSE, FASTING 90 MG/DL (70-100); POTASSIUM SERUM 4.2 MEQ/L (3.5-5.1); SODIUM LEVEL 143 MEQ/L (136-145)
[2020-02-09] MEDS: ANALGESIC BALM CRM 120 GM TOP SCH ×2 (09:00→21:59)
[2020-02-09] MEDS: HYDROCORTISONE 1% CREAM 30 GM TOP SCH ×2 (09:00→21:59)
[2020-02-09] MEDS: NYSTATIN 100,000 UNITS/GM TOPICAL PWD 15 GM TOP SCH ×2 (09:00→21:59)
[2020-02-09] MEDS: **NOTE PATIENT COMMENT** MISC XX SCH (09:00)
[2020-02-09] MEDS: guaiFENesin SYRUP 200 MG/10 ML UDC PO SCH ×3 (09:00→21:57)
[2020-02-09] MEDS: REMEDY PHYTOPLEX Z-GUARD PASTE 113GM TUBE (FROM STOREROOM PRODUCT) TOP SCH ×3 (09:00→21:59)
[2020-02-09] MEDS: DOCUSATE SOD LIQ 100MG/10ML UDC PO SCH ×2 (10:09→21:57)
[2020-02-09] MEDS: LACTOBACILLUS ACIDOPHILUS CAP (BACID) PO SCH ×3 (10:09→21:57)
[2020-02-09] MEDS: CYANOCOBALAMIN 500 MCG TAB PO SCH (10:10)
[2020-02-09] MEDS: VITAMIN D 1,000 INTERNATIONAL UNITS TABLET PO SCH (10:10)
[2020-02-09] MEDS: PROPRANOLOL 10 MG TAB PO SCH ×2 (10:10→21:58)
[2020-02-09] MEDS: ROSUVASTATIN 10 MG TAB (CRESTOR) PO SCH (10:11)
[2020-02-09] MEDS: LANSOPRAZOLE SUSPENSION 30 MG/10 ML ORAL SYRINGE (FIRST-LANSOPRAZOLE) PO SCH (10:11)
[2020-02-09] MEDS: NICOTINE 21MG/24HR 1 EA TRANSDERMAL TD SCH (10:11)
[2020-02-09 14:00] VITALS: BP 128/68
[2020-02-09] MEDS: RIVAROXABAN 10 MG TAB (XARELTO) PO SCH (17:18)
[2020-02-09 20:00] VITALS: BP 140/67
[2020-02-09] MEDS: FLUoxetine 20 MG CAP PO SCH (21:57)
[2020-02-09] MEDS: SENNA 8.6 MG TAB (SENOKOT) PO SCH (21:57)
[2020-02-09] MEDS: ACETAMINOPHEN TAB 650MG DOSE (2X325MG) PO PRN (21:57)
[2020-02-09] MEDS: LIDOCAINE 5% (LIDODERM) PATCH TD SCH (21:58)
[2020-02-10 06:00] VITALS: BP 136/78
[2020-02-10] MEDS: IPRATROPIUM 0.5MG/ALBUTEROL 2.5MG INH SOL UD 3ML (DUONEB) NEB SCH ×3 (07:35→19:37)
[2020-02-10] MEDS: ACETAMINOPHEN TAB 650MG DOSE (2X325MG) PO PRN ×2 (07:56→20:54)
[2020-02-10] MEDS: guaiFENesin SYRUP 200 MG/10 ML UDC PO SCH ×3 (08:29→20:54)
[2020-02-10] MEDS: VITAMIN D 1,000 INTERNATIONAL UNITS TABLET PO SCH (08:29)
[2020-02-10] MEDS: CYANOCOBALAMIN 500 MCG TAB PO SCH (08:29)
[2020-02-10] MEDS: LACTOBACILLUS ACIDOPHILUS CAP (BACID) PO SCH ×3 (08:29→20:54)
[2020-02-10] MEDS: LANSOPRAZOLE SUSPENSION 30 MG/10 ML ORAL SYRINGE (FIRST-LANSOPRAZOLE) PO SCH (08:29)
[2020-02-10] MEDS: ANALGESIC BALM CRM 120 GM TOP SCH ×2 (08:30→20:55)
[2020-02-10] MEDS: HYDROCORTISONE 1% CREAM 30 GM TOP SCH ×2 (08:30→20:55)
[2020-02-10] MEDS: NICOTINE 21MG/24HR 1 EA TRANSDERMAL TD SCH (08:30)
[2020-02-10] MEDS: REMEDY PHYTOPLEX Z-GUARD PASTE 113GM TUBE (FROM STOREROOM PRODUCT) TOP SCH ×3 (08:31→20:56)
[2020-02-10] MEDS: NYSTATIN 100,000 UNITS/GM TOPICAL PWD 15 GM TOP SCH ×2 (08:31→20:55)
[2020-02-10] MEDS: **NOTE PATIENT COMMENT** MISC XX SCH (08:31)
[2020-02-10] MEDS: ROSUVASTATIN 10 MG TAB (CRESTOR) PO SCH (08:31)
[2020-02-10] MEDS: DOCUSATE SOD LIQ 100MG/10ML UDC PO SCH ×2 (08:32→20:54)
[2020-02-10] MEDS: PROPRANOLOL 10 MG TAB PO SCH ×2 (12:02→20:54)
[2020-02-10 14:00] VITALS: BP 121/61
[2020-02-10] MEDS: RIVAROXABAN 10 MG TAB (XARELTO) PO SCH (17:39)
[2020-02-10 20:00] VITALS: BP 136/67
[2020-02-10] MEDS: FLUoxetine 20 MG CAP PO SCH (20:54)
[2020-02-10] MEDS: SENNA 8.6 MG TAB (SENOKOT) PO SCH (20:54)
[2020-02-10] MEDS: hydrOXYzine 10 MG TAB PO PRN (20:54)
[2020-02-10] MEDS: LIDOCAINE 5% (LIDODERM) PATCH TD SCH (20:55)
[2020-02-11 05:49] VITALS: BP 118/57
[2020-02-11] MEDS: **NOTE PATIENT COMMENT** MISC XX SCH (09:00)
[2020-02-11] MEDS: LACTOBACILLUS ACIDOPHILUS CAP (BACID) PO SCH ×3 (10:17→20:57)
[2020-02-11] MEDS: NICOTINE 21MG/24HR 1 EA TRANSDERMAL TD SCH (10:17)
[2020-02-11] MEDS: VITAMIN D 1,000 INTERNATIONAL UNITS TABLET PO SCH (10:17)
[2020-02-11] MEDS: ROSUVASTATIN 10 MG TAB (CRESTOR) PO SCH (10:17)
[2020-02-11] MEDS: guaiFENesin SYRUP 200 MG/10 ML UDC PO SCH ×3 (10:17→21:00)
[2020-02-11] MEDS: DOCUSATE SOD LIQ 100MG/10ML UDC PO SCH ×2 (10:18→20:58)
[2020-02-11] MEDS: ANALGESIC BALM CRM 120 GM TOP SCH ×2 (10:18→20:59)
[2020-02-11] MEDS: LANSOPRAZOLE SUSPENSION 30 MG/10 ML ORAL SYRINGE (FIRST-LANSOPRAZOLE) PO SCH (10:18)
[2020-02-11] MEDS: CYANOCOBALAMIN 500 MCG TAB PO SCH (10:18)
[2020-02-11] MEDS: HYDROCORTISONE 1% CREAM 30 GM TOP SCH ×2 (10:19→20:59)
[2020-02-11] MEDS: REMEDY PHYTOPLEX Z-GUARD PASTE 113GM TUBE (FROM STOREROOM PRODUCT) TOP SCH ×3 (10:19→20:58)
[2020-02-11] MEDS: NYSTATIN 100,000 UNITS/GM TOPICAL PWD 15 GM TOP SCH ×2 (10:19→20:59)
[2020-02-11] MEDS: IPRATROPIUM 0.5MG/ALBUTEROL 2.5MG INH SOL UD 3ML (DUONEB) NEB SCH ×2 (10:41→16:07)
[2020-02-11] MEDS: PROPRANOLOL 10 MG TAB PO SCH ×2 (10:52→20:58)
[2020-02-11] MEDS: ACETAMINOPHEN TAB 650MG DOSE (2X325MG) PO PRN ×2 (12:31→20:58)
--- NOTE | 2020-02-11 12:45 | IPNPDOC ---
Text Note Date of Service The patient was seen on 02/10/20. NOTE SUBJECTIVE: Patient does not offer any complaints this morning. Says to improvement on the left sided weakness. Has dysphagia, patient denies chest pain, n/v/d, shortness of breath, palpitations. VS have been stable. PHYSICAL EXAMINATION: VITAL SIGNS: Please see below CONSTITUTIONAL: No acute distress, laying in bed, awake and alert. EYES: PERRLA, EOM intact HENT, MOUTH: Normocephalic, atraumatic, moist mucous membranes NECK: SUPPLE, no JVD, no lymphadenopathy, no carotid bruit CV: Regular rate and rhythm, S1S2 normal, no murmurs/rubs/gallops RESPIRATORY: Clear to auscultation bilaterally, no rales/rhonchi/wheezes GI: BS positive in 4 quadrants, soft, nontender, nondistended, no rebound or guarding, no organomegaly MUSCULOSKELETAL: Normal ROM. No cyanosis, clubbing, swelling, joint deformity, extremity edema INTEGUMENTARY: Intact, no rashes, no lesions, no erythema NEUROLOGIC: Left upper weakness,2/5, can move toes 1/5 strength for LLE. 5/5 strength in right upper and lower ext. No sensory loss of LLE, LUE. Left side facial droop still on exam. left foot drop. 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 She is now s/p left hip cemented hemiarthroplasty on 01/23/20 with acute onset left sided paralysis on 01/25/20 found to have to acute CVA. Proteus UTI on Cefdinir. CVA, acute lacunar infarcts in the posterior right lentiform nucleus extending to the periventricular white matter and right medial frontal lobe. Xarelto, statin. Holding ASA for now as patient is on AC after surgery . will ne ed to start this when off xarelto. dysphagia, dietary recommendations pureed diet, thin liquids , crushed pills. On Fluoxetine. 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 No worsening with anticoagulation. H/o Seizure disorder. Stable used to be on Keppra but patient was not taking at home. not on any meds now. History of oligodendrocytoma, status post craniotomy with some mild cognitive dysfunction GI prophylaxis on Lansoprazole Anxiety on Propranolol. Vit D and Vit B12 Def on supplements. DVT px. Xarelto. VS,Fishbone, I+O VS, Fishbone, I+O Vital Signs Date Time Temp Pulse Resp B/P (MAP) Pulse Ox O2 Delivery O2 Flow Rate FiO2 02/10/20 06:00 97.5 50 18 136/78 (97) 99 Room Air I&O- Last 24 Hours up to 6 AM 02/10/20 05:59 Intake Total 420 ml Balance 420 ml REENA GALVAN MD Feb 10, 2020 11:51
[2020-02-11 14:00] VITALS: BP 121/59
[2020-02-11] MEDS: RIVAROXABAN 10 MG TAB (XARELTO) PO SCH (17:07)
[2020-02-11 20:20] VITALS: BP 148/76
[2020-02-11] MEDS: hydrOXYzine 10 MG TAB PO PRN (20:57)
[2020-02-11] MEDS: FLUoxetine 20 MG CAP PO SCH (20:57)
[2020-02-11] MEDS: SENNA 8.6 MG TAB (SENOKOT) PO SCH (20:57)
[2020-02-11] MEDS: LIDOCAINE 5% (LIDODERM) PATCH TD SCH (20:58)
[2020-02-12 05:36] VITALS: BP 126/59
[2020-02-12] MEDS: IPRATROPIUM 0.5MG/ALBUTEROL 2.5MG INH SOL UD 3ML (DUONEB) NEB SCH ×3 (08:00→20:19)
[2020-02-12] MEDS: guaiFENesin SYRUP 200 MG/10 ML UDC PO SCH ×3 (09:00→21:14)
[2020-02-12] MEDS: NYSTATIN 100,000 UNITS/GM TOPICAL PWD 15 GM TOP SCH ×2 (09:00→21:19)
[2020-02-12] MEDS: DOCUSATE SOD LIQ 100MG/10ML UDC PO SCH ×2 (09:00→21:00)
[2020-02-12 09:22] LABS: BASO # 0.1 10^3/uL (0.0-0.2); EOS # 0.4 10^3/uL (0.0-0.5); EOS % 7.1 % (0.0-3.0); HEMATOCRIT 36.3 % (36.0-47.0); HEMOGLOBIN 11.4 g/dl (12.0-15.5); LYMPH # 1.4 10^3/uL (1.5-5.0); LYMPH % 24.4 % (24.0-44.0); MEAN CORPUSCULAR HEMOGLOBIN 28.2 pg (27.0-33.0); MEAN CORPUSCULAR HGB CONC 31.4 g/dl (32.0-36.5); MEAN CORPUSCULAR VOLUME 89.9 fl (80.0-96.0); MONO # 0.5 10^3/uL (0.0-0.8); NEUTROPHILS # 3.4 10^3/uL (1.5-8.5); NEUTROPHILS % 58.2 % (36.0-66.0); PLATELET COUNT, AUTOMATED 352 10^3/uL (150-450); RED BLOOD COUNT 4.04 10^6/uL (4.00-5.40); WHITE BLOOD COUNT 5.8 10^3/uL (4.0-10.0)
[2020-02-12] MEDS: VITAMIN D 1,000 INTERNATIONAL UNITS TABLET PO SCH (09:30)
[2020-02-12] MEDS: LACTOBACILLUS ACIDOPHILUS CAP (BACID) PO SCH ×3 (09:30→21:16)
[2020-02-12] MEDS: LANSOPRAZOLE SUSPENSION 30 MG/10 ML ORAL SYRINGE (FIRST-LANSOPRAZOLE) PO SCH (09:30)
[2020-02-12] MEDS: CYANOCOBALAMIN 500 MCG TAB PO SCH (09:30)
[2020-02-12] MEDS: ROSUVASTATIN 10 MG TAB (CRESTOR) PO SCH (09:30)
[2020-02-12] MEDS: NICOTINE 21MG/24HR 1 EA TRANSDERMAL TD SCH (09:31)
[2020-02-12] MEDS: **NOTE PATIENT COMMENT** MISC XX SCH (09:32)
[2020-02-12] MEDS: HYDROCORTISONE 1% CREAM 30 GM TOP SCH ×2 (09:32→21:18)
[2020-02-12] MEDS: REMEDY PHYTOPLEX Z-GUARD PASTE 113GM TUBE (FROM STOREROOM PRODUCT) TOP SCH ×3 (09:32→21:19)
[2020-02-12] MEDS: ANALGESIC BALM CRM 120 GM TOP SCH ×2 (09:32→21:17)
[2020-02-12 09:45] LABS: BLOOD UREA NITROGEN 17 MG/DL (7-18); CALCIUM LEVEL 9.3 MG/DL (8.8-10.2); CARBON DIOXIDE LEVEL 29 MEQ/L (21-32); CHLORIDE LEVEL 104 MEQ/L (98-107); CREATININE FOR GFR 0.79 MG/DL (0.55-1.30); GLOMERULAR FILTRATION RATE > 60.0 (>45); GLUCOSE, FASTING 113 MG/DL (70-100); POTASSIUM SERUM 3.3 MEQ/L (3.5-5.1); SODIUM LEVEL 140 MEQ/L (136-145)
[2020-02-12] MEDS ORDERED: POTASSIUM CHLORIDE 10 MEQ SR TABLET PO ONE (10:00)
[2020-02-12] MEDS: PROPRANOLOL 10 MG TAB PO SCH ×2 (11:04→21:16)
[2020-02-12] MEDS: DICLOFENAC EPOLAMINE 1.3 % PATCH TOP SCH ×2 (12:22→21:16)
--- NOTE | 2020-02-12 12:32 | IPNPDOC ---
PM&R Progress Note DATE OF SERVICE: Feb 09, 2020 Fire Management Officer Progress Note Subjective: Patient reporting she would like ot be able to eat more substantial food. She states her left shoulder feels a little better today. REVIEW OF SYSTEMS: The following is a completed review of systems and has been reviewed. Review of systems otherwise unremarkable. PAIN: Patient self reports no pain EYES: No recent vision changes EARS, NOSE, & THROAT:+ dysphagia CARDIOVASCULAR: Denies chest pain or palpitations PULMONARY: Denies shortness of breath, +cough(improving) GASTROINTESTINAL: Denies constipation/diarrhea GENITOURINARY: +incontinence MUSCULOSKELETAL: left hip fracture NEUROLOGICAL:left sided paresis HEMATOLOGICAL: denies easy bruising SKIN: buttock rash PSYCHIATRIC: Unremarkable All other review of systems found to be negative. PHYSICAL EXAMINATION: VITAL SIGNS: Please see below. GENERAL: Pleasant and cooperative. No acute distress. HEENT: PERRL. Extraocular movements intact. Clear conjunctiva CARDIOVASCULAR: Regular rate and rhythm. No murmurs, rubs, or gallops LUNGS: Clear to auscultation bilaterally. No wheezes. No rhonchi ABDOMEN: Soft, nontender, nondistended. Positive bowel sounds. Normal active bowel sounds NEUROLOGICAL: Alert and oriented times three. Cranial nerves II through XII grossly intact. Sensation grossly diminished to light touch left UE and LE with extinction to touch EXTREMITIES: 5\5 strength right upper extremity, 2/5 LUE. 5\5 strength right lower extremity. 1/5 strength in left hip flexors, knee extensor, 0/5 ankle DF and EHL SKIN: sacrum with blanchable erythema, left posterior upper thigh with two lacerations, left hip incision with dermabond c/d/i back without erythema ASSESSMENT:64-year-old F with past medical history of brain tumor who presents status post left hip fracture and acute stroke with left sided paresis PLAN: 1. rehab- pt/ot advance mobility and ADLs, strengthen/stretch/maintain ROM all 4 limbs -[employer] patient with dysphagia currently on puree and thins 2. 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 Ortho- s/p left hip fracture with kathy-arthroplasty- posterior hip precautions, f/u ortho (consulted) 4. Cardiac- recent echo showing chronic grade 1 diastolic CHF, daily weights, will avoid fluid restriction given dysphagia, monitor for fluid overload - HLD- statin 5. Resp- current smoker, c/u duonebs and guaifenasin, monitor for infection- no leukocytosis -nicotine patch 6. DVT ppx- xarelto 7. GI ppx- lanzaprazole 8. Pain- tylneol prn -left shoulder pain- c/u lidoderm patch and taping, patient requested bengay for generalized muscle pain, c/u 9. - proteus UTI started on Cefdinir, continue for 5 day total 10. Psych-c/u trial low dose propranolol for anxiety 11. Dispo- 02-21-20 to home, will need 24-7, slowly progressing, will need family training Allergies Coded Allergies: codeine (Verified Allergy, Intermediate, hives, 10/27/18) latex (Verified Allergy, Intermediate, hives, 10/27/18) raspberry (Verified Allergy, Intermediate, hives, 10/27/18) Vital Signs Vital Signs Date Time Temp Pulse Resp B/P (MAP) Pulse Ox O2 Delivery O2 Flow Rate FiO2 02/12/20 11:04 74 125/57 02/12/20 05:36 97.8 18 96 Room Air Laboratory Data CBC/BMP Laboratory Tests 02/12/20 08:56 Labs 24H Laboratory Tests 2 02/12/20 08:56: Immature Granulocyte % (Auto) 0.3, Neutrophils (%) (Auto) 58.2, Lymphocytes (%) (Auto) 24.4, Monocytes (%) (Auto) 9.0H, Eosinophils (%) (Auto) 7.1H, Basophils (%) (Auto) 1.0, Neutrophils # (Auto) 3.4, Lymphocytes # (Auto) 1.4L, Monocytes # (Auto) 0.5, Eosinophils # (Auto) 0.4, Basophils # (Auto) 0.1, Nucleated Red Blood Cells % (auto) 0.0, Anion Gap 7L, Glomerular Filtration Rate > 60.0, Calcium Level 9.3 Current Medications Current Medications Current Medications Medications (Trade) Dose Ordered Sig/Hanny Route PRN Reason Start Time Stop Time Status Last Admin Dose Admin Acetaminophen (Tylenol Tab) 650 mg Q4HP PRN PO fever/ MILD PAIN (PS 1-4) 01/31/20 13:30 02/11/20 20:58 Albuterol/ Ipratropium (Duoneb (Ipr 0.5mg/Alb 2.5mg)) 3 ml RTID NEB 01/31/20 20:00 02/11/20 16:07 Cefdinir (Omnicef) 300 mg BID PO 02/04/20 09:00 02/08/20 21:00 DC 02/08/20 21:02 Cyanocobalamin (Vitamin B12) 1,000 mcg DAILY PO 02/01/20 09:00 02/12/20 09:30 Dextrose/Sodium Chloride 1,000 ml @ 75 mls/hr [id number] IV 01/31/20 14:43 02/01/20 15:39 DC 02/01/20 05:56 Diclofenac Epolamine (Flector 1.3%) 1 patch Q12H TOP 02/12/20 09:00 02/12/20 12:22 Docusate Sodium (Colace Liquid) 100 mg BID PO 02/02/20 21:00 02/11/20 20:58 Docusate Sodium (Colace) 100 mg BID PO 01/31/20 21:00 02/02/20 11:55 DC 02/02/20 07:50 Fluoxetine HCl (PROzac) 20 mg QHS PO 01/31/20 21:00 02/11/20 20:57 Guaifenesin (Robitussin) 10 ml TID PO 01/31/20 16:00 02/11/20 17:06 Hydrocortisone (Hydrocortisone 1% Cream) apply to back BID TOP 02/05/20 09:00 02/12/20 09:32 Hydrocortisone (Proctosol Hc) apply to back BID TOP 02/05/20 21:00 02/05/20 14:29 DC Hydroxyzine HCl (Atarax) 10 mg BIDP PRN PO itchy back 02/07/20 12:00 02/11/20 20:57 Lactobacillus Acidophilus (Bacid) 1 ea TID PO 02/05/20 09:00 02/12/20 09:30 Lansoprazole (First-Lansoprazole Oral Suspension) 30 mg DAILY PO 02/01/20 09:00 02/12/20 09:30 Lidocaine (Lidoderm Patch) 1 patch QHS TD 02/06/20 21:00 02/12/20 11:35 DC 02/11/20 20:58 Lidocaine/ Diphenhydr/Alum/ Mg/Simeth (Magic Mouthwash) 5ML AC SSP 01/31/20 17:30 02/01/20 15:39 DC 02/01/20 14:28 Menthol/Methyl Salicylate (Bengay Cream) apply to painful are... BID TOP 02/07/20 21:00 02/12/20 09:32 Nicotine (Nicoderm Cq 21mg) 1 patch DAILY TD 02/02/20 09:00 02/12/20 09:31 Non-Formulary Medication ( See Comment Field Below ) REMOVE LIDODERM PATCH DAILY XX 02/07/20 09:00 02/12/20 11:40 DC 02/12/20 09:32 Nystatin (Mycostatin Powder, Nystop) 1 dose BID TOP 01/31/20 21:00 02/11/20 20:59 Propranolol HCl (Inderal) 10 mg BID@1100,2100 PO 02/07/20 11:00 02/12/20 11:04 Rivaroxaban (Xarelto) 10 mg DAILY@1800 PO 01/31/20 18:00 02/11/20 17:07 Rivaroxaban (Xarelto) 20 mg DAILY@1800 PO 01/31/20 18:00 01/31/20 16:29 DC Rosuvastatin Calcium (Crestor) 20 mg DAILY PO 02/01/20 09:00 02/12/20 09:30 Senna (Senokot) 1 tab QHS PO 01/31/20 21:00 02/11/20 20:57 Vitamin D (Vitamin D) 1,000 units DAILY PO 02/01/20 09:00 02/12/20 09:30 IRMA MONROY MD Feb 12, 2020 12:32
--- NOTE | 2020-02-12 12:34 | IPNPDOC ---
PM&R Progress Note DATE OF SERVICE: Feb 12, 2020 Product Safety Manager Progress Note Subjective: Patient reporting she would like to have a pain patch on her left shoulder at all times and will trial flector patch in lieu of lidoderm. She believes her h usband will be able to assist her with transfers and ADLs at home. REVIEW OF SYSTEMS: The following is a completed review of systems and has been reviewed. Review of systems otherwise unremarkable. PAIN: Patient self reports no pain EYES: No recent vision changes EARS, NOSE, & THROAT:+ dysphagia CARDIOVASCULAR: Denies chest pain or palpitations PULMONARY: Denies shortness of breath, +cough(improving) GASTROINTESTINAL: Denies constipation/diarrhea GENITOURINARY: +incontinence MUSCULOSKELETAL: left hip fracture NEUROLOGICAL:left sided paresis HEMATOLOGICAL: denies easy bruising SKIN: buttock rash PSYCHIATRIC: Unremarkable All other review of systems found to be negative. PHYSICAL EXAMINATION: VITAL SIGNS: Please see below. GENERAL: Pleasant and cooperative. No acute distress. HEENT: PERRL. Extraocular movements intact. Clear conjunctiva CARDIOVASCULAR: Regular rate and rhythm. No murmurs, rubs, or gallops LUNGS: Clear to auscultation bilaterally. No wheezes. No rhonchi ABDOMEN: Soft, nontender, nondistended. Positive bowel sounds. Normal active bowel sounds NEUROLOGICAL: Alert and oriented times three. Cranial nerves II through XII grossly intact. Sensation grossly diminished to light touch left UE and LE with extinction to touch EXTREMITIES: 5\5 strength right upper extremity, 2/5 LUE. 5\5 strength right lower extremity. 1/5 strength in left hip flexors, knee extensor, 0/5 ankle DF and EHL SKIN: sacrum with blanchable erythema, left posterior upper thigh with two lace rations, left hip incision with dermabond c/d/i ASSESSMENT:64-year-old F with past medical history of brain tumor who presents status post left hip fracture and acute stroke with left sided paresis PLAN: 1. 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 Ortho- s/p left hip fracture with kathy-arthroplasty- posterior hip precautions, f/u ortho (consulted) 4. Cardiac- recent echo showing chronic grade 1 diastolic CHF, daily weights, will avoid fluid restriction given dysphagia, monitor for fluid overload - HLD- statin 5. Resp- current smoker, c/u duonebs and guaifenasin, monitor for infection- no leukocytosis -nicotine patch 6. DVT ppx- xarelto 7. GI ppx- lanzaprazole 8. Pain- tylneol prn -left shoulder pain- will switch to flector patch to left shoulder as patient would like a patch on for 24hrs a day and unable to do this with lidoderm 9. - s/p course of cefdinir for proteus UTI 10. Psych-c/u low dose propranolol for anxiety 11. Dispo- 02-21-20 to home, will need 24-7, slowly progressing, will need family training Allergies Coded Allergies: codeine (Verified Allergy, Intermediate, hives, 10/27/18) latex (Verified Allergy, Intermediate, hives, 10/27/18) raspberry (Verified Allergy, Intermediate, hives, 10/27/18) Vital Signs Vital Signs Date Time Temp Pulse Resp B/P (MAP) Pulse Ox O2 Delivery O2 Flow Rate FiO2 02/12/20 11:04 74 125/57 02/12/20 05:36 97.8 18 96 Room Air Laboratory Data CBC/BMP Laboratory Tests 02/12/20 08:56 Labs 24H Laboratory Tests 2 02/12/20 08:56: Immature Granulocyte % (Auto) 0.3, Neutrophils (%) (Auto) 58.2, Lymphocytes (%) (Auto) 24.4, Monocytes (%) (Auto) 9.0H, Eosinophils (%) (Auto) 7.1H, Basophils (%) (Auto) 1.0, Neutrophils # (Auto) 3.4, Lymphocytes # (Auto) 1.4L, Monocytes # (Auto) 0.5, Eosinophils # (Auto) 0.4, Basophils # (Auto) 0.1, Nucleated Red Blood Cells % (auto) 0.0, Anion Gap 7L, Glomerular Filtration Rate > 60.0, Calcium Level 9.3 Current Medications Current Medications Current Medications Medications (Trade) Dose Ordered Sig/Hanny Route PRN Reason Start Time Stop Time Status Last Admin Dose Admin Acetaminophen (Tylenol Tab) 650 mg Q4HP PRN PO fever/ MILD PAIN (PS 1-4) 01/31/20 13:30 02/11/20 20:58 Albuterol/ Ipratropium (Duoneb (Ipr 0.5mg/Alb 2.5mg)) 3 ml RTID NEB 01/31/20 20:00 02/11/20 16:07 Cefdinir (Omnicef) 300 mg BID PO 02/04/20 09:00 02/08/20 21:00 DC 02/08/20 21:02 Cyanocobalamin (Vitamin B12) 1,000 mcg DAILY PO 02/01/20 09:00 02/12/20 09:30 Dextrose/Sodium Chloride 1,000 ml @ 75 mls/hr [id number] IV 01/31/20 14:43 02/01/20 15:39 DC 02/01/20 05:56 Diclofenac Epolamine (Flector 1.3%) 1 patch Q12H TOP 02/12/20 09:00 02/12/20 12:22 Docusate Sodium (Colace Liquid) 100 mg BID PO 02/02/20 21:00 02/11/20 20:58 Docusate Sodium (Colace) 100 mg BID PO 01/31/20 21:00 02/02/20 11:55 DC 02/02/20 07:50 Fluoxetine HCl (PROzac) 20 mg QHS PO 01/31/20 21:00 02/11/20 20:57 Guaifenesin (Robitussin) 10 ml TID PO 01/31/20 16:00 02/11/20 17:06 Hydrocortisone (Hydrocortisone 1% Cream) apply to back BID TOP 02/05/20 09:00 02/12/20 09:32 Hydrocortisone (Proctosol Hc) apply to back BID TOP 02/05/20 21:00 02/05/20 14:29 DC Hydroxyzine HCl (Atarax) 10 mg BIDP PRN PO itchy back 02/07/20 12:00 02/11/20 20:57 Lactobacillus Acidophilus (Bacid) 1 ea TID PO 02/05/20 09:00 02/12/20 09:30 Lansoprazole (First-Lansoprazole Oral Suspension) 30 mg DAILY PO 02/01/20 09:00 02/12/20 09:30 Lidocaine (Lidoderm Patch) 1 patch QHS TD 02/06/20 21:00 02/12/20 11:35 DC 02/11/20 20:58 Lidocaine/ Diphenhydr/Alum/ Mg/Simeth (Magic Mouthwash) 5ML AC SSP 01/31/20 17:30 02/01/20 15:39 DC 02/01/20 14:28 Menthol/Methyl Salicylate (Bengay Cream) apply to painful are... BID TOP 02/07/20 21:00 02/12/20 09:32 Nicotine (Nicoderm Cq 21mg) 1 patch DAILY TD 02/02/20 09:00 02/12/20 09:31 Non-Formulary Medication ( See Comment Field Below ) REMOVE LIDODERM PATCH DAILY XX 02/07/20 09:00 02/12/20 11:40 DC 02/12/20 09:32 Nystatin (Mycostatin Powder, Nystop) 1 dose BID TOP 01/31/20 21:00 02/11/20 20:59 Propranolol HCl (Inderal) 10 mg BID@1100,2100 PO 02/07/20 11:00 02/12/20 11:04 Rivaroxaban (Xarelto) 10 mg DAILY@1800 PO 01/31/20 18:00 02/11/20 17:07 Rivaroxaban (Xarelto) 20 mg DAILY@1800 PO 01/31/20 18:00 01/31/20 16:29 DC Rosuvastatin Calcium (Crestor) 20 mg DAILY PO 02/01/20 09:00 02/12/20 09:30 Senna (Senokot) 1 tab QHS PO 01/31/20 21:00 02/11/20 20:57 Vitamin D (Vitamin D) 1,000 units DAILY PO 02/01/20 09:00 02/12/20 09:30 IRMA MONROY MD Feb 12, 2020 12:34
[2020-02-12 14:00] VITALS: BP 135/62
[2020-02-12] MEDS: RIVAROXABAN 10 MG TAB (XARELTO) PO SCH (17:22)
[2020-02-12 20:20] VITALS: BP 143/71
[2020-02-12] MEDS: SENNA 8.6 MG TAB (SENOKOT) PO SCH (21:14)
[2020-02-12] MEDS: ACETAMINOPHEN TAB 650MG DOSE (2X325MG) PO PRN (21:15)
[2020-02-12] MEDS: FLUoxetine 20 MG CAP PO SCH (21:16)
[2020-02-12] MEDS: hydrOXYzine 10 MG TAB PO PRN (21:16)
[2020-02-13 05:45] VITALS: BP 139/72
[2020-02-13] MEDS: IPRATROPIUM 0.5MG/ALBUTEROL 2.5MG INH SOL UD 3ML (DUONEB) NEB SCH ×3 (07:19→19:23)
[2020-02-13 07:22] LABS: BLOOD UREA NITROGEN 15 MG/DL (7-18); CALCIUM LEVEL 8.6 MG/DL (8.8-10.2); CARBON DIOXIDE LEVEL 28 MEQ/L (21-32); CHLORIDE LEVEL 109 MEQ/L (98-107); CREATININE FOR GFR 0.57 MG/DL (0.55-1.30); GLOMERULAR FILTRATION RATE > 60.0 (>45); GLUCOSE, FASTING 86 MG/DL (70-100); POTASSIUM SERUM 4.1 MEQ/L (3.5-5.1); SODIUM LEVEL 139 MEQ/L (136-145)
[2020-02-13] MEDS: CYANOCOBALAMIN 500 MCG TAB PO SCH (08:19)
[2020-02-13] MEDS: LACTOBACILLUS ACIDOPHILUS CAP (BACID) PO SCH ×3 (08:19→22:10)
[2020-02-13] MEDS: VITAMIN D 1,000 INTERNATIONAL UNITS TABLET PO SCH (08:19)
[2020-02-13] MEDS: NICOTINE 21MG/24HR 1 EA TRANSDERMAL TD SCH (08:20)
[2020-02-13] MEDS: LANSOPRAZOLE SUSPENSION 30 MG/10 ML ORAL SYRINGE (FIRST-LANSOPRAZOLE) PO SCH (08:20)
[2020-02-13] MEDS: DOCUSATE SOD LIQ 100MG/10ML UDC PO SCH ×2 (08:20→21:00)
[2020-02-13] MEDS: ROSUVASTATIN 10 MG TAB (CRESTOR) PO SCH (08:20)
[2020-02-13] MEDS: DICLOFENAC EPOLAMINE 1.3 % PATCH TOP SCH ×2 (08:20→22:27)
[2020-02-13] MEDS: guaiFENesin SYRUP 200 MG/10 ML UDC PO SCH ×3 (08:20→22:08)
[2020-02-13] MEDS: HYDROCORTISONE 1% CREAM 30 GM TOP SCH ×2 (08:21→22:26)
[2020-02-13] MEDS: ANALGESIC BALM CRM 120 GM TOP SCH ×2 (08:21→22:16)
[2020-02-13] MEDS: REMEDY PHYTOPLEX Z-GUARD PASTE 113GM TUBE (FROM STOREROOM PRODUCT) TOP SCH ×3 (08:22→22:17)
[2020-02-13] MEDS: NYSTATIN 100,000 UNITS/GM TOPICAL PWD 15 GM TOP SCH ×2 (08:22→22:17)
[2020-02-13] MEDS: PROPRANOLOL 10 MG TAB PO SCH ×2 (10:35→22:09)
[2020-02-13 14:00] VITALS: BP 116/66
[2020-02-13] MEDS: ACETAMINOPHEN TAB 650MG DOSE (2X325MG) PO PRN ×2 (14:01→22:11)
[2020-02-13] MEDS: RIVAROXABAN 10 MG TAB (XARELTO) PO SCH (18:00)
[2020-02-13 20:00] VITALS: BP 132/63
[2020-02-13] MEDS: FLUoxetine 20 MG CAP PO SCH (22:08)
[2020-02-13] MEDS: SENNA 8.6 MG TAB (SENOKOT) PO SCH (22:08)
[2020-02-13] MEDS: hydrOXYzine 10 MG TAB PO PRN (22:11)
[2020-02-14 05:30] VITALS: BP 125/58
[2020-02-14 07:24] LABS: BASO % 0.7 % (0.0-1.0); EOS # 0.3 10^3/uL (0.0-0.5); EOS % 7.2 % (0.0-3.0); HEMATOCRIT 30.2 % (36.0-47.0); LYMPH # 1.3 10^3/uL (1.5-5.0); LYMPH % 28.1 % (24.0-44.0); MEAN CORPUSCULAR HEMOGLOBIN 28.8 pg (27.0-33.0); MEAN CORPUSCULAR HGB CONC 33.1 g/dl (32.0-36.5); MONO # 0.4 10^3/uL (0.0-0.8); MONO % 8.5 % (0.0-5.0); NEUTROPHILS # 2.5 10^3/uL (1.5-8.5); NEUTROPHILS % 55.1 % (36.0-66.0); PLATELET COUNT, AUTOMATED 251 10^3/uL (150-450); RED BLOOD COUNT 3.47 10^6/uL (4.00-5.40); WHITE BLOOD COUNT 4.5 10^3/uL (4.0-10.0)
[2020-02-14 07:47] LABS: BLOOD UREA NITROGEN 14 MG/DL (7-18); CALCIUM LEVEL 8.7 MG/DL (8.8-10.2); CARBON DIOXIDE LEVEL 29 MEQ/L (21-32); CHLORIDE LEVEL 108 MEQ/L (98-107); CREATININE FOR GFR 0.55 MG/DL (0.55-1.30); GLOMERULAR FILTRATION RATE > 60.0 (>45); GLUCOSE, FASTING 91 MG/DL (70-100); POTASSIUM SERUM 3.7 MEQ/L (3.5-5.1); SODIUM LEVEL 138 MEQ/L (136-145)
[2020-02-14] MEDS: IPRATROPIUM 0.5MG/ALBUTEROL 2.5MG INH SOL UD 3ML (DUONEB) NEB SCH ×3 (08:00→20:09)
[2020-02-14] MEDS: DOCUSATE SOD LIQ 100MG/10ML UDC PO SCH ×2 (08:27→21:00)
[2020-02-14] MEDS: guaiFENesin SYRUP 200 MG/10 ML UDC PO SCH ×4 (08:31→22:03)
[2020-02-14] MEDS: NICOTINE 21MG/24HR 1 EA TRANSDERMAL TD SCH (08:32)
[2020-02-14] MEDS: DICLOFENAC EPOLAMINE 1.3 % PATCH TOP SCH ×2 (08:32→22:02)
[2020-02-14] MEDS: ANALGESIC BALM CRM 120 GM TOP SCH ×2 (08:32→21:00)
[2020-02-14] MEDS: CYANOCOBALAMIN 500 MCG TAB PO SCH (08:33)
[2020-02-14] MEDS: hydrOXYzine 10 MG TAB PO PRN (08:33)
[2020-02-14] MEDS: NYSTATIN 100,000 UNITS/GM TOPICAL PWD 15 GM TOP SCH ×2 (08:33→22:04)
[2020-02-14] MEDS: ROSUVASTATIN 10 MG TAB (CRESTOR) PO SCH (08:33)
[2020-02-14] MEDS: HYDROCORTISONE 1% CREAM 30 GM TOP SCH ×2 (08:33→22:04)
[2020-02-14] MEDS: VITAMIN D 1,000 INTERNATIONAL UNITS TABLET PO SCH (08:33)
[2020-02-14] MEDS: REMEDY PHYTOPLEX Z-GUARD PASTE 113GM TUBE (FROM STOREROOM PRODUCT) TOP SCH ×3 (08:34→21:00)
[2020-02-14] MEDS: LANSOPRAZOLE SUSPENSION 30 MG/10 ML ORAL SYRINGE (FIRST-LANSOPRAZOLE) PO SCH (08:36)
[2020-02-14] MEDS: LACTOBACILLUS ACIDOPHILUS CAP (BACID) PO SCH ×3 (08:36→22:02)
[2020-02-14] MEDS: ACETAMINOPHEN TAB 650MG DOSE (2X325MG) PO PRN (11:16)
[2020-02-14] MEDS: PROPRANOLOL 10 MG TAB PO SCH ×2 (11:16→22:03)
[2020-02-14 14:00] VITALS: BP 111/54
--- NOTE | 2020-02-14 14:26 | IPNPDOC ---
PM&R Progress Note DATE OF SERVICE: Feb 13, 2020 Forest Officer Progress Note Subjective: Patient reporting she feels tired and has not been sleeping well because she feels she is getting woken up too much at night for vitals and does not like be ing asked to get up early for therapy. REVIEW OF SYSTEMS: The following is a completed review of systems and has been reviewed. Review of systems otherwise unremarkable. PAIN: Patient self reports no pain EYES: No recent vision changes EARS, NOSE, & THROAT:+ dysphagia CARDIOVASCULAR: Denies chest pain or palpitations PULMONARY: Denies shortness of breath, +cough(improving) GASTROINTESTINAL: Denies constipation/diarrhea GENITOURINARY: +incontinence MUSCULOSKELETAL: left hip fracture NEUROLOGICAL:left sided paresis HEMATOLOGICAL: denies easy bruising SKIN: buttock rash PSYCHIATRIC: Unremarkable All other review of systems found to be negative. PHYSICAL EXAMINATION: VITAL SIGNS: Please see below. GENERAL: Pleasant and cooperative. No acute distress. HEENT: PERRL. Extraocular movements intact. Clear conjunctiva CARDIOVASCULAR: Regular rate and rhythm. No murmurs, rubs, or gallops LUNGS: Clear to auscultation bilaterally. No wheezes. No rhonchi ABDOMEN: Soft, nontender, nondistended. Positive bowel sounds. Normal active bowel sounds NEUROLOGICAL: Alert and oriented times three. Cranial nerves II through XII grossly intact. Sensation grossly diminished to light touch left UE and LE with extinction to touch EXTREMITIES: 5\5 strength right upper extremity, 2/5 LUE. 5\5 strength right lower extremity. 1/5 strength in left hip flexors, knee extensor, 0/5 ankle DF and EHL SKIN: sacrum with blanchable erythema, left posterior upper thigh with two lacerations, left hip incision with dermabond c/d/i ASSESSMENT:64-year-old F with past medical history of brain tumor who presents status post left hip fracture and acute stroke with left sided paresis PLAN: 1. 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 Ortho- s/p left hip fracture with kathy-arthroplasty- posterior hip precautions, f/u ortho (consulted) 4. Cardiac- recent echo showing chronic grade 1 diastolic CHF, daily weights, will avoid fluid restriction given dysphagia, monitor for fluid overload - HLD- statin 5. Resp- current smoker, c/u duonebs and guaifenasin, monitor for infection- no leukocytosis -nicotine patch 6. DVT ppx- xarelto 7. GI ppx- lanzaprazole 8. Pain- tylneol prn -left shoulder pain- c/u flector patch to left shoulder as patient would like a patch on for 24hrs a day and unable to do this with lidoderm 9. - s/p course of cefdinir for proteus UTI 10. Psych-c/u low dose propranolol for anxiety 11. Dispo- 02-21-20 to home, will need 24-7, slowly progressing, family training today Allergies Coded Allergies: codeine (Verified Allergy, Intermediate, hives, 10/27/18) latex (Verified Allergy, Intermediate, hives, 10/27/18) raspberry (Verified Allergy, Intermediate, hives, 10/27/18) Vital Signs Vital Signs Date Time Temp Pulse Resp B/P (MAP) Pulse Ox O2 Delivery O2 Flow Rate FiO2 02/14/20 14:00 97.4 64 20 111/54 (73) 96 Room Air Laboratory Data CBC/BMP Laboratory Tests 02/14/20 06:58 Labs 24H Laboratory Tests 2 02/14/20 06:58: Immature Granulocyte % (Auto) 0.4, Neutrophils (%) (Auto) 55.1, Lymphocytes (%) (Auto) 28.1, Monocytes (%) (Auto) 8.5H, Eosinophils (%) (Auto) 7.2H, Basophils (%) (Auto) 0.7, Neutrophils # (Auto) 2.5, Lymphocytes # (Auto) 1.3L, Monocytes # (Auto) 0.4, Eosinophils # (Auto) 0.3, Basophils # (Auto) 0.0, Nucleated Red Blo od Cells % (auto) 0.0, Anion Gap 1L, Glomerular Filtration Rate > 60.0, Calcium Level 8.7L Current Medications Current Medications Current Medications Medications (Trade) Dose Ordered Sig/Hanny Route PRN Reason Start Time Stop Time Status Last Admin Dose Admin Acetaminophen (Tylenol Tab) 650 mg Q4HP PRN PO fever/ MILD PAIN (PS 1-4) 01/31/20 13:30 02/14/20 11:16 Albuterol/ Ipratropium (Duoneb (Ipr 0.5mg/Alb 2.5mg)) 3 ml RTID NEB 01/31/20 20:00 02/13/20 19:23 Cefdinir (Omnicef) 300 mg BID PO 02/04/20 09:00 02/08/20 21:00 DC 02/08/20 21:02 Cyanocobalamin (Vitamin B12) 1,000 mcg DAILY PO 02/01/20 09:00 02/14/20 08:33 Dextrose/Sodium Chloride 1,000 ml @ 75 mls/hr [id number] IV 01/31/20 14:43 02/01/20 15:39 DC 02/01/20 05:56 Diclofenac Epolamine (Flector 1.3%) 1 patch Q12H TOP 02/12/20 09:00 02/14/20 08:32 Docusate Sodium (Colace Liquid) 100 mg BID PO 02/02/20 21:00 02/13/20 08:20 Docusate Sodium (Colace) 100 mg BID PO 01/31/20 21:00 02/02/20 11:55 DC 02/02/20 07:50 Fluoxetine HCl (PROzac) 20 mg QHS PO 01/31/20 21:00 02/13/20 22:08 Guaifenesin (Robitussin) 10 ml TID PO 01/31/20 16:00 02/13/20 22:08 Hydrocortisone (Hydrocortisone 1% Cream) apply to back BID TOP 02/05/20 09:00 02/14/20 08:33 Hydrocortisone (Proctosol Hc) apply to back BID TOP 02/05/20 21:00 02/05/20 14:29 DC Hydroxyzine HCl (Atarax) 10 mg BIDP PRN PO itchy back 02/07/20 12:00 02/14/20 08:33 Lactobacillus Acidophilus (Bacid) 1 ea TID PO 02/05/20 09:00 02/14/20 08:36 Lansoprazole (First-Lansoprazole Oral Suspension) 30 mg DAILY PO 02/01/20 09:00 02/14/20 08:36 Lidocaine (Lidoderm Patch) 1 patch QHS TD 02/06/20 21:00 02/12/20 11:35 DC 02/11/20 20:58 Lidocaine/ Diphenhydr/Alum/ Mg/Simeth (Magic Mouthwash) 5ML AC SSP 01/31/20 17:30 02/01/20 15:39 DC 02/01/20 14:28 Menthol/Methyl Salicylate (Bengay Cream) apply to painful are... BID TOP 02/07/20 21:00 02/14/20 08:32 Nicotine (Nicoderm Cq 21mg) 1 patch DAILY TD 02/02/20 09:00 02/14/20 08:32 Non-Formulary Medication ( See Comment Field Below ) REMOVE LIDODERM PATCH DAILY XX 02/07/20 09:00 02/12/20 11:40 DC 02/12/20 09:32 Nystatin (Mycostatin Powder, Nystop) 1 dose BID TOP 01/31/20 21:00 02/14/20 08:33 Propranolol HCl (Inderal) 10 mg BID@1100,2100 PO 02/07/20 11:00 02/14/20 11:16 Rivaroxaban (Xarelto) 10 mg DAILY@1800 PO 01/31/20 18:00 02/13/20 18:00 Rivaroxaban (Xarelto) 20 mg DAILY@1800 PO 01/31/20 18:00 01/31/20 16:29 DC Rosuvastatin Calcium (Crestor) 20 mg DAILY PO 02/01/20 09:00 02/14/20 08:33 Senna (Senokot) 1 tab QHS PO 01/31/20 21:00 02/13/20 22:08 Vitamin D (Vitamin D) 1,000 units DAILY PO 02/01/20 09:00 02/14/20 08:33 IRMA MONROY MD Feb 14, 2020 14:26
--- NOTE | 2020-02-14 14:26 | IPNPDOC ---
PM&R Progress Note DATE OF SERVICE: Feb 14, 2020 Market Research Consultant Progress Note Subjective: Patient seen in therapy working on propelling herself, no complaints. REVIEW OF SYSTEMS: The following is a completed review of systems and has been reviewed. Review of systems otherwise unremarkable. PAIN: Patient self reports no pain EYES: No recent vision changes EARS, NOSE, & THROAT:+ dysphagia CARDIOVASCULAR: Denies chest pain or palpitations PULMONARY: Denies shortness of breath, +cough(improving) GASTROINTESTINAL: Denies constipation/diarrhea GENITOURINARY: +incontinence MUSCULOSKELETAL: left hip fracture NEUROLOGICAL:left sided paresis HEMATOLOGICAL: denies easy bruising SKIN: buttock rash (improving) PSYCHIATRIC: Unremarkable All other review of systems found to be negative. PHYSICAL EXAMINATION: VITAL SIGNS: Please see below. GENERAL: Pleasant and cooperative. No acute distress. HEENT: PERRL. Extraocular movements intact. Clear conjunctiva CARDIOVASCULAR: Regular rate and rhythm. No murmurs, rubs, or gallops LUNGS: Clear to auscultation bilaterally. No wheezes. No rhonchi ABDOMEN: Soft, nontender, nondistended. Positive bowel sounds. Normal active bowel sounds NEUROLOGICAL: Alert and oriented times three. Cranial nerves II through XII grossly intact. Sensation grossly diminished to light touch left UE and LE with extinction to touch EXTREMITIES: 5\5 strength right upper extremity, 2/5 LUE. 5\5 strength right lower extremity. 1/5 strength in left hip flexors, knee extensor, 0/5 ankle DF and EHL SKIN: sacrum with blanchable erythema, left posterior upper thigh with two lacerations, left hip incision with dermabond c/d/i ASSESSMENT:64-year-old F with past medical history of brain tumor who presents status post left hip fracture and acute stroke with left sided paresis PLAN: 1. 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 Ortho- s/p left hip fracture with kathy-arthroplasty- posterior hip precautions, f/u ortho (consulted) 4. Cardiac- recent echo showing chronic grade 1 diastolic CHF, daily weights, will avoid fluid restriction given dysphagia, monitor for fluid overload - HLD- statin 5. Resp- current smoker, c/u duonebs and guaifenesin, monitor for infection- no leukocytosis -nicotine patch 6. DVT ppx- xarelto 7. GI ppx- lanzaprazole 8. Pain- tylneol prn -left shoulder pain- c/u flector patch to left shoulder as patient would like a patch on for 24hrs a day and unable to do this with lidoderm 9. - s/p course of cefdinir for proteus UTI 10. Psych-c/u low dose propranolol for anxiety 11. Dispo- 02-21-20 to home, will need 24-7, slowly progressing, family training in process Allergies Coded Allergies: codeine (Verified Allergy, Intermediate, hives, 10/27/18) latex (Verified Allergy, Intermediate, hives, 10/27/18) raspberry (Verified Allergy, Intermediate, hives, 10/27/18) Vital Signs Vital Signs Date Time Temp Pulse Resp B/P (MAP) Pulse Ox O2 Delivery O2 Flow Rate FiO2 02/14/20 14:00 97.4 64 20 111/54 (73) 96 Room Air Laboratory Data CBC/BMP Laboratory Tests 02/14/20 06:58 Labs 24H Laboratory Tests 2 02/14/20 06:58: Immature Granulocyte % (Auto) 0.4, Neutrophils (%) (Auto) 55.1, Lymphocytes (%) (Auto) 28.1, Monocytes (%) (Auto) 8.5H, Eosinophils (%) (Auto) 7.2H, Basophils (%) (Auto) 0.7, Neutrophils # (Auto) 2.5, Lymphocytes # (Auto) 1.3L, Monocytes # (Auto) 0.4, Eosinophils # (Auto) 0.3, Basophils # (Auto) 0.0, Nucleated Red Blood Cells % (auto) 0.0, Anion Gap 1L, Glomerular Filtration Rate > 60.0, Calcium Level 8.7L Current Medications Current Medications Current Medications Medications (Trade) Dose Ordered Sig/Hanny Route PRN Reason Start Time Stop Time Status Last Admin Dose Admin Acetaminophen (Tylenol Tab) 650 mg Q4HP PRN PO fever/ MILD PAIN (PS 1-4) 01/31/20 13:30 02/14/20 11:16 Albuterol/ Ipratropium (Duoneb (Ipr 0.5mg/Alb 2.5mg)) 3 ml RTID NEB 01/31/20 20:00 02/13/20 19:23 Cefdinir (Omnicef) 300 mg BID PO 02/04/20 09:00 02/08/20 21:00 DC 02/08/20 21:02 Cyanocobalamin (Vitamin B12) 1,000 mcg DAILY PO 02/01/20 09:00 02/14/20 08:33 Dextrose/Sodium Chloride 1,000 ml @ 75 mls/hr [id number] IV 01/31/20 14:43 02/01/20 15:39 DC 02/01/20 05:56 Diclofenac Epolamine (Flector 1.3%) 1 patch Q12H TOP 02/12/20 09:00 02/14/20 08:32 Docusate Sodium (Colace Liquid) 100 mg BID PO 02/02/20 21:00 02/13/20 08:20 Docusate Sodium (Colace) 100 mg BID PO 01/31/20 21:00 02/02/20 11:55 DC 02/02/20 07:50 Fluoxetine HCl (PROzac) 20 mg QHS PO 01/31/20 21:00 02/13/20 22:08 Guaifenesin (Robitussin) 10 ml TID PO 01/31/20 16:00 02/13/20 22:08 Hydrocortisone (Hydrocortisone 1% Cream) apply to back BID TOP 02/05/20 09:00 02/14/20 08:33 Hydrocortisone (Proctosol Hc) apply to back BID TOP 02/05/20 21:00 02/05/20 14:29 DC Hydroxyzine HCl (Atarax) 10 mg BIDP PRN PO itchy back 02/07/20 12:00 02/14/20 08:33 Lactobacillus Acidophilus (Bacid) 1 ea TID PO 02/05/20 09:00 02/14/20 08:36 Lansoprazole (First-Lansoprazole Oral Suspension) 30 mg DAILY PO 02/01/20 09:00 02/14/20 08:36 Lidocaine (Lidoderm Patch) 1 patch QHS TD 02/06/20 21:00 02/12/20 11:35 DC 02/11/20 20:58 Lidocaine/ Diphenhydr/Alum/ Mg/Simeth (Magic Mouthwash) 5ML AC SSP 01/31/20 17:30 02/01/20 15:39 DC 02/01/20 14:28 Menthol/Methyl Salicylate (Bengay Cream) apply to painful are... BID TOP 02/07/20 21:00 02/14/20 08:32 Nicotine (Nicoderm Cq 21mg) 1 patch DAILY TD 02/02/20 09:00 02/14/20 08:32 Non-Formulary Medication ( See Comment Field Below ) REMOVE LIDODERM PATCH DAILY XX 02/07/20 09:00 02/12/20 11:40 DC 02/12/20 09:32 Nystatin (Mycostatin Powder, Nystop) 1 dose BID TOP 01/31/20 21:00 02/14/20 08:33 Propranolol HCl (Inderal) 10 mg BID@1100,2100 PO 02/07/20 11:00 02/14/20 11:16 Rivaroxaban (Xarelto) 10 mg DAILY@1800 PO 01/31/20 18:00 02/13/20 18:00 Rivaroxaban (Xarelto) 20 mg DAILY@1800 PO 01/31/20 18:00 01/31/20 16:29 DC Rosuvastatin Calcium (Crestor) 20 mg DAILY PO 02/01/20 09:00 02/14/20 08:33 Senna (Senokot) 1 tab QHS PO 01/31/20 21:00 02/13/20 22:08 Vitamin D (Vitamin D) 1,000 units DAILY PO 02/01/20 09:00 02/14/20 08:33 IRMA MONROY MD Feb 14, 2020 14:26
[2020-02-14] MEDS: RIVAROXABAN 10 MG TAB (XARELTO) PO SCH (17:34)
[2020-02-14 20:00] VITALS: BP 145/64
[2020-02-14] MEDS: SENNA 8.6 MG TAB (SENOKOT) PO SCH (21:00)
[2020-02-14] MEDS: FLUoxetine 20 MG CAP PO SCH (22:02)
[2020-02-15 06:00] VITALS: BP 122/58
[2020-02-15] MEDS: IPRATROPIUM 0.5MG/ALBUTEROL 2.5MG INH SOL UD 3ML (DUONEB) NEB SCH (08:00)
[2020-02-15] MEDS: guaiFENesin SYRUP 200 MG/10 ML UDC PO SCH (08:14)
[2020-02-15] MEDS: ROSUVASTATIN 10 MG TAB (CRESTOR) PO SCH (08:14)
[2020-02-15] MEDS: DICLOFENAC EPOLAMINE 1.3 % PATCH TOP SCH (08:14)
[2020-02-15] MEDS: NICOTINE 21MG/24HR 1 EA TRANSDERMAL TD SCH (08:14)
[2020-02-15] MEDS: LANSOPRAZOLE SUSPENSION 30 MG/10 ML ORAL SYRINGE (FIRST-LANSOPRAZOLE) PO SCH (08:14)
[2020-02-15] MEDS: CYANOCOBALAMIN 500 MCG TAB PO SCH (08:15)
[2020-02-15] MEDS: VITAMIN D 1,000 INTERNATIONAL UNITS TABLET PO SCH (08:15)
[2020-02-15] MEDS: DOCUSATE SOD LIQ 100MG/10ML UDC PO SCH (08:15)
[2020-02-15] MEDS: LACTOBACILLUS ACIDOPHILUS CAP (BACID) PO SCH (08:15)
[2020-02-15] MEDS: NYSTATIN 100,000 UNITS/GM TOPICAL PWD 15 GM TOP SCH (08:16)
[2020-02-15] MEDS: ANALGESIC BALM CRM 120 GM TOP SCH (08:16)
[2020-02-15] MEDS: HYDROCORTISONE 1% CREAM 30 GM TOP SCH (08:16)
[2020-02-15] MEDS: REMEDY PHYTOPLEX Z-GUARD PASTE 113GM TUBE (FROM STOREROOM PRODUCT) TOP SCH (08:17)
[2020-02-15 11:00] VITALS: BP 108/60
[2020-02-15] MEDS: PROPRANOLOL 10 MG TAB PO SCH (11:00)
[2020-02-17] MEDS ORDERED: DOCUSATE SOD LIQ 100MG/10ML UDC ONE ×2 (08:57)
[2020-02-17] MEDS ORDERED: LACTOBACILLUS ACIDOPHILUS CAP (BACID) ONE ×3 (08:57)
[2020-02-17] MEDS ORDERED: SENNA 8.6 MG TAB (SENOKOT) ONE (08:57)
[2020-02-17] MEDS ORDERED: FLUoxetine 20 MG CAP ONE (08:57)
[2020-02-17] MEDS ORDERED: PROPRANOLOL 10 MG TAB ONE ×2 (08:57)
[2020-02-17] MEDS ORDERED: LANSOPRAZOLE SUSPENSION 30 MG/10 ML ORAL SYRINGE (FIRST-LANSOPRAZOLE) ONE (08:57)
[2020-02-17] MEDS ORDERED: guaiFENesin SYRUP 200 MG/10 ML UDC ONE ×4 (08:57→11:30)
[2020-02-17] MEDS ORDERED: ACETAMINOPHEN TAB 650MG DOSE (2X325MG) ONE (08:57)
[2020-02-17] MEDS ORDERED: VITAMIN D 1,000 INTERNATIONAL UNITS TABLET ONE (08:57)
[2020-02-17] MEDS ORDERED: RIVAROXABAN 10 MG TAB (XARELTO) ONE (08:57)
[2020-02-17] MEDS ORDERED: ROSUVASTATIN 10 MG TAB (CRESTOR) ONE (08:57)
[2020-02-17] MEDS ORDERED: CYANOCOBALAMIN 500 MCG TAB ONE (08:57)
[2020-02-17] MEDS ORDERED: DICLOFENAC EPOLAMINE 1.3 % PATCH ONE ×3 (08:57→11:30)
[2020-02-17] MEDS ORDERED: NICOTINE 21MG/24HR 1 EA TRANSDERMAL ONE (08:57)
[2020-02-18] MEDS ORDERED: ACETAMINOPHEN TAB 650MG DOSE (2X325MG) ONE (06:22)
[2020-02-18] MEDS ORDERED: LACTOBACILLUS ACIDOPHILUS CAP (BACID) ONE ×2 (06:22→09:20)
[2020-02-18] MEDS ORDERED: guaiFENesin SYRUP 200 MG/10 ML UDC ONE ×2 (06:22→09:20)
[2020-02-18] MEDS ORDERED: RIVAROXABAN 10 MG TAB (XARELTO) ONE (06:22)
[2020-02-18] MEDS ORDERED: FLUoxetine 20 MG CAP ONE (06:22)
[2020-02-18] MEDS ORDERED: SENNA 8.6 MG TAB (SENOKOT) ONE (09:20)
[2020-02-18] MEDS ORDERED: DICLOFENAC EPOLAMINE 1.3 % PATCH ONE (09:20)
[2020-02-18] MEDS ORDERED: DOCUSATE SOD LIQ 100MG/10ML UDC ONE (09:20)
[2020-02-18] MEDS ORDERED: PROPRANOLOL 10 MG TAB ONE (09:20)
[2020-02-19] MEDS ORDERED: LACTOBACILLUS ACIDOPHILUS CAP (BACID) ONE ×3 (09:06→21:16)
[2020-02-19] MEDS ORDERED: DICLOFENAC EPOLAMINE 1.3 % PATCH ONE ×2 (09:06→21:16)
[2020-02-19] MEDS ORDERED: VITAMIN D 1,000 INTERNATIONAL UNITS TABLET ONE (09:06)
[2020-02-19] MEDS ORDERED: CYANOCOBALAMIN 500 MCG TAB ONE (09:06)
[2020-02-19] MEDS ORDERED: NICOTINE 21MG/24HR 1 EA TRANSDERMAL ONE (09:06)
[2020-02-19] MEDS ORDERED: guaiFENesin SYRUP 200 MG/10 ML UDC ONE ×2 (09:06→21:16)
[2020-02-19] MEDS ORDERED: DOCUSATE SOD LIQ 100MG/10ML UDC ONE ×2 (09:06→21:16)
[2020-02-19] MEDS ORDERED: LANSOPRAZOLE SUSPENSION 30 MG/10 ML ORAL SYRINGE (FIRST-LANSOPRAZOLE) ONE (09:06)
[2020-02-19] MEDS ORDERED: ROSUVASTATIN 10 MG TAB (CRESTOR) ONE (09:06)
[2020-02-19] MEDS ORDERED: PROPRANOLOL 10 MG TAB ONE ×2 (12:00→21:16)
[2020-02-19] MEDS ORDERED: hydrOXYzine 10 MG TAB ONE ×2 (13:00→21:16)
[2020-02-19] MEDS ORDERED: RIVAROXABAN 10 MG TAB (XARELTO) ONE (17:34)
[2020-02-19] MEDS ORDERED: MOM 30ML SUSPENSION UDC As Ordered ONE (21:16)
[2020-02-19] MEDS ORDERED: ACETAMINOPHEN TAB 650MG DOSE (2X325MG) ONE (21:16)
[2020-02-19] MEDS ORDERED: FLUoxetine 20 MG CAP ONE (21:16)
[2020-02-19] MEDS ORDERED: SENNA 8.6 MG TAB (SENOKOT) ONE (21:16)
[2020-02-20] MEDS ORDERED: LACTOBACILLUS ACIDOPHILUS CAP (BACID) ONE ×3 (09:47→20:14)
[2020-02-20] MEDS ORDERED: LANSOPRAZOLE SUSPENSION 30 MG/10 ML ORAL SYRINGE (FIRST-LANSOPRAZOLE) ONE (09:47)
[2020-02-20] MEDS ORDERED: DICLOFENAC EPOLAMINE 1.3 % PATCH ONE ×2 (09:47→20:14)
[2020-02-20] MEDS ORDERED: VITAMIN D 1,000 INTERNATIONAL UNITS TABLET ONE (09:47)
[2020-02-20] MEDS ORDERED: NICOTINE 21MG/24HR 1 EA TRANSDERMAL ONE (09:47)
[2020-02-20] MEDS ORDERED: CYANOCOBALAMIN 500 MCG TAB ONE (09:47)
[2020-02-20] MEDS ORDERED: ROSUVASTATIN 10 MG TAB (CRESTOR) ONE (09:47)
[2020-02-20] MEDS ORDERED: PROPRANOLOL 10 MG TAB ONE ×2 (12:13→20:14)
[2020-02-20] MEDS ORDERED: RIVAROXABAN 10 MG TAB (XARELTO) ONE (18:12)
[2020-02-20] MEDS ORDERED: hydrOXYzine 10 MG TAB ONE (20:14)
[2020-02-20] MEDS ORDERED: FLUoxetine 20 MG CAP ONE (20:14)
[2020-02-20] MEDS ORDERED: ACETAMINOPHEN TAB 650MG DOSE (2X325MG) ONE (20:14)
[2020-02-21] MEDS ORDERED: PROPRANOLOL 10 MG TAB ONE ×2 (08:10→20:17)
[2020-02-21] MEDS ORDERED: ROSUVASTATIN 10 MG TAB (CRESTOR) ONE (08:10)
[2020-02-21] MEDS ORDERED: LACTOBACILLUS ACIDOPHILUS CAP (BACID) ONE ×2 (08:10→20:17)
[2020-02-21] MEDS ORDERED: NICOTINE 21MG/24HR 1 EA TRANSDERMAL ONE (08:10)
[2020-02-21] MEDS ORDERED: VITAMIN D 1,000 INTERNATIONAL UNITS TABLET ONE (08:10)
[2020-02-21] MEDS ORDERED: DICLOFENAC EPOLAMINE 1.3 % PATCH ONE ×2 (08:10→20:17)
[2020-02-21] MEDS ORDERED: DOCUSATE SOD LIQ 100MG/10ML UDC ONE (08:10)
[2020-02-21] MEDS ORDERED: LANSOPRAZOLE SUSPENSION 30 MG/10 ML ORAL SYRINGE (FIRST-LANSOPRAZOLE) ONE (08:10)
[2020-02-21] MEDS ORDERED: CYANOCOBALAMIN 500 MCG TAB ONE (08:10)
[2020-02-21] MEDS ORDERED: guaiFENesin SYRUP 200 MG/10 ML UDC ONE (08:10)
[2020-02-21] MEDS ORDERED: SENNA 8.6 MG TAB (SENOKOT) ONE (20:17)
[2020-02-21] MEDS ORDERED: FLUoxetine 20 MG CAP ONE (20:17)
[2020-02-21] MEDS ORDERED: ACETAMINOPHEN TAB 650MG DOSE (2X325MG) ONE (20:17)
[2020-02-21] MEDS ORDERED: RIVAROXABAN 10 MG TAB (XARELTO) ONE (20:17)
[2020-02-21] MEDS ORDERED: hydrOXYzine 10 MG TAB ONE (20:17)
[2020-02-22] MEDS ORDERED: LACTOBACILLUS ACIDOPHILUS CAP (BACID) ONE ×3 (08:25→22:02)
[2020-02-22] MEDS ORDERED: CYANOCOBALAMIN 500 MCG TAB ONE (08:25)
[2020-02-22] MEDS ORDERED: VITAMIN D 1,000 INTERNATIONAL UNITS TABLET ONE (08:25)
[2020-02-22] MEDS ORDERED: NICOTINE 21MG/24HR 1 EA TRANSDERMAL ONE (08:25)
[2020-02-22] MEDS ORDERED: ROSUVASTATIN 10 MG TAB (CRESTOR) ONE (08:25)
[2020-02-22] MEDS ORDERED: DICLOFENAC EPOLAMINE 1.3 % PATCH ONE ×2 (08:25→22:02)
[2020-02-22] MEDS ORDERED: PROPRANOLOL 10 MG TAB ONE ×2 (12:33→22:02)
[2020-02-22] MEDS ORDERED: RIVAROXABAN 10 MG TAB (XARELTO) ONE (17:01)
[2020-02-22] MEDS ORDERED: SENNA 8.6 MG TAB (SENOKOT) ONE (22:02)
[2020-02-22] MEDS ORDERED: FLUoxetine 20 MG CAP ONE (22:02)
[2020-02-22] MEDS ORDERED: hydrOXYzine 25 MG TAB As Ordered ONE (22:03)
[2020-02-23] MEDS ORDERED: LANSOPRAZOLE SUSPENSION 30 MG/10 ML ORAL SYRINGE (FIRST-LANSOPRAZOLE) ONE ×2 (08:26→11:00)
[2020-02-23] MEDS ORDERED: DICLOFENAC EPOLAMINE 1.3 % PATCH ONE ×2 (08:26→13:00)
[2020-02-23] MEDS ORDERED: LACTOBACILLUS ACIDOPHILUS CAP (BACID) ONE ×3 (08:26→21:09)
[2020-02-23] MEDS ORDERED: VITAMIN D 1,000 INTERNATIONAL UNITS TABLET ONE (08:26)
[2020-02-23] MEDS ORDERED: ROSUVASTATIN 10 MG TAB (CRESTOR) ONE (08:26)
[2020-02-23] MEDS ORDERED: NICOTINE 21MG/24HR 1 EA TRANSDERMAL ONE (08:26)
[2020-02-23] MEDS ORDERED: CYANOCOBALAMIN 500 MCG TAB ONE (08:26)
[2020-02-23] MEDS ORDERED: guaiFENesin SYRUP 200 MG/10 ML UDC ONE (11:00)
[2020-02-23] MEDS ORDERED: ACETAMINOPHEN TAB 650MG DOSE (2X325MG) ONE ×2 (11:59→21:09)
[2020-02-23] MEDS ORDERED: PROPRANOLOL 10 MG TAB ONE (13:00)
[2020-02-23] MEDS ORDERED: RIVAROXABAN 10 MG TAB (XARELTO) ONE (17:02)
[2020-02-23] MEDS ORDERED: FLUoxetine 20 MG CAP ONE (21:09)
[2020-02-23] MEDS ORDERED: SENNA 8.6 MG TAB (SENOKOT) ONE (21:09)
--- NOTE | 2020-03-13 15:15 | IPNPDOC ---
PM&R Progress Note DATE OF SERVICE: Feb 15, 2020 Surgical Nurse Practitioner Progress Note Subjective: Patient reporting her mood and energy is gradually improving. REVIEW OF SYSTEMS: The following is a completed review of systems and has been reviewed. Review of systems otherwise unremarkable. PAIN: Patient self reports no pain EYES: No recent vision changes EARS, NOSE, & THROAT:+ dysphagia CARDIOVASCULAR: Denies chest pain or palpitations PULMONARY: Denies shortness of breath, +cough(improving) GASTROINTESTINAL: Denies constipation/diarrhea GENITOURINARY: +incontinence MUSCULOSKELETAL: left hip fracture NEUROLOGICAL:left sided paresis HEMATOLOGICAL: denies easy bruising SKIN: buttock rash (improving) PSYCHIATRIC: Unremarkable All other review of systems found to be negative. PHYSICAL EXAMINATION: VITAL SIGNS: Please see below. GENERAL: Pleasant and cooperative. No acute distress. HEENT: PERRL. Extraocular movements intact. Clear conjunctiva CARDIOVASCULAR: Regular rate and rhythm. No murmurs, rubs, or gallops LUNGS: Clear to auscultation bilaterally. No wheezes. No rhonchi ABDOMEN: Soft, nontender, nondistended. Positive bowel sounds. Normal active bowel sounds NEUROLOGICAL: Alert and oriented times three. Cranial nerves II through XII grossly intact. Sensation grossly diminished to light touch left UE and LE with extinction to touch EXTREMITIES: 5\5 strength right upper extremity, 2/5 LUE. 5\5 strength right lower extremity. 1/5 strength in left hip flexors, knee extensor, 0/5 ankle DF and EHL SKIN: sacrum with blanchable erythema, left posterior upper thigh with two lacerations, left hip incision with dermabond c/d/i ASSESSMENT:64-year-old F with past medical history of brain tumor who presents status post left hip fracture and acute stroke with left sided paresis PLAN: 1. 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 Ortho- s/p left hip fracture with kathy-arthroplasty- posterior hip precautions, f/u ortho (consulted) 4. Cardiac- recent echo showing chronic grade 1 diastolic CHF, daily weights, will avoid fluid restriction given dysphagia, monitor for fluid overload - HLD- statin 5. Resp- current smoker, c/u duonebs and guaifenesin, monitor for infection- no leukocytosis -nicotine patch 6. DVT ppx- xarelto 7. GI ppx- lanzaprazole 8. Pain- tylneol prn -left shoulder pain- c/u flector patch to left shoulder as patient would like a patch on for 24hrs a day and unable to do this with lidoderm 9. - s/p course of cefdinir for proteus UTI 10. Psych-c/u low dose propranolol for anxiety 11. Dispo- 02-24-20 to home, will need 24-7, slowly progressing, family training in process Allergies Coded Allergies: codeine (Verified Allergy, Intermediate, hives, 10/27/18) latex (Verified Allergy, Intermediate, hives, 10/27/18) raspberry (Verified Allergy, Intermediate, hives, 10/27/18) Current Medications Current Medications Current Medications Medications (Trade) Dose Ordered Sig/Hanny Route PRN Reason Start Time Stop Time Status Last Admin Dose Admin Acetaminophen (Tylenol Tab) 650 mg Q4HP PRN PO fever/ MILD PAIN (PS 1-4) 01/31/20 13:30 03/09/20 13:22 DC 02/14/20 11:16 Albuterol/ Ipratropium (Duoneb (Ipr 0.5mg/Alb 2.5mg)) 3 ml RTID NEB 01/31/20 20:00 03/09/20 13:22 DC 02/14/20 20:09 Cefdinir (Omnicef) 300 mg BID PO 02/04/20 09:00 02/08/20 21:00 DC 02/08/20 21:02 Cyanocobalamin (Vitamin B12) 1,000 mcg DAILY PO 02/01/20 09:00 03/09/20 13:22 DC 02/15/20 08:15 Dextrose/Sodium Chloride 1,000 ml @ 75 mls/hr [id number] IV 01/31/20 14:43 02/01/20 15:39 DC 02/01/20 05:56 Diclofenac Epolamine (Flector 1.3%) 1 patch Q12H TOP 02/12/20 09:00 03/12/20 07:43 DC 02/15/20 08:14 Docusate Sodium (Colace Liquid) 100 mg BID PO 02/02/20 21:00 03/09/20 13:23 DC 02/13/20 08:20 Docusate Sodium (Colace) 100 mg BID PO 01/31/20 21:00 02/02/20 11:55 DC 02/02/20 07:50 Fluoxetine HCl (PROzac) 20 mg QHS PO 01/31/20 21:00 03/09/20 13:22 DC 02/14/20 22:02 Guaifenesin (Robitussin) 10 ml TID PO 01/31/20 16:00 03/09/20 13:22 DC 02/15/20 08:14 Hydrocortisone (Hydrocortisone 1% Cream) apply to back BID TOP 02/05/20 09:00 03/09/20 13:24 DC 02/15/20 08:16 Hydrocortisone (Proctosol Hc) apply to back BID TOP 02/05/20 21:00 02/05/20 14:29 DC Hydroxyzine HCl (Atarax) 10 mg BIDP PRN PO itchy back 02/07/20 12:00 03/09/20 13:25 DC 02/14/20 08:33 Lactobacillus Acidophilus (Bacid) 1 ea TID PO 02/05/20 09:00 03/09/20 13:23 DC 02/15/20 08:15 Lansoprazole (First-Lansoprazole Oral Suspension) 30 mg DAILY PO 02/01/20 09:00 03/09/20 13:22 DC 02/15/20 08:14 Lidocaine (Lidoderm Patch) 1 patch QHS TD 02/06/20 21:00 02/12/20 11:35 DC 02/11/20 20:58 Lidocaine/ Diphenhydr/Alum/ Mg/Simeth (Magic Mouthwash) 5ML AC SSP 01/31/20 17:30 02/01/20 15:39 DC 02/01/20 14:28 Menthol/Methyl Salicylate (Bengay Cream) apply to painful are... BID TOP 02/07/20 21:00 03/09/20 13:26 DC 02/15/20 08:16 Nicotine (Nicoderm Cq 21mg) 1 patch DAILY TD 02/02/20 09:00 03/09/20 13:22 DC 02/15/20 08:14 Non-Formulary Medication ( See Comment Field Below ) REMOVE LIDODERM PATCH DAILY XX 02/07/20 09:00 02/12/20 11:40 DC 02/12/20 09:32 Nystatin (Mycostatin Powder, Nystop) 1 dose BID TOP 01/31/20 21:00 03/09/20 13:22 DC 02/15/20 08:16 Propranolol HCl (Inderal) 10 mg BID@1100,2100 PO 02/07/20 11:00 03/09/20 13:25 DC 02/14/20 22:03 Rivaroxaban (Xarelto) 10 mg DAILY@1800 PO 01/31/20 18:00 03/09/20 13:16 DC 02/14/20 17:34 Rivaroxaban (Xarelto) 20 mg DAILY@1800 PO 01/31/20 18:00 01/31/20 16:29 DC Rosuvastatin Calcium (Crestor) 20 mg DAILY PO 02/01/20 09:00 03/09/20 13:22 DC 02/15/20 08:14 Senna (Senokot) 1 tab QHS PO 01/31/20 21:00 03/09/20 13:22 DC 02/13/20 22:08 Vitamin D (Vitamin D) 1,000 units DAILY PO 02/01/20 09:00 03/09/20 13:22 DC 02/15/20 08:15 IRMA MONROY MD Mar 13, 2020 15:15
== END 2020-02-24 11:25 | disposition home or self-care (01) | DRG 560 ==
LOC: M PM&R 01-31 14:50
PROVIDERS: ADMIT Physical Medicine & Rehabilitation; ATTEND Physical Medicine & Rehabilitation
DX: S72.002D Fracture of unspecified part of neck of left femur, subsequent encounter for closed fracture with routine healing (principal); I69.352 Hemiplegia and hemiparesis following cerebral infarction affecting left dominant side; I50.32 Chronic diastolic (congestive) heart failure; I69.854 Hemiplegia and hemiparesis following other cerebrovascular disease affecting left non-dominant side; E78.5 Hyperlipidemia, unspecified; R29.6 Repeated falls; Z96.642 Presence of left artificial hip joint; I69.391 Dysphagia following cerebral infarction; R13.10 Dysphagia, unspecified; R30.0 Dysuria; R32 Unspecified urinary incontinence; R21 Rash and other nonspecific skin eruption; F17.200 Nicotine dependence, unspecified, uncomplicated; Z79.01 Long term (current) use of anticoagulants; Z79.899 Other long term (current) drug therapy; Z88.5 Allergy status to narcotic agent; Z91.040 Latex allergy status; Z91.018 Allergy to other foods; E78.49 Other hyperlipidemia; E55.9 Vitamin D deficiency, unspecified; E53.8 Deficiency of other specified B group vitamins; G40.909 Epilepsy, unspecified, not intractable, without status epilepticus; R26.89 Other abnormalities of gait and mobility; W18.30XD Fall on same level, unspecified, subsequent encounter; Y92.9 Unspecified place or not applicable